=== PATIENT | female | born 1940 | race Caucasian/White ===

== ENCOUNTER 2017-05-03 11:13 | Observation (INO) ==
--- NOTE | 2017-05-03 12:25 | Emergency Department Note ---
START Narrative - START START: I examined this patient and my medical decision-making was reviewed with the [employer]/PA/Advanced Practice Nurse/Resident Physician. I agree with the documented findings, disposition and treatment plan as described except to the extent set forth below. Patient was sent in because an elevated calcium level II days ago. She is essentially asymptomatic at this time. We will call the physician and get the calcium level and repeat a ionized calcium today. Results are pending. [id number]
[2017-05-03 13:24] LABS: VBG Ionized Calcium 1.58 mmol/L (1.15-1.35)
[2017-05-03] MEDS ORDERED: 0.9 % Sodium Chloride 1,000 ML IVC ONE (14:17)
--- NOTE | 2017-05-03 14:17 | Emergency Department Note ---
Disposition Clinical Impression: Hypercalcemia Disposition: Admitted As Inpatient Condition: Fair Time of Disposition: 15:00 Recheck wound or abnormal lab - General Chief Complaint: ED Recheck/Abnormal Lab/Rx Stated Complaint: High Calcium Time Seen by Provider: 05/03/17 11:36 Source: patient, family Mode of arrival: ambulatory Limitations: no limitations Vital Signs Reviewed: Yes - History of Present Illness HPI Narrative: Sammi Person is a 76 year old female presenting due to elevated calcium (13.0) on routine outpatient labs ordered by her tool design drafter, Dr. Lockwood, who she follows for CKD. Patient has been having fatigue for a few weeks and has noticed intermittent nausea for the past few days, though no vomiting. She has had several kidney stones recently and currently has a ureteral stent in place. She admits to polyuria and denies constipation. She denies confusion and neurologic complaints. Her chlorthalidone was discontinued today. She has a known history of uterine cancer and melanoma approximately 10 years ago, and part of her treatment included chemotherapy. - Related Data Home Medications Medication Instructions Recorded Confirmed Amitriptyline HCl [Amitriptyline 75 mg PO DAILY 05/03/17 05/03/17 HCl] Apremilast [Otezla] 30 mg PO BID 05/03/17 05/03/17 Ascorbic Acid [Vitamin C] 500 mg PO DAILY 05/03/17 05/03/17 Aspirin Enteric Coated [Aspirin EC] 81 mg PO DAILY 05/03/17 05/03/17 Carvedilol [Coreg] 25 mg PO BID 05/03/17 05/03/17 Chlorthalidone 12.5 mg PO DAILY 05/03/17 05/03/17 Cinnamon Bark [Cinnamon] 500 mg PO DAILY 05/03/17 05/03/17 Cranberry 500 mg PO DAILY 05/03/17 05/03/17 Fenofibrate Nanocrystallized 160 mg PO DAILY 05/03/17 05/03/17 [Triglide] Fiber Advance 1 tab PO TID 05/03/17 05/03/17 Insulin ASPART [NovoLOG] 16 unit SQ 0800,1200 05/03/17 05/03/17 Insulin ASPART [NovoLOG] 20 unit SQ 1700 05/03/17 05/03/17 Insulin Glargine,Hum.rec.anlog 42 unit SQ DAILY 05/03/17 05/03/17 [Lantus Solostar] Ketoconazole 2% CRM [Nizoral Cream] 1 appl TP DAILY 05/03/17 05/03/17 Lactobacillus [Culturelle] 1 each PO DAILY 05/03/17 05/03/17 Loratadine [Claritin] 10 mg PO DAILY 05/03/17 05/03/17 Multivitamin [One Daily 1 each PO DAILY 05/03/17 05/03/17 Multivitamin] [place]-3/Dha/Epa/Fish Oil [Fish Oil 1,000 mg PO DAILY 05/03/17 05/03/17 1,000 mg Softgel] Potassium Gluconate 594 mg PO DAILY 05/03/17 05/03/17 Pregabalin [Lyrica] 150 mg PO BID 05/03/17 05/03/17 Citizen Of [place] Rivka 2 tab PO DAILY PRN 05/03/17 05/03/17 Triamcinolone Acet 0.1% CRM 1 appl TP DAILY 05/03/17 05/03/17 [Kenalog] Vitamin E Acid Succinate [Vitamin 400 unit PO DAILY 05/03/17 05/03/17 E] hydrALAZINE [HydrALAZINE] 10 mg PO BID 05/03/17 05/03/17 Allergies Allergy/AdvReac Type Severity Reaction Status Date / Time iodine Allergy Rash Verified 05/03/17 11:18 IVP DYE Allergy Rash Uncoded 10/09/14 16:49 Constitutional: Denies: fever, chills Cardiovascular: Denies: chest pain Respiratory: Denies: dyspnea Gastrointestinal: Reports: nausea. Denies: abdominal pain, vomiting Neurological: Denies: headache Past Medical History - Past Medical History Medical history: Reports: cardiomyopathy, CHF, diabetes, hypertension, renal disease Surgical history: Reports: cancer surgery, hysterectomy, pacemaker/AICD Psychiatric history: Reports: no psych history MOTORBOAT MECHANIC INBOARD/OUTBOARD history: Reports: no MOTORBOAT MECHANIC INBOARD/OUTBOARD history - Social History Smoking Status: Never smoker Smokeless Tobacco Status: No Alcohol use: Reports: none Drug use: Reports: none Physical Exam - General Limitations: no limitations General appearance: alert, in no apparent distress - Head Head exam: atraumatic, normocephalic, normal inspection - Respiratory Respiratory exam: Present: normal lung sounds bilaterally. Absent: respiratory distress, accessory muscle use - Cardiovascular Cardiovascular exam: Present: regular rate, normal rhythm, normal heart sounds, +S1, +S2 - Abdominal Exam Abdominal exam: Present: soft, Non-Tender. Absent: distention, guarding, rebound - Neurological Exam Neurological exam: Present: other (reflexes 3+ in the upper extremities bilaterally, 2+ patellar reflexes) - Psychiatric Psychiatric exam: Present: normal affect, normal mood Course Vital Signs Temperature 97.9 F 05/03/17 11:18 Pulse Rate 81 05/03/17 11:18 Respiratory Rate 16 05/03/17 11:18 Blood Pressure 165/82 05/03/17 11:18 O2 Sat by Pulse Oximetry 96 05/03/17 11:18 Temperature 97.9 F 05/03/17 11:18 Pulse Rate 64 05/03/17 14:00 Respiratory Rate 18 05/03/17 14:00 Blood Pressure 159/80 05/03/17 14:00 O2 Sat by Pulse Oximetry 98 05/03/17 14:00 Oxygen Delivery Oxygen Delivery Room Air Recheck wound or abnormal lab - MDM Narrative Medical decision making narrative: Patient presented with elevated calcium of 13.0 on outpatient labs with some symptoms of hypercalcemia including fatigue, kidney stones, and . Chlorthalidone discontinued. Ionized calcium was found to 1.58. Spoke with Dr. Lockwood, who originally sent her for evaluation, about potential for outpatient management vs. observation and workup for hypercalcemia. Favored observation, so patient was started on IV fluids and discussed with Dr. Kramer, the admitting hospitalist. - Lab Data Lab results reviewed: Yes I reviewed the patient's lab results. Lab Results 05/03/17 Range/Units 13:12 Venous Ioniz Calcium 1.58 H (1.15-1.35) mmol/L S.B.A.R. - S.B.A.R. Situation: Demographics Background: Presenting Complaint Assessment: Vital Signs, Course and respsone to treatment, Pertinant Lab Results S.B.A.R. Report Given to: Dr. Kramer S.B.A.REver Repor Time: 15:20
[2017-05-03] MEDS ORDERED: Naloxone 0.4 MG/ML INJ IVP PRN (18:21)
[2017-05-03] MEDS ORDERED: 0.9 % Sodium Chloride 1,000 ML IVC SCH (18:30)
--- NOTE | 2017-05-03 21:18 | Internal Med History&Physical ---
Date of Encounter: 05/03/17 Time of Encounter: 16:14 Assessment and Plan (1) Hypercalcemia Current visit: Yes Status: Acute Will continue IV fluid hydration judiciously as patient has heart failure Workup including PTH, urine calcium, vit D levels, phosphorus, recheck labs in AM (2) Chronic kidney disease, stage III (moderate) Current visit: No Status: Acute (3) ICD (implantable cardioverter-defibrillator) in place Current visit: No Status: Acute (4) CHF (congestive heart failure) Current visit: No Status: Chronic Qualifiers: Qualified Code(s): I50.32 - Chronic diastolic (congestive) heart failure (5) Diabetes mellitus Current visit: No Status: Chronic Diabetic diet, ISS Qualifiers: Diabetes mellitus type: type 2 Diabetes mellitus fci insulin use: with head of product use Diabetes mellitus complication status: with kidney complications Diabetes mellitus complication detail: with chronic kidney disease Chronic kidney disease stage: stage 4 (severe) Qualified Code(s): E11.22 - Type 2 diabetes mellitus with diabetic chronic kidney disease; N18.4 - Chronic kidney disease, stage 4 (severe); Z79.4 - applications scientist (current) use of insulin (6) DVT prophylaxis Current visit: No Status: Acute Internal Medicine - H&P: HPI History of present illness: Sammi Person is a 76 year old female with CKD presenting due to elevated calcium of 13 after getting routine outpatient labs ordered by her float nurse. Patient reports no symptoms at this time but did report some fatigue. She denies any abdominal pain or change in mental status. She has some nausea as well. She has history of kidney stones and has ureteral stent. She is on chlorthalidone which was discontinued today due to elevated calcium. In ED an ioized calcium was checked and elevated at 1.58. Patient admitted for IV fluid treatment of hypercalcemia. Past Med Surg Social Fam HX - Past Medical History Medical history: arthritis, cancer, cardiomyopathy, CHF, diabetes, hypertension , renal disease Psychiatric history: no psych history - Past Surgical History Surgical History: cancer surgery, hysterectomy, pacemaker/AICD - Social History Smoking Status: Never smoker Smokeless Tobacco Status: No Alcohol use: none Drug use: none - Family History Father Adopted: No Family Member Ethnicity: Non- Living Status: Hx Family Cardiac Disorders: Yes Hx Family Respiratory Disorders: No Hx Family Cancer: Yes Hx Family GI Disorders: No Hx Family Endocrine Disorder: Yes Hx Family Neuromuscular Disorders: No Hx Family Neurologic Disorders: No Hx Family HEENT Disorders: No Hx Family Autoimmune Disorders: Yes Internal Medicine - H&P: Meds Amitriptyline HCl [Amitriptyline HCl] 75 mg PO HS 05/03/17 [History] Apremilast [Otezla] 30 mg PO BID 05/03/17 [History] Ascorbic Acid [Vitamin C] 500 mg PO DAILY 05/03/17 [History] Aspirin Enteric Coated [Aspirin EC] 81 mg PO DAILY 05/03/17 [History] Carvedilol [Coreg] 25 mg PO BID 05/03/17 [History] Chlorthalidone 12.5 mg PO DAILY 05/03/17 [History] Cinnamon Bark [Cinnamon] 500 mg PO DAILY 05/03/17 [History] Cranberry 500 mg PO DAILY 05/03/17 [History] Fenofibrate Nanocrystallized [Triglide] 160 mg PO DAILY 05/03/17 [History] Fiber Advance 1 tab PO TID 05/03/17 [History] Insulin ASPART [NovoLOG] 16 unit SQ 0800,1200 05/03/17 [History] Insulin ASPART [NovoLOG] 20 unit SQ 1700 05/03/17 [History] Insulin Glargine,Hum.rec.anlog [Lantus Solostar] 42 unit SQ DAILY 05/03/17 [ History] Ketoconazole 2% CRM [Nizoral Cream] 1 appl TP DAILY 05/03/17 [History] Lactobacillus [Culturelle] 1 each PO DAILY 05/03/17 [History] Loratadine [Claritin] 10 mg PO DAILY 05/03/17 [History] Multivitamin [One Daily Multivitamin] 1 each PO DAILY 05/03/17 [History] [place]-3/Dha/Epa/Fish Oil [Fish Oil 1,000 mg Softgel] 1,000 mg PO DAILY 05/03/17 [History] Potassium Gluconate 594 mg PO DAILY 05/03/17 [History] Pregabalin [Lyrica] 150 mg PO TID 05/03/17 [History] [place] Rivka 2 tab PO DAILY PRN 05/03/17 [History] Triamcinolone Acet 0.1% CRM [Kenalog] 1 appl TP DAILY 05/03/17 [History] Vitamin E Acid Succinate [Vitamin E] 400 unit PO DAILY 05/03/17 [History] hydrALAZINE [HydrALAZINE] 10 mg PO BID 05/03/17 [History] 3 Allergy/AdvReac Type Severity Reaction Status Date / Time iodine Allergy Rash Verified 05/03/17 11:18 IVP DYE Allergy Rash Uncoded 10/09/14 16:49 All Systems PM: A 10-system review of systems was performed and is negative for pertinent findings except as documented above in the HPI. - Constitutional Constitutional: fatigue, no chills, no fever(s), no night sweats - EENT Eyes: no change in vision, no discharge, no pain, no photophobia Ears: no ear discharge, no ear pain, no tinnitus Nose, mouth and throat: no dysphagia, no nasal discharge, no neck pain, no sore throat - Cardiovascular Cardiovascular ROS IM: no chest pain, no diaphoresis, no dyspnea, no lightheadedness, no palpitations, no syncope - Respiratory Respiratory: no cough, no dyspnea, no wheezing, no excessive phlegm production - Gastrointestinal Gastrointestinal: no abdominal pain, no diarrhea, no hematemesis, no hematochezia, no melena, no nausea, no vomiting - Genitourinary Genitourinary: no change in urinary stream, no dysuria, no flank pain, no hematuria - Musculoskeletal Musculoskeletal ROS IM: no numbness, no tingling - Integumentary Integumentary IM: no rash, no unusual bruising - Neurological Neurological ROS: no confusion, no convulsions, no focal weakness, no numbness, no tingling, no tremor(s) - Hematologic/Lymphatic Hematologic/Lymphatic: no easy bruising - Constitutional Vitals: Temp Pulse Resp BP Pulse Ox 97.8 F 77 18 166/77 95 05/03/17 19:45 05/03/17 19:45 05/03/17 19:45 05/03/17 19:45 05/03/17 19:45 - Head Head exam: Present: atraumatic, normocephalic - Eye Eye exam: Present: PERRL, conjuntiva pink, sclera anicteric Pupils: Present: PERRL - Neck Neck exam general surgery: Present: supple, trachea midline. Absent: lymphadenopathy - Respiratory Respiratory exam: Present: CTAB. Absent: accessory muscle use, rales, rhonchi, wheezes - Cardiovascular Cardiovascular exam: Present: RRR, +S1, +S2. Absent: diastolic murmur, gallop, rubs, systolic murmur - GI/Abdominal GI/Abdominal exam: Present: normal bowel sounds, soft, no peritoneal signs. Absent: distended, tenderness - Extremities Exam Extremities exam: Present: warm, radial pulses palpable and symmetrical. Absent : calf tenderness, cyanotic, pedal edema - Neurological Exam Neurological exam: Present: CN II-XII intact, oriented X3, no focal deficits. Absent: pronater drift, facial droop, speech deficit - Skin Skin exam: Present: dry, intact
[2017-05-03] MEDS: 0.9 % Sodium Chloride 1,000 ML IVC SCH (21:46)
[2017-05-03] MEDS ORDERED: KRISS PO PRN (23:06)
[2017-05-04] MEDS: 0.9 % Sodium Chloride 1,000 ML IVC SCH ×3 (03:53→19:22)
[2017-05-04 05:13] LABS: Calcium 11.7 mg/dL (8.6-10.3); Potassium 3.6 mEq/L (3.5-5.1)
[2017-05-04 05:18] LABS: Eosinophils % 4.5 %; Hematocrit 28.3 % (35.3-44.9); Hemoglobin 9.2 g/dL (11.5-15.4); Immature Granulocytes % 0.5 % (0-4); Mean Corpuscular HGB Conc 32.5 g/dL (31.6-35.5); Red Cell Distribution Width 15.4 % (11.5-14.5)
[2017-05-04 05:20] LABS: Eosinophils # 0.2 K/mcL (0.0-0.6); Immature Platelets 16.6 % (1.1-6.1); Lymphocytes # 1.3 K/mcL (0.6-4.6); Lymphocytes % 33.2 %; Mean Corpuscular Hemoglobin 30.8 pg (28.0-33.3); Mean Corpuscular Volume 94.6 fL (83.0-100.0); Mean Platelet Volume 14.1 fL (9.4-12.4); Monocytes # 0.3 K/mcL (0.0-1.3); Monocytes % 8.6 %; Neutrophils # 2.1 K/mcL (1.6-8.9); Nucleated Red Blood Cells 0.5 /100 WBC (0); Red Blood Count 2.99 M/mcL (3.82-4.97); Segmented Neutrophils % 52.2 %
[2017-05-04 05:28] LABS: Platelet Count 74 K/mcL (140-400)
[2017-05-04] MEDS: Fenofibrate 54 MG TABLET PO SCH (08:11)
[2017-05-04] MEDS: Multivit/Ca/Min/Fe/FA 1 TAB TABLET PO SCH (08:11)
[2017-05-04] MEDS: hydrALAZINE 10 MG TABLET PO SCH ×2 (08:11→21:17)
[2017-05-04] MEDS: Aspirin Enteric Coated 81 MG Tablet PO SCH (08:12)
[2017-05-04] MEDS: Ascorbic Acid 500 MG TABLET PO SCH (08:12)
[2017-05-04] MEDS: Insulin LISPRO 300 UNITS/3 ML VIAL SQ SCH ×4 (08:12→16:57)
[2017-05-04] MEDS: Lactobacillus 1 EACH CAP.SPRINK PO SCH (08:12)
[2017-05-04] MEDS: Loratadine 10 MG TABLET PO SCH (08:12)
[2017-05-04] MEDS: Triamcinolone Acet 0.1% CRM 15 GM TUBE TP SCH (08:18)
[2017-05-04] MEDS: Ketoconazole 2% CRM 15 GM TUBE TP SCH (08:18)
[2017-05-04 08:23] LABS: VBG Ionized Calcium 1.39 mmol/L (1.15-1.35)
[2017-05-04] MEDS ORDERED: *HR* Dextrose 50 % in Water (Syg) 50 ML SYRINGE IVP PRN (08:51)
[2017-05-04] MEDS ORDERED: Dextrose Gel 15 GM/37.5 ML TUBE PO PRN ×2 (08:51)
[2017-05-04] MEDS ORDERED: D5% in Water 1,000 ML IVC PRN (08:51)
[2017-05-04] MEDS ORDERED: POTASSIUM GLUCONATE PO SCH (09:00)
[2017-05-04] MEDS ORDERED: (Fish Oil 1,000 Mg Softgel) PO SCH (09:00)
[2017-05-04] MEDS ORDERED: (Apremilast [Otezla] 30 MG) PO SCH (09:00)
[2017-05-04] MEDS ORDERED: (Cranberry [Cranberry] 500 MG) PO SCH (09:00)
[2017-05-04] MEDS ORDERED: (Cinnamon Bark [Cinnamon] 500 MG) PO SCH (09:00)
[2017-05-04] MEDS ORDERED: Pregabalin 75 MG CAPSULE PO SCH ×2 (09:00→15:00)
--- NOTE | 2017-05-04 09:59 | Internal Med Progress Note ---
Date of Encounter: 05/04/17 Time of Encounter: 09:54 - Assessment and plan (1) Hypercalcemia Current Visit: Yes Status: Acute Assessment and plan: - PTH low, Phos normal. Pt states she did not take Tums or other calcium containing meds, Vit D level normal, will order PTH-rp. - Likely etiology is medication side-effect of Chlothalidone. Chlothalidone dc' ed. - Ca 11.7 down from 13 today. - continue IVF, repeat BMP in am. (2) Diabetes mellitus Current Visit: No Status: Chronic Assessment and plan: fairly well-controlled, continue insulin and insulin SS. Qualifiers: Diabetes mellitus type: type 2 Diabetes mellitus director long term care insulin use: with senior living use Diabetes mellitus complication status: with kidney complications Diabetes mellitus complication detail: with chronic kidney disease Chronic kidney disease stage: stage 4 (severe) Qualified Code(s): E11.22 - Type 2 diabetes mellitus with diabetic chronic kidney disease; N18.4 - Chronic kidney disease, stage 4 (severe); N18.4 - Chronic kidney disease, stage 4 (severe); N18.4 - Chronic kidney disease, stage 4 (severe); N18.4 - Chronic kidney disease, stage 4 (severe); Z79.4 - care home (current) use of insulin; Z79.4 - termination clerk (current) use of insulin; Z79.4 - care home (current) use of insulin; Z79.4 - care home (current) use of insulin (3) ICD (implantable cardioverter-defibrillator) in place Current Visit: No Status: Acute (4) Chronic kidney disease, stage III (moderate) Current Visit: No Status: Chronic Assessment and plan: - stable. - Time Spent With Patient 25 - 35 minutes - Subjective Interval history: Pt seen and examined. She has no complaints and wants to go home. - Constitutional Vitals: Temp Pulse Resp BP Pulse Ox 97.9 F 65 16 137/78 96 05/04/17 06:42 05/04/17 06:42 05/04/17 06:42 05/04/17 06:42 05/04/17 06:42 Exam: PHYSICAL EXAMINATION: GENERAL APPEARANCE: The patient is alert, oriented and in no acute distress. HEENT: Head is normocephalic. The sinuses are nontender. Pupils are equal and reactive. The nares are patent. Oropharynx clear without lesions. NECK: Supple without lymphadenopathy. HEART: Regular rate and rhythm. LUNGS: No crackles or wheezes are heard. ABDOMEN: Soft, nontender, nondistended with good bowel sounds heard. Inguinal area is normal. EXTREMITIES: Without cyanosis, clubbing or edema. NEUROLOGICAL: Gross nonfocal. SKIN: Warm and dry without any rash. Internal Medicine: Result - Labs CBC & Chem 7: 05/04/17 04:33 05/04/17 04:33 Labs: Short CBC 05/04/17 Range/Units 04:33 WBC 4.0 L (4.3-11.1) K/mcL Hgb 9.2 L (11.5-15.4) g/dL Hct 28.3 L (35.3-44.9) % Plt Count 74 L (140-400) K/mcL Neutrophils # 2.1 (1.6-8.9) K/mcL BMP 05/04/17 04:33 Sodium 139 Potassium 3.6 Chloride 106 Carbon Dioxide 25 BUN 47 H Creatinine 2.00 H Glucose 114 H Calcium 11.7 H Consult Discharge Plan - Plan Referrals: Murphy Huang Jr, MD [Primary Care Provider] -
[2017-05-04] MEDS: Psyllium 1 PACKET POWD.PACK PO SCH ×2 (15:19→21:18)
[2017-05-04] MEDS: Pregabalin 75 MG CAPSULE PO SCH ×2 (15:20→21:17)
[2017-05-04] MEDS ORDERED: Insulin LISPRO 300 UNITS/3 ML VIAL SQ SCH ×2 (17:00→21:00)
[2017-05-05] MEDS ORDERED: 0.9 % Sodium Chloride 1,000 ML IVC SCH (02:30)
[2017-05-05 03:57] LABS: Hemoglobin 8.7 g/dL (11.5-15.4); Red Cell Distribution Width 15.5 % (11.5-14.5)
[2017-05-05 03:59] LABS: Hematocrit 27.4 % (35.3-44.9); Immature Platelets 14.7 % (1.1-6.1); Mean Corpuscular HGB Conc 31.8 g/dL (31.6-35.5); Mean Corpuscular Hemoglobin 30.7 pg (28.0-33.3); Mean Corpuscular Volume 96.8 fL (83.0-100.0); Mean Platelet Volume 13.7 fL (9.4-12.4); Red Blood Count 2.83 M/mcL (3.82-4.97)
[2017-05-05 04:02] LABS: Calcium 9.4 mg/dL (8.6-10.3); Potassium 3.7 mEq/L (3.5-5.1)
[2017-05-05] MEDS: Aspirin Enteric Coated 81 MG Tablet PO SCH (08:21)
[2017-05-05] MEDS: Pregabalin 75 MG CAPSULE PO SCH (08:21)
[2017-05-05] MEDS: Multivit/Ca/Min/Fe/FA 1 TAB TABLET PO SCH (08:21)
[2017-05-05] MEDS: Fenofibrate 54 MG TABLET PO SCH (08:21)
[2017-05-05] MEDS: Lactobacillus 1 EACH CAP.SPRINK PO SCH (08:21)
[2017-05-05] MEDS: hydrALAZINE 10 MG TABLET PO SCH (08:21)
[2017-05-05] MEDS: Psyllium 1 PACKET POWD.PACK PO SCH (08:21)
[2017-05-05] MEDS: Ascorbic Acid 500 MG TABLET PO SCH (08:21)
[2017-05-05] MEDS: Triamcinolone Acet 0.1% CRM 15 GM TUBE TP SCH (08:22)
[2017-05-05] MEDS: 0.9 % Sodium Chloride 1,000 ML IVC SCH (08:22)
[2017-05-05] MEDS: Loratadine 10 MG TABLET PO SCH (08:22)
[2017-05-05] MEDS: Ketoconazole 2% CRM 15 GM TUBE TP SCH (08:23)
[2017-05-05] MEDS: Insulin LISPRO 300 UNITS/3 ML VIAL SQ SCH ×4 (08:23→12:18)
[2017-05-05 10:47] VITALS: BP 120/64
--- NOTE | 2017-05-05 11:47 | Discharge Summary ---
- NOTES TO OUTPATIENT PROVIDER Notes to Outpatient Provider: f/u with PCP within a week for PTH-rp results and repeat BMP for hypercalcemia. f/u with nephrology within a week. f/u with urology for stent removal. Orders not resulted at time of discharge: Pending orders 05/04/17 10:47 Parathormone Related Peptide Routine Date of Encounter: 05/05/17 Time of Encounter: 11:44 - Discharge Diagnosis (1) Hypercalcemia Priority: Primary Status: Acute (2) Diabetes mellitus Priority: Secondary Status: Chronic Qualifiers: Diabetes mellitus type: type 2 Diabetes mellitus middle or intermediate school principal insulin use: with middle or intermediate school principal use Diabetes mellitus complication status: with kidney complications Diabetes mellitus complication detail: with chronic kidney disease Chronic kidney disease stage: stage 4 (severe) Qualified Code(s): E11.22 - Type 2 diabetes mellitus with diabetic chronic kidney disease; N18.4 - Chronic kidney disease, stage 4 (severe); N18.4 - Chronic kidney disease, stage 4 (severe); N18.4 - Chronic kidney disease, stage 4 (severe); N18.4 - Chronic kidney disease, stage 4 (severe); Z79.4 - halfway (current) use of insulin; Z79.4 - intermediate manager (current) use of insulin; Z79.4 - intermediate manager (current) use of insulin; Z79.4 - intermediate manager (current) use of insulin (3) ICD (implantable cardioverter-defibrillator) in place Priority: Secondary Status: Chronic (4) Chronic kidney disease, stage III (moderate) Priority: Secondary Status: Chronic Hospital course: Ms. Person is a 76 year old female with past medical history of CKD, kidney stone, and diabetes presented from her physician's office for hypercalcemia. Initial serum calcium was 13. She was treated with IV fluid, serum calcium gradually decreased. It is 9.7 on discharge day. Labs revealed decreased PTH, normal phosphorus, normal vitamin D level, and normal TSH. PTH related peptide was ordered but results still pending. Chest x-ray to screening for malignancy was negative. Her urine calcium level was normal. It is suspected that hypercalcemia was medication related, chlorthalidone was DC'd. Her calcium level has returned to normal levels this morning. She will be discharged home today. She was instructed to follow-up PCP within a week for repeat calcium level and review the test results of PTH related peptide. She will also follow-up with urology for kidney stone and the ureteral stent removal. She will also follow up with nephrology for chronic kidney disease. She was instructed to stop taking chlorthalidone. Discharge discussed with: patient, nurse Time spent discussing smoking cessation with patient: more than 10 minutes - Time Spent with Patient Total time spent providing and/or coordinating discharge services: Greater than 30 minutes - Discharge Medications Home Medications: Amitriptyline HCl 75 mg PO HS 05/03/17 [History] Apremilast [Otezla] 30 mg PO BID 05/03/17 [History] Ascorbic Acid [Vitamin C] 500 mg PO DAILY 05/03/17 [History] Aspirin Enteric Coated [Aspirin EC] 81 mg PO DAILY 05/03/17 [History] Carvedilol [Coreg] 25 mg PO BID 05/03/17 [History] Cinnamon Bark [Cinnamon] 500 mg PO DAILY 05/03/17 [History] Cranberry 500 mg PO DAILY 05/03/17 [History] Fenofibrate Nanocrystallized [Triglide] 160 mg PO DAILY 05/03/17 [History] Fiber Advance 1 tab PO TID 05/03/17 [History] Insulin ASPART [NovoLOG] 16 unit SQ 0800,1200 05/03/17 [History] Insulin ASPART [NovoLOG] 20 unit SQ 1700 05/03/17 [History] Insulin Glargine,Hum.rec.anlog [Lantus Solostar] 42 unit SQ DAILY 05/03/17 [ History] Ketoconazole 2% CRM [Nizoral Cream] 1 appl TP DAILY 05/03/17 [History] Lactobacillus [Culturelle] 1 each PO DAILY 05/03/17 [History] Loratadine [Claritin] 10 mg PO DAILY 05/03/17 [History] Multivitamin [One Daily Multivitamin] 1 each PO DAILY 05/03/17 [History] [place]-3/Dha/Epa/Fish Oil [Fish Oil 1,000 mg Softgel] 1,000 mg PO DAILY 05/03/17 [History] Potassium Gluconate 594 mg PO DAILY 05/03/17 [History] Pregabalin [Lyrica] 150 mg PO TID 05/03/17 [History] [place] Rivka 2 tab PO DAILY PRN 05/03/17 [History] Triamcinolone Acet 0.1% CRM [Kenalog] 1 appl TP DAILY 05/03/17 [History] Vitamin E Acid Succinate [Vitamin E] 400 unit PO DAILY 05/03/17 [History] hydrALAZINE [HydrALAZINE] 10 mg PO BID 05/03/17 [History] Allergies/Adverse Reactions: 3 Allergy/AdvReac Type Severity Reaction Status Date / Time iodine Allergy Rash Verified 05/03/17 11:18 IVP DYE Allergy Rash Uncoded 10/09/14 16:49 Date of admission: 05/03/17 18:18 Primary care physician: Murphy Huang Jr, MD Anticipated date of discharge: 05/05/17 - Constitutional Vitals: Temp Pulse Resp BP Pulse Ox 97.9 F 88 15 120/64 95 05/05/17 10:46 05/05/17 10:46 05/05/17 10:46 05/05/17 10:46 05/05/17 10:46 Exam: PHYSICAL EXAMINATION: GENERAL APPEARANCE: The patient is alert, oriented and in no acute distress. HEENT: Head is normocephalic. The sinuses are nontender. Pupils are equal and reactive. The nares are patent. Oropharynx clear without lesions. NECK: Supple without lymphadenopathy. HEART: Regular rate and rhythm. LUNGS: No crackles or wheezes are heard. ABDOMEN: Soft, nontender, nondistended with good bowel sounds heard. Inguinal area is normal. EXTREMITIES: Without cyanosis, clubbing or edema. NEUROLOGICAL: Gross nonfocal. SKIN: Warm and dry without any rash. - Patient Status Disposition: Home, Self-Care Condition: Fair Functional capacity at discharge: independent ambulation Overall status at discharge: patient is back to baseline - Discharge Instructions Follow Up With: Murphy Huang Jr, MD [Primary Care Provider] - - Diet and Activity Activity: increase activity as tolerated Diet: diabetic diet
== END 2017-05-05 13:10 | disposition home or self-care (01) ==
LOC: EMEROO 11:13 → 2ANU 11:13
PROVIDERS: ADMIT Student in an Organized Health Care Education/Training Program; ATTEND Family Medicine

== ENCOUNTER 2017-09-26 19:56 | Inpatient (IN) ==
[2017-09-26 20:29] LABS: Basophils # 0.1 K/mcL (0.0-0.2); Basophils % 0.9 %; Eosinophils # 0.1 K/mcL (0.0-0.6); Eosinophils % 1.8 %; Hematocrit 32.6 % (35.3-44.9); Hemoglobin 10.6 g/dL (11.5-15.4); Immature Granulocytes % 0.9 % (0-4); Lymphocytes # 1.2 K/mcL (0.6-4.6); Lymphocytes % 17.8 %; Mean Corpuscular HGB Conc 32.5 g/dL (31.6-35.5); Mean Corpuscular Hemoglobin 30.5 pg (28.0-33.3); Mean Corpuscular Volume 93.7 fL (83.0-100.0); Mean Platelet Volume 13.1 fL (9.4-12.4); Monocytes # 0.6 K/mcL (0.0-1.3); Monocytes % 8.2 %; Neutrophils # 4.7 K/mcL (1.6-8.9); Platelet Count 109 K/mcL (140-400); Red Blood Count 3.48 M/mcL (3.82-4.97); Red Cell Distribution Width 15.9 % (11.5-14.5); Segmented Neutrophils % 70.4 %
[2017-09-26 20:40] LABS: Bilirubin,Urine Negative (Negative); Blood,Urine Moderate (Negative); Clarity,Urine Turbid (Clear); Color,Urine Yellow (Yellow); Glucose,Urine (UA) Normal (Normal); Ketones,Urine Negative (Negative); Leukocyte Esterase,Urine Large (Negative); Nitrite,Urine Negative (Negative); Protein,Urine >=300 mg/dL (Neg-Trace); Specific Gravity,Urine 1.023 (1.010-1.025); Urobilinogen,Urine Normal (Normal)
[2017-09-26 20:44] LABS: WBC,Urine TNTC per hpf (0-3)
[2017-09-26 20:45] LABS: Calcium 9.5 mg/dL (8.6-10.3); Potassium 5.1 mEq/L (3.5-5.1)
[2017-09-26 20:47] LABS: RBC,Urine Present per hpf (0-3); Squamous Epithelial Cell,Urine Present per lpf (None-Few)
[2017-09-26 20:48] LABS: Bacteria,Urine Present per hpf (None-Few)
--- NOTE | 2017-09-26 21:03 | Emergency Department Note ---
Disposition Clinical Impression: Ureterolithiasis, Bladder mass, Acute kidney injury Hydronephrosis Qualifiers: Hydronephrosis type: unspecified Qualified Code(s): N13.30 - Unspecified hydronephrosis Disposition: Admitted As Inpatient Condition: Good Referrals: Murphy Huang Jr, MD [Primary Care Provider] - Forms: ED Satisfaction Letter, Work/School Release Abdominal Pain HPI - General Chief Complaint: ED Abdominal Pain Stated Complaint: lower left quadrant pain incontinency Time Seen by Provider: 09/26/17 20:10 Source: patient, family Mode of arrival: private vehicle Limitations: no limitations Nursing Notes Reviewed: Yes Vital Signs Reviewed: Yes - History of Present Illness HPI Narrative: 77-year-old female presents to the ER with a complaint of left lower quadrant pain. Symptoms for the last couple of days. She has been treated as an outpatient over the last month on a course of Macrobid. She states she continues to have dysuria. She denies any fevers, nausea, vomiting or diarrhea. Pain is localized to the left lower quadrant. Reports that she had a stone removed several months ago. She reports a past surgical history of cholecystectomy, appendectomy, radical hysterectomy. No other complaints. Pt Subjective Complaint: abdominal pain Onset (ago): day(s) Consistency: intermittent Location: LLQ Pain Severity: severe Pain Scale: 10 Radiation: none Migration to: no migration Improves with: nothing Worsens with: other (Urinating) Associated symptoms: Reports: dysuria Treatments prior to arrival: none - Related Data Home Medications Medication Instructions Recorded Confirmed Amitriptyline HCl 75 mg PO HS 05/03/17 09/26/17 Ascorbic Acid [Vitamin C] 500 mg PO DAILY 05/03/17 09/26/17 Aspirin Enteric Coated [Aspirin EC] 81 mg PO DAILY 05/03/17 09/26/17 Carvedilol [Coreg] 25 mg PO BID 05/03/17 09/26/17 Cinnamon Bark [Cinnamon] 500 mg PO DAILY 05/03/17 09/26/17 Cranberry 500 mg PO DAILY 05/03/17 09/26/17 Fenofibrate Nanocrystallized 160 mg PO DAILY 05/03/17 09/26/17 [Triglide] Fiber Advance 1 tab PO TID 05/03/17 09/26/17 Insulin ASPART [NovoLOG] 16 unit SQ 0800,1200 05/03/17 09/26/17 Insulin ASPART [NovoLOG] 20 unit SQ 1700 05/03/17 09/26/17 Insulin Glargine,Hum.rec.anlog 42 unit SQ DAILY 05/03/17 09/26/17 [Lantus Solostar] Ketoconazole 2% CRM [Nizoral Cream] 1 appl TP DAILY 05/03/17 09/26/17 Lactobacillus [Culturelle] 1 each PO DAILY 05/03/17 09/26/17 Loratadine [Claritin] 10 mg PO DAILY 05/03/17 09/26/17 Multivitamin [One Daily 1 each PO DAILY 05/03/17 09/26/17 Multivitamin] [place]-3/Dha/Epa/Fish Oil [Fish Oil 1,000 mg PO DAILY 05/03/17 09/26/17 1,000 mg Softgel] Potassium Gluconate 594 mg PO DAILY 05/03/17 09/26/17 Pregabalin [Lyrica] 150 mg PO BID 05/03/17 09/26/17 Icelandic Rivka 2 tab PO DAILY PRN 05/03/17 09/26/17 Triamcinolone Acet 0.1% CRM 1 appl TP DAILY 05/03/17 09/26/17 [Kenalog] Vitamin E Acid Succinate [Vitamin 400 unit PO DAILY 05/03/17 09/26/17 E] hydrALAZINE [HydrALAZINE] 10 mg PO BID 05/03/17 09/26/17 Nitrofurantoin (BID) [Macrobid] 100 mg PO DAILY 09/26/17 09/26/17 Secukinumab [Cosentyx Pen] 300 mg SQ QMONTH 09/26/17 09/26/17 Allergies Allergy/AdvReac Type Severity Reaction Status Date / Time iodine Allergy Rash Verified 09/26/17 21:31 IVP DYE Allergy Rash Uncoded 09/26/17 19:57 All systems ED: reviewed and negative except as stated. Constitutional: Denies: fever Gastrointestinal: Reports: abdominal pain. Denies: nausea, vomiting, diarrhea Genitourinary: Reports: dysuria. Denies: hematuria Abdominal Pain PMH - Past Medical History Medical history: Reports: CHF, diabetes, hypertension, kidney stones Female Surgical History: Reports: appendectomy, cholecystectomy, hysterectomy, pacemaker/AICD DOG HAIR CLIPPER history: Reports: no DOG HAIR CLIPPER history Psychiatric history: Reports: no psych history - Social History Smoking status: Never smoker Alcohol use: Reports: none Drug use: Reports: none Physical Exam - General Limitations: no limitations General appearance: alert, in no apparent distress - Head Head exam: atraumatic, normocephalic - Eye Eye exam: Present: normal appearance - ENT ENT exam: normal exam - Neck Neck exam: Present: normal inspection - Chest Chest inspection: Present: normal inspection - Respiratory Respiratory exam: Present: normal lung sounds bilaterally - Cardiovascular Cardiovascular exam: Present: regular rate, normal rhythm, normal heart sounds - Abdominal Exam Abdominal exam: Present: soft, Non-Tender. Absent: tenderness, distention, guarding, rigidity - Extremities Exam Extremities exam: Present: normal inspection, full ROM - Expanded Upper Extremity Exam Shoulder exam: Present: normal inspection, full ROM Arm exam: Present: normal inspection, full ROM Elbow exam: Present: normal inspection, full ROM Forearm/Wrist exam: Present: normal inspection, full ROM Hand exam: Present: normal inspection, full ROM - Expanded Lower Extremity Exam Hip/Pelvis exam: Present: normal inspection, full ROM Upper leg exam: Present: normal inspection, full ROM Knee exam: Present: normal inspection, full ROM Lower leg exam: Present: normal inspection, full ROM Ankle exam: Present: normal inspection, full ROM Foot/toe exam: Present: normal inspection, full ROM - Skin Skin exam: Present: warm, dry Course Course Narrative: Patient seen and examined. Vital signs reviewed. CT imaging, labs, urinalysis. No pain at time of evaluation. - Consultations Consultation #1: I spoke with the on-call urologist Dr. Harris. Discussed patient's history exam imaging and labs. Agreeable with consultation with admission to the hospitalist. Vital Signs Temperature 99.3 F 09/26/17 19:58 Pulse Rate 105 09/26/17 19:58 Respiratory Rate 16 09/26/17 19:58 Blood Pressure 158/80 09/26/17 19:58 O2 Sat by Pulse Oximetry 94 09/26/17 19:58 Temperature 99.3 F 09/26/17 19:58 Pulse Rate 105 09/26/17 19:58 Respiratory Rate 16 09/26/17 19:58 Blood Pressure 158/80 09/26/17 19:58 O2 Sat by Pulse Oximetry 94 08/08/18 19:58 Oxygen Delivery Oxygen Delivery Room Air Abdominal Pain - MDM Narrative Medical decision making narrative: 77-year-old female with left lower quadrant abdominal pain. CT imaging demonstrates a urinary mass with tumor versus inflammatory process as well as a distal right ureteral stone causing bilateral hydronephrosis. Given his findings with a urinalysis demonstrating a UTI the patient is admitted to the hospital service with neurologic consultation. - Lab Data Lab results reviewed: Yes I reviewed the patient's lab results. Result diagrams: 09/26/17 20:14 09/26/17 20:14 Lab Results 09/26/17 09/26/17 09/26/17 Range/Units 20:14 20:14 20:14 WBC 6.7 (4.3-11.1) K/mcL RBC 3.48 L (3.82-4.97) M/mcL Hgb 10.6 L (11.5-15.4) g/dL Hct 32.6 L (35.3-44.9) % MCV 93.7 (83.0-100.0) fL MCH 30.5 (28.0-33.3) pg MCHC 32.5 (31.6-35.5) g/dL RDW 15.9 H (11.5-14.5) % Plt Count 109 L (140-400) K/mcL MPV 13.1 H (9.4-12.4) fL Immature Gran % 0.9 (0-4) % Seg Neutrophils % 70.4 % Lymphocytes % 17.8 % Monocytes % 8.2 % Eosinophils % 1.8 % Basophils % 0.9 % Neutrophils # 4.7 (1.6-8.9) K/mcL Lymphocytes # 1.2 (0.6-4.6) K/mcL Monocytes # 0.6 (0.0-1.3) K/mcL Eosinophils # 0.1 (0.0-0.6) K/mcL Basophils # 0.1 (0.0-0.2) K/mcL Sodium 136 (136-145) mEq/L Potassium 5.1 (3.5-5.1) mEq/L Chloride 103 (98-107) mEq/L Carbon Dioxide 24 (23-29) mEq/L BUN 51 H (8-23) mg/dL Creatinine 2.49 H (0.60-1.20) mg/dL Est GFR ( Amer) 23 L (> 60) Est GFR (Non-Af Amer) 19 L (> 60) BUN/Creatinine Ratio 20 (6-26) Glucose 233 H (70-105) mg/dL Calculated Osmolality 303 H (280-300) Lactic Acid 1.4 (0.5-2.2) mmol/L Calcium 9.5 (8.6-10.3) mg/dL Ur Specimen Adequacy Urine Color (Yellow) Urine Clarity (Clear) Urine pH (5.0-8.0) pH Units Ur Specific [place] (1.010-1.025) Urine Protein (Neg-Trace) mg/dL Urine Glucose (UA) (Normal) mg/dL Urine Ketones (Negative) mg/dL Urine Blood (Negative) Urine Nitrite (Negative) Urine Bilirubin (Negative) Urine Urobilinogen (Normal) mg/dL Ur Leukocyte Esterase (Negative) Urine Microscopic RBC (0-3) per hpf Urine Microscopic WBC (0-3) per hpf Ur Squamous Epith Cells (None-Few) per lpf Urine Bacteria (None-Few) per hpf Hyaline Casts Urine Yeast Ur Culture Indicated? (NO) 09/26/17 Range/Units 20:23 WBC (4.3-11.1) K/mcL RBC (3.82-4.97) M/mcL Hgb (11.5-15.4) g/dL Hct (35.3-44.9) % MCV (83.0-100.0) fL MCH (28.0-33.3) pg MCHC (31.6-35.5) g/dL RDW (11.5-14.5) % Plt Count (140-400) K/mcL MPV (9.4-12.4) fL Immature Gran % (0-4) % Seg Neutrophils % % Lymphocytes % % Monocytes % % Eosinophils % % Basophils % % Neutrophils # (1.6-8.9) K/mcL Lymphocytes # (0.6-4.6) K/mcL Monocytes # (0.0-1.3) K/mcL Eosinophils # (0.0-0.6) K/mcL Basophils # (0.0-0.2) K/mcL Sodium (136-145) mEq/L Potassium (3.5-5.1) mEq/L Chloride (98-107) mEq/L Carbon Dioxide (23-29) mEq/L BUN (8-23) mg/dL Creatinine (0.60-1.20) mg/dL Est GFR ( Amer) (> 60) Est GFR (Non-Af Amer) (> 60) BUN/Creatinine Ratio (6-26) Glucose (70-105) mg/dL Calculated Osmolality (280-300) Lactic Acid (0.5-2.2) mmol/L Calcium (8.6-10.3) mg/dL Ur Specimen Adequacy See below A Urine Color Yellow (Yellow) Urine Clarity Turbid A (Clear) Urine pH 7.0 (5.0-8.0) pH Units Ur Specific [place] 1.023 (1.010-1.025) Urine Protein >=300 H (Neg-Trace) mg/dL Urine Glucose (UA) Normal (Normal) mg/dL Urine Ketones Negative (Negative) mg/dL Urine Blood Moderate H (Negative) Urine Nitrite Negative (Negative) Urine Bilirubin Negative (Negative) Urine Urobilinogen Normal (Normal) mg/dL Ur Leukocyte Esterase Large H (Negative) Urine Microscopic RBC Present (0-3) per hpf Urine Microscopic WBC TNTC H (0-3) per hpf Ur Squamous Epith Cells Present (None-Few) per lpf Urine Bacteria Present (None-Few) per hpf Hyaline Casts Test Not Performed Urine Yeast Test Not Performed Ur Culture Indicated? YES A (NO) - Radiology Data Radiology results reviewed: Yes I reviewed the patient's radiology results. Abdomen/Pelvis CT 09/26/17 20:11 IMPRESSION: There is a mass of the left aspect of the urinary bladder accounting for the partial obstruction of the distal left ureter. Tumor is suspected. Asymmetric bladder wall hypertrophy or asymmetric inflammatory change of cystitis are less likely. Moderate right hydronephrosis and hydroureter secondary to an obstructing distal right ureteral calculus. The suspected bladder wall tumor may be contributory. 1.6 cm nonobstructing right renal calculus. Follow-up cystoscopy and biopsy recommended. D/ / Mode Gutierrez MD / Mode Gutierrez MD Interpreting Provider: Mode Gutierrez MD S.B.A.R. - S.B.A.R. Situation: Demographics, MOA Background: Presenting Complaint, Relevant PMH, Meds, & Allergies Assessment: Vital Signs, Course and respsone to treatment, Exam Concerns, Patient/Family Expectation, Pertinant Lab Results Recommendation: Barrier(s) to disposition, Recommendation based on pending studies, treatments, or consults Hang Report Given to: Dr. Megan Mauricio Repor Time: 21:44 Attestation Statement - Attestation Attestation: I examined this patient and my medical decision-making was reviewed with the Resident Physician. I agree with the documented findings, disposition and treatment plan as described except to the extent set forth below. Findings consistent with bladder mass. Spoke with urology. We will admit for neurology consultation evaluation of obstructing bladder mass.
[2017-09-26] MEDS ORDERED: 0.9 % Sodium Chloride 1,000 ML IVC ONE (21:09)
[2017-09-26] MEDS ORDERED: cefTRIAXone 1,000 MG in Water for inj. (sterile) 20 ML 10 ML IVP ONE (21:24)
[2017-09-26] MEDS ORDERED: *HR* OxyCODONE Immed Rel 5 MG TABLET PO PRN (21:41)
[2017-09-26] MEDS ORDERED: Naloxone 0.4 MG/ML INJ IVP PRN (21:41)
[2017-09-26] MEDS ORDERED: Acetaminophen 325 MG TABLET PO PRN (21:41)
[2017-09-26] MEDS ORDERED: *HR* HYDROcodone/Acet 5/325 mg TABLET PO PRN (21:41)
[2017-09-26] MEDS ORDERED: D5% in Water 1,000 ML IVC PRN (21:44)
[2017-09-26] MEDS ORDERED: *HR* Dextrose 50 % in Water (Syg) 50 ML SYRINGE IVP PRN (21:44)
[2017-09-26] MEDS ORDERED: Dextrose Gel 15 GM/37.5 ML TUBE PO PRN ×2 (21:44)
--- NOTE | 2017-09-26 22:14 | Internal Med History&Physical ---
Date of Encounter: 09/26/17 Time of Encounter: 21:40 Internal Medicine - H&P: HPI Chief complaint: Left lower quadrant pain History of present illness: Ms. Person is a 77 year old female with PMHx of uterine cancer status post KRISTIN/ BSO and radiation, diabetes, psoriasis, recurrent UTI, peripheral neuropathy, presented to the ED with 3 day history of worsening left lower quadrant pain associated with dysuria. She has been treated for chronic UTI with PO Macrobid for the last 2-3 months. She states that she has been feeling slightly better until last Sunday when she developed intermittent, sharp left lower quadrant pain. Only occurs when she urinates. Associated with urinary frequency. No hematuria. Denies fever/chills, N/V, or change in bowel habits. No chest pain, shortness of breath, cough, sputum production, orthopnea, PND, or LE swelling. In the ED, she was afebrile and hemodynamically stable. Labs showed normal white blood cell count, creatinine of 2.49 (baseline fluctuates from 1.6-2.0), and urinalysis positive for large amount of leukocyte esterase. CT abdomen pelvis revealed a mass of the left aspect of the urinary bladder accounting for partial obstruction of the distal left ureter. There is also moderate right- sided hydronephrosis and hydroureter secondary to an obstructing distal right ureteral calculus. She was given IV Rocephin and admitted for further management. Past Med Surg Social Fam HX - Past Medical History Attestation: Yes The following information was validated with the patient. Medical history: CHF, diabetes, hypertension, kidney stones Additional medical history: melanoma cancer s/p resection + cheom, uterine CA s/ p TAHBSO + radiation, kidney disease stage 3, psoriasis Psychiatric history: no psych history - Past Surgical History Surgical History: cancer surgery, hysterectomy, pacemaker/AICD Additional surgical history: back surgery - Social History Smoking Status: Never smoker Smokeless Tobacco Status: No Alcohol use: none Drug use: none - Family History Father Adopted: No Family Member Ethnicity: Non- Living Status: Hx Family Cardiac Disorders: Yes Hx Family Respiratory Disorders: No Hx Family Cancer: Yes Hx Family GI Disorders: No Hx Family Endocrine Disorder: Yes Hx Family Neuromuscular Disorders: No Hx Family Neurologic Disorders: No Hx Family HEENT Disorders: No Hx Family Autoimmune Disorders: Yes Internal Medicine - H&P: Meds Amitriptyline HCl 75 mg PO HS 05/03/17 [History] Ascorbic Acid [Vitamin C] 500 mg PO DAILY 05/03/17 [History] Aspirin Enteric Coated [Aspirin EC] 81 mg PO DAILY 05/03/17 [History] Carvedilol [Coreg] 25 mg PO BID 05/03/17 [History] Cinnamon Bark [Cinnamon] 500 mg PO DAILY 05/03/17 [History] Cranberry 500 mg PO DAILY 05/03/17 [History] Fenofibrate Nanocrystallized [Triglide] 160 mg PO DAILY 05/03/17 [History] Fiber Advance 1 tab PO TID 05/03/17 [History] Insulin ASPART [NovoLOG] 16 unit SQ 0800,1200 05/03/17 [History] Insulin ASPART [NovoLOG] 20 unit SQ 1700 05/03/17 [History] Insulin Glargine,Hum.rec.anlog [Lantus Solostar] 42 unit SQ DAILY 05/03/17 [ History] Ketoconazole 2% CRM [Nizoral Cream] 1 appl TP DAILY 05/03/17 [History] Lactobacillus [Culturelle] 1 each PO DAILY 05/03/17 [History] Loratadine [Claritin] 10 mg PO DAILY 05/03/17 [History] Multivitamin [One Daily Multivitamin] 1 each PO DAILY 05/03/17 [History] [place]-3/Dha/Epa/Fish Oil [Fish Oil 1,000 mg Softgel] 1,000 mg PO DAILY 05/03/17 [History] Potassium Gluconate 594 mg PO DAILY 05/03/17 [History] Pregabalin [Lyrica] 150 mg PO BID 05/03/17 [History] Guatemalan Rivka 2 tab PO DAILY PRN 05/03/17 [History] Triamcinolone Acet 0.1% CRM [Kenalog] 1 appl TP DAILY 05/03/17 [History] Vitamin E Acid Succinate [Vitamin E] 400 unit PO DAILY 05/03/17 [History] hydrALAZINE [HydrALAZINE] 10 mg PO BID 05/03/17 [History] Nitrofurantoin (BID) [Macrobid] 100 mg PO DAILY 09/26/17 [History] Secukinumab [Cosentyx Pen] 300 mg SQ QMONTH 09/26/17 [History] 3 Allergy/AdvReac Type Severity Reaction Status Date / Time iodine Allergy Rash Verified 09/26/17 21:31 IVP DYE Allergy Rash Uncoded 09/26/17 19:57 All Systems PM: A 10-system review of systems was performed and is negative for pertinent findings except as documented above in the HPI. - Constitutional Vitals: Temp Pulse Resp BP Pulse Ox 99.3 F 105 16 158/80 94 09/26/17 19:58 09/26/17 19:58 09/26/17 19:58 09/26/17 19:58 09/26/17 19:58 Exam: General: Alert and oriented, not in distress HEENT:EOM, pupils equal, round, and reactive. Cardiovascular:Normal S1 & S2, no murmurs or gallops. No JVD. Pulse regular. Lungs:Normal breath sounds, no wheezes or crackles. Abdomen:Soft, non-tender, no rebound/guarding. No rigidity. No CVA tenderness Extremities:No deformity, no edema or tenderness, no joint swelling. Neurological:Normal cognition and motor skills. Skin:Normal color, no rash, no lesions. Pulses:Carotid and radial pulses normal +2. Rest of the physical exam is non-contributory Internal Med - H&P Results - Labs CBC & Chem 7: 09/26/17 20:14 09/26/17 20:14 - Assessment and plan (1) Complicated UTI (urinary tract infection) Current Visit: Yes Status: Acute Assessment and plan: Has partial obstruction on the left due to possible bladder mass and R hydronephrosis + hydroureter due to R ureteral calculus no evidence of pyelo previous urine culture grew Proteus sen to Rocephin, will continue follow up on urine culture Urology consulted and called in the ED (2) Bladder mass Current Visit: Yes Status: Acute Assessment and plan: Hx of uterine cancer s/p TAHBSO and radiation tx urology consult as above for possible cystoscopy NPO after midnight (3) Hydronephrosis Current Visit: Yes Status: Acute Assessment and plan: due to the above-mentioned causes to be followed up with possible cystoscopy tomorrow with Urology Qualifiers: Hydronephrosis type: other Qualified Code(s): N13.39 - Other hydronephrosis (4) Acute on chronic renal failure Current Visit: Yes Status: Acute Assessment and plan: with bilateral obstruction at the level of distal ureter and bladder still making urine continue IVF and monitor Cr Qualifiers: Acute renal failure type: unspecified Chronic kidney disease stage: stage 3 (moderate) Qualified Code(s): N17.9 - Acute kidney failure, unspecified; N18.3 - Chronic kidney disease, stage 3 (moderate) (5) Diabetes mellitus Current Visit: No Status: Chronic Assessment and plan: On Lantus 42 units daily at bedtime and humalog Patient will be NPO after midnight cut levemir to 22U tonight and cover with MDSS if necessary Qualifiers: Diabetes mellitus type: type 2 Diabetes mellitus residential insulin use: with extermination inspector use Diabetes mellitus complication status: with kidney complications Diabetes mellitus complication detail: with chronic kidney disease Chronic kidney disease stage: stage 4 (severe) Qualified Code(s): E11.22 - Type 2 diabetes mellitus with diabetic chronic kidney disease; N18.4 - Chronic kidney disease, stage 4 (severe); N18.4 - Chronic kidney disease, stage 4 (severe); N18.4 - Chronic kidney disease, stage 4 (severe); N18.4 - Chronic kidney disease, stage 4 (severe); Z79.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
[2017-09-27] MEDS: 0.9 % Sodium Chloride 1,000 ML IVC SCH ×2 (00:15→09:12)
[2017-09-27 04:48] LABS: Basophils # 0.1 K/mcL (0.0-0.2); Basophils % 1.1 %; Eosinophils # 0.1 K/mcL (0.0-0.6); Eosinophils % 2.3 %; Hematocrit 29.1 % (35.3-44.9); Hemoglobin 9.3 g/dL (11.5-15.4); Lymphocytes # 1.4 K/mcL (0.6-4.6); Mean Corpuscular Hemoglobin 30.3 pg (28.0-33.3); Mean Corpuscular Volume 94.8 fL (83.0-100.0); Mean Platelet Volume 13.6 fL (9.4-12.4); Monocytes # 0.6 K/mcL (0.0-1.3); Monocytes % 10.6 %; Neutrophils # 3.1 K/mcL (1.6-8.9); Platelet Count 109 K/mcL (140-400); Red Blood Count 3.07 M/mcL (3.82-4.97); Red Cell Distribution Width 15.9 % (11.5-14.5)
[2017-09-27 05:00] LABS: Calcium 8.7 mg/dL (8.6-10.3); Potassium 4.4 mEq/L (3.5-5.1)
[2017-09-27] MEDS: *HR* Heparin 5,000 UNIT/ML VIAL SQ SCH ×2 (05:30→21:17)
--- NOTE | 2017-09-27 08:38 | Urology - Consult Note ---
<Rebecca Rincon N - Last Filed: 09/27/17 08:34> Date of Encounter: 09/27/17 Time of Encounter: 08:34 - Assessment and Plan (1) Bladder mass Current Visit: Yes Status: Acute Assessment and plan: Patient is a 77-year-old female who presents with a bladder mass as revealed on CT scan in the emergency department. I discussed with the patient the risks and benefit of surgery, and ultimately she has elected to proceed with cystoscopy, resection and fulguration of bladder tumor, and left ureteral stent placement. The patient verbalizes understanding and consent has been signed with Dr. Harris. (2) Ureterolithiasis Current Visit: Yes Status: Acute Assessment and plan: Patient is a 77-year-old female who presents to the emergency department with an obstructing distal 4-5 mm right ureteral stone as well as a 1.6 cm nonobstructing right renal stone. I discussed the risks and benefits of surgery , and ultimately the patient has elected to proceed with a cystoscopy, right ureteroscopic stone extraction, laser lithotripsy with holmium laser and basket retrieval, and right ureteroscopic stent placement. The patient is aware we may not be able to retrieve the right renal stone at this time. The patient is also aware stone extraction may require more than one procedure. She verbalizes understanding and consent has been signed with Dr. Harris. Urology CN:HPI Consult date: 09/27/17 Reason for consult Urology: Other (right ureteral stone; left ureteral stricture ) History of present illness: Patient is a 77-year-old female who presented to the emergency department with left lower abdominal pain. The patient states the pain is colicky and has acutely worsened over the last several hours. The patient is known to us as she underwent ESWL lithotripsy in [address] Apodaca. The patient denies fever, chills, diaphoresis, difficulty voiding, hematuria or dysuria. Patient has a history of uterine cancer approximately 10 years ago, where she underwent multiple radiation treatments. CT scan of abdomen and pelvis reveals a 4-5 mm distal obstructing stone on the right with moderate hydronephrosis, and a non-onstructing right renal stone 1.6cm. CT also suggests hydronephrosis in the left kidney as well as left-sided bladder wall thickening and possible bladder tumor obstructing the distal left ureter. Past Med Surg Social Fam HX - Past Medical History Medical history: CHF, diabetes, hypertension, kidney stones Additional medical history: melanoma cancer s/p resection + cheom, uterine CA s/ p TAHBSO + radiation, kidney disease stage 3, psoriasis Psychiatric history: no psych history - Past Surgical History Surgical History: cancer surgery, hysterectomy, pacemaker/AICD Additional surgical history: back surgery - Social History Smoking Status: Former smoker Smokeless Tobacco Status: No Alcohol use: none Drug use: none - Family History Father Adopted: No Family Member Ethnicity: Non- Living Status: Hx Family Cardiac Disorders: Yes Hx Family Respiratory Disorders: No Hx Family Cancer: Yes (Colon) Hx Family GI Disorders: No Hx Family Endocrine Disorder: Yes Hx Family Neuromuscular Disorders: No Hx Family Neurologic Disorders: No Hx Family HEENT Disorders: No Hx Family Autoimmune Disorders: Yes Medications and Allergies Amitriptyline HCl 75 mg PO HS 05/03/17 [History] Ascorbic Acid [Vitamin C] 500 mg PO DAILY 05/03/17 [History] Aspirin Enteric Coated [Aspirin EC] 81 mg PO DAILY 05/03/17 [History] Carvedilol [Coreg] 25 mg PO BID 05/03/17 [History] Cinnamon Bark [Cinnamon] 500 mg PO DAILY 05/03/17 [History] Cranberry 500 mg PO DAILY 05/03/17 [History] Fenofibrate Nanocrystallized [Triglide] 160 mg PO DAILY 05/03/17 [History] Fiber Advance 1 tab PO TID 05/03/17 [History] Insulin ASPART [NovoLOG] 16 unit SQ 0800,1200 05/03/17 [History] Insulin ASPART [NovoLOG] 20 unit SQ 1700 05/03/17 [History] Insulin Glargine,Hum.rec.anlog [Lantus Solostar] 42 unit SQ DAILY 05/03/17 [ History] Ketoconazole 2% CRM [Nizoral Cream] 1 appl TP DAILY 05/03/17 [History] Lactobacillus [Culturelle] 1 each PO DAILY 05/03/17 [History] Loratadine [Claritin] 10 mg PO DAILY 05/03/17 [History] Multivitamin [One Daily Multivitamin] 1 each PO DAILY 05/03/17 [History] [place]-3/Dha/Epa/Fish Oil [Fish Oil 1,000 mg Softgel] 1,000 mg PO DAILY 05/03/17 [History] Potassium Gluconate 594 mg PO DAILY 05/03/17 [History] Pregabalin [Lyrica] 150 mg PO BID 05/03/17 [History] Tristanian Rivka 2 tab PO DAILY PRN 05/03/17 [History] Triamcinolone Acet 0.1% CRM [Kenalog] 1 appl TP DAILY 05/03/17 [History] Vitamin E Acid Succinate [Vitamin E] 400 unit PO DAILY 05/03/17 [History] hydrALAZINE [HydrALAZINE] 10 mg PO BID 05/03/17 [History] Nitrofurantoin (BID) [Macrobid] 100 mg PO DAILY 09/26/17 [History] Secukinumab [Cosentyx Pen] 300 mg SQ QMONTH 09/26/17 [History] 3 Allergy/AdvReac Type Severity Reaction Status Date / Time iodine Allergy Rash Verified 09/26/17 21:31 IVP DYE Allergy Rash Uncoded 09/26/17 19:57 Review of Systems - Constitutional as per HPI, no chills, no fatigue, no fever(s), no weakness - EENT Nose, mouth and throat: no dizziness, no headache(s) - Cardiovascular no chest pain, no dyspnea - Respiratory no cough, no dyspnea - Gastrointestinal abdominal pain, no change in bowel habits, no nausea, no vomiting - Genitourinary Genitourinary: no difficulty urinating, no dysuria, no flank pain, no hematuria , no urinary frequency, no urinary hesitancy, no urinary urgency - Musculoskeletal no back pain, no muscle weakness - Integumentary no rash, no swelling - Neurological no confusion, no weakness - Psychiatric no anxiety, no confusion Exam Initial Vital Signs Temp Pulse Resp BP Pulse Ox 99.3 F 105 16 158/80 94 09/26/17 19:58 09/26/17 19:58 09/26/17 19:58 09/26/17 19:58 09/26/17 19:58 - General physical appearance Present: well developed, no distress, no pain - Eyes Present: PERRL, normal ocular movement - ENT Present: normal nares, no hearing loss. Absent: nasal discharge - Neck Present: no masses, trachea midline - Respiratory Present: normal respiratory effort, clear to auscultation - Cardiovascular Cardiovascular exam IM: RRR - Abdomen Abdomen: Present: soft, non tender. Absent: distended - Genitourinary Present: other (no CVAT) - Integumentary Present: no rash, no abnormal pigmentation - Neurologic Present: normal coordination. Absent: disoriented - Musculoskeletal Present: other (no pedal edema ) Urology Results - Labs 09/27/17 04:21 09/27/17 04:21 Abnormal lab results RBC 3.07 M/mcL (3.82-4.97) L 09/27/17 04:21 Hgb 9.3 g/dL (11.5-15.4) L 09/27/17 04:21 Hct 29.1 % (35.3-44.9) L 09/27/17 04:21 RDW 15.9 % (11.5-14.5) H 09/27/17 04:21 Plt Count 109 K/mcL (140-400) L 09/27/17 04:21 MPV 13.6 fL (9.4-12.4) H 09/27/17 04:21 Chloride 108 mEq/L (98-107) H 09/27/17 04:21 Carbon Dioxide 22 mEq/L (23-29) L 09/27/17 04:21 BUN 52 mg/dL (8-23) H 09/27/17 04:21 Creatinine 2.27 mg/dL (0.60-1.20) H 09/27/17 04:21 Est GFR ( Amer) 25 (> 60) L 09/27/17 04:21 Est GFR (Non-Af Amer) 21 (> 60) L 09/27/17 04:21 Glucose 135 mg/dL (70-105) H 09/27/17 04:21 POC Glucose 195 mg/dL (70-99) H 09/26/17 23:19 Calculated Osmolality 302 (280-300) H 09/27/17 04:21 Ur Specimen Adequacy See below A 09/26/17 20:23 Urine Clarity Turbid (Clear) A 09/26/17 20:23 Urine Protein >=300 mg/dL (Neg-Trace) H 09/26/17 20:23 Urine Blood Moderate (Negative) H 09/26/17 20:23 Ur Leukocyte Esterase Large (Negative) H 09/26/17 20:23 Urine Microscopic WBC TNTC per hpf (0-3) H 09/26/17 20:23 Ur Culture Indicated? YES (NO) A 09/26/17 20:23 Diabetes panel 09/27/17 Range/Units 04:21 Sodium 138 (136-145) mEq/L Potassium 4.4 (3.5-5.1) mEq/L Chloride 108 H (98-107) mEq/L Carbon Dioxide 22 L (23-29) mEq/L BUN 52 H (8-23) mg/dL Creatinine 2.27 H (0.60-1.20) mg/dL Glucose 135 H (70-105) mg/dL Calcium 8.7 (8.6-10.3) mg/dL Calcium panel 09/27/17 Range/Units 04:21 Calcium 8.7 (8.6-10.3) mg/dL Pituitary panel 09/27/17 Range/Units 04:21 Sodium 138 (136-145) mEq/L Potassium 4.4 (3.5-5.1) mEq/L Chloride 108 H (98-107) mEq/L Carbon Dioxide 22 L (23-29) mEq/L BUN 52 H (8-23) mg/dL Creatinine 2.27 H (0.60-1.20) mg/dL Glucose 135 H (70-105) mg/dL Calcium 8.7 (8.6-10.3) mg/dL Adrenal panel 09/27/17 Range/Units 04:21 Sodium 138 (136-145) mEq/L Potassium 4.4 (3.5-5.1) mEq/L Chloride 108 H (98-107) mEq/L Carbon Dioxide 22 L (23-29) mEq/L BUN 52 H (8-23) mg/dL Creatinine 2.27 H (0.60-1.20) mg/dL Glucose 135 H (70-105) mg/dL Calcium 8.7 (8.6-10.3) mg/dL All other labs normal. - Imaging CT scan - abdomen: report reviewed, image reviewed CT scan - pelvis: report reviewed, image reviewed Consult Discharge Plan - Plan Referrals: Isidro Harris MD [Partnered Physician] - <Isidro Harris - Last Filed: 09/27/17 09:15> Date of Encounter: 09/27/17 Exam Initial Vital Signs Temp Pulse Resp BP Pulse Ox 99.3 F 105 16 158/80 94 09/26/17 19:58 09/26/17 19:58 09/26/17 19:58 09/26/17 19:58 09/26/17 19:58 Urology Results - Labs 09/27/17 04:21 09/27/17 04:21 Abnormal lab results RBC 3.07 M/mcL (3.82-4.97) L 09/27/17 04:21 Hgb 9.3 g/dL (11.5-15.4) L 09/27/17 04:21 Hct 29.1 % (35.3-44.9) L 09/27/17 04:21 RDW 15.9 % (11.5-14.5) H 09/27/17 04:21 Plt Count 109 K/mcL (140-400) L 09/27/17 04:21 MPV 13.6 fL (9.4-12.4) H 09/27/17 04:21 Chloride 108 mEq/L (98-107) H 09/27/17 04:21 Carbon Dioxide 22 mEq/L (23-29) L 09/27/17 04:21 BUN 52 mg/dL (8-23) H 09/27/17 04:21 Creatinine 2.27 mg/dL (0.60-1.20) H 09/27/17 04:21 Est GFR ( Amer) 25 (> 60) L 09/27/17 04:21 Est GFR (Non-Af Amer) 21 (> 60) L 09/27/17 04:21 Glucose 135 mg/dL (70-105) H 09/27/17 04:21 POC Glucose 195 mg/dL (70-99) H 09/26/17 23:19 Calculated Osmolality 302 (280-300) H 09/27/17 04:21 Ur Specimen Adequacy See below A 09/26/17 20:23 Urine Clarity Turbid (Clear) A 09/26/17 20:23 Urine Protein >=300 mg/dL (Neg-Trace) H 09/26/17 20:23 Urine Blood Moderate (Negative) H 09/26/17 20:23 Ur Leukocyte Esterase Large (Negative) H 09/26/17 20:23 Urine Microscopic WBC TNTC per hpf (0-3) H 09/26/17 20:23 Ur Culture Indicated? YES (NO) A 09/26/17 20:23 Diabetes panel 09/27/17 Range/Units 04:21 Sodium 138 (136-145) mEq/L Potassium 4.4 (3.5-5.1) mEq/L Chloride 108 H (98-107) mEq/L Carbon Dioxide 22 L (23-29) mEq/L BUN 52 H (8-23) mg/dL Creatinine 2.27 H (0.60-1.20) mg/dL Glucose 135 H (70-105) mg/dL Calcium 8.7 (8.6-10.3) mg/dL Calcium panel 09/27/17 Range/Units 04:21 Calcium 8.7 (8.6-10.3) mg/dL Pituitary panel 09/27/17 Range/Units 04:21 Sodium 138 (136-145) mEq/L Potassium 4.4 (3.5-5.1) mEq/L Chloride 108 H (98-107) mEq/L Carbon Dioxide 22 L (23-29) mEq/L BUN 52 H (8-23) mg/dL Creatinine 2.27 H (0.60-1.20) mg/dL Glucose 135 H (70-105) mg/dL Calcium 8.7 (8.6-10.3) mg/dL Adrenal panel 09/27/17 Range/Units 04:21 Sodium 138 (136-145) mEq/L Potassium 4.4 (3.5-5.1) mEq/L Chloride 108 H (98-107) mEq/L Carbon Dioxide 22 L (23-29) mEq/L BUN 52 H (8-23) mg/dL Creatinine 2.27 H (0.60-1.20) mg/dL Glucose 135 H (70-105) mg/dL Calcium 8.7 (8.6-10.3) mg/dL All other labs normal. - Attending Attestation Patient seen and examined with the physician's community program assistant. Briefly she is a 77- year-old woman with a history of nephrolithiasis, uterine cancer, status post hysterectomy with radiation therapy. She has obstructing right distal ureteral stone as well as a right renal stone. She has new onset left hydronephrosis. Recommend proceeding with a cystoscopy, possible bladder biopsy, right ureteroscopic stone extraction with stent placement and possible left ureteroscopy with left ureteral stent placement. She was informed of the risks of the procedure including but not limited to bleeding, infection, injury to other structures, need for further procedures, stent irritation, incomplete fragmentation, ureteral perforation, need for nephrostomy tube, need for open repair, risks unforeseen, and the risk of anesthesia. She is willing to proceed.
[2017-09-27] MEDS ORDERED: Ketoconazole 2% CRM 15 GM TUBE TP SCH (09:00)
[2017-09-27] MEDS ORDERED: Multivit/Ca/Min/Fe/FA 1 TAB TABLET PO SCH (09:00)
[2017-09-27] MEDS ORDERED: Aspirin Enteric Coated 81 MG Tablet PO SCH (09:00)
[2017-09-27] MEDS ORDERED: Triamcinolone Acet 0.1% CRM 15 GM TUBE TP SCH (09:00)
[2017-09-27] MEDS ORDERED: Ascorbic Acid 500 MG TABLET PO SCH (09:00)
[2017-09-27] MEDS ORDERED: Fenofibrate 54 MG TABLET PO SCH (09:00)
[2017-09-27] MEDS ORDERED: hydrALAZINE 10 MG TABLET PO SCH (09:00)
[2017-09-27] MEDS ORDERED: Pregabalin 75 MG CAPSULE PO SCH (09:00)
[2017-09-27] MEDS ORDERED: Lactobacillus 1 EACH CAP.SPRINK PO SCH (09:00)
[2017-09-27] MEDS ORDERED: Loratadine 10 MG TABLET PO SCH (09:00)
--- NOTE | 2017-09-27 14:33 | Anesthesia Evaluation PreOp ---
Date of Encounter: 09/27/17 Time of Encounter: 16:14 - Past History Planned Operation: Right Ureteroscopic Stone Extraction Cardiac History: OK, CHF, HTN, Arrhythmia, Pacemaker/ICD (pacemaker/AICD for chemo induced cardiomyopathy, LVEF=60% by echo 10/26/2016) Pulmonary History: Denies Any Significant HX BEAUTY ARTIST History: Denies Any Significant HX Other Medical History: Renal, Diabetes Type II Anesthesia History: No Prior Anesthetic Complications, Past Anesthesia Alcohol Use: none Drug use: none Medications and Allergies Amitriptyline HCl 75 mg PO HS 05/03/17 [History] Ascorbic Acid [Vitamin C] 500 mg PO DAILY 05/03/17 [History] Aspirin Enteric Coated [Aspirin EC] 81 mg PO DAILY 05/03/17 [History] Carvedilol [Coreg] 25 mg PO BID 05/03/17 [History] Cinnamon Bark [Cinnamon] 500 mg PO DAILY 05/03/17 [History] Cranberry 500 mg PO DAILY 05/03/17 [History] Fenofibrate Nanocrystallized [Triglide] 160 mg PO DAILY 05/03/17 [History] Fiber Advance 1 tab PO TID 05/03/17 [History] Insulin ASPART [NovoLOG] 16 unit SQ 0800,1200 05/03/17 [History] Insulin ASPART [NovoLOG] 20 unit SQ 1700 05/03/17 [History] Insulin Glargine,Hum.rec.anlog [Lantus Solostar] 42 unit SQ DAILY 05/03/17 [ History] Ketoconazole 2% CRM [Nizoral Cream] 1 appl TP DAILY 05/03/17 [History] Lactobacillus [Culturelle] 1 each PO DAILY 05/03/17 [History] Loratadine [Claritin] 10 mg PO DAILY 05/03/17 [History] Multivitamin [One Daily Multivitamin] 1 each PO DAILY 05/03/17 [History] [place]-3/Dha/Epa/Fish Oil [Fish Oil 1,000 mg Softgel] 1,000 mg PO DAILY 05/03/17 [History] Potassium Gluconate 594 mg PO DAILY 05/03/17 [History] Pregabalin [Lyrica] 150 mg PO BID 05/03/17 [History] [place] Rivka 2 tab PO DAILY PRN 05/03/17 [History] Triamcinolone Acet 0.1% CRM [Kenalog] 1 appl TP DAILY 05/03/17 [History] Vitamin E Acid Succinate [Vitamin E] 400 unit PO DAILY 05/03/17 [History] hydrALAZINE [HydrALAZINE] 10 mg PO BID 05/03/17 [History] Nitrofurantoin (BID) [Macrobid] 100 mg PO DAILY 09/26/17 [History] Secukinumab [Cosentyx Pen] 300 mg SQ QMONTH 09/26/17 [History] 3 Allergy/AdvReac Type Severity Reaction Status Date / Time iodine Allergy Rash Verified 09/26/17 21:31 IVP DYE Allergy Rash Uncoded 09/26/17 19:57 - Meds/Allergy Pre-op Review Medications Reviewed: Yes Allergies Reviewed: Yes Beta Blockers on Current Med List: Yes If Beta Blockers taken, Date/Time (Last Dose taken): 09/27/2017 at 0907 Anesthesia Results - Labs 09/27/17 04:21 09/27/17 04:21 - Imaging EKG: report reviewed (10/26/2016 ELECTRONIC VENTRICULAR PACEMAKER ABNORMAL RHYTHM ECG) Additional studies: 10/26/2016 Limited Echo Impressions: LVEF 60%. Normal LV chamber size, wall thickness and function. Atypical septal motion consistent with paced rhythm. Echo Impressions: LVEF 55-60%. Normal LV chamber size, wall thickness and function. Atypical septal motion consistent with paced rhythm. Mild left ventricular diastolic dysfunction. Normal right ventricular structure and function. No significant valvular dysfunction. No evidence of pulmonary hypertension. A device lead was visualized in the right atrium and right ventricle. Anesthesia Exam Vital Signs/O2 Sat/Glucose, Most Recent Temp Pulse Resp BP Pulse Ox 98.3 F 63 14 126/66 94 09/27/17 11:23 09/27/17 11:23 09/27/17 11:23 09/27/17 11:23 09/27/17 11:23 Blood Glucose* 198 Height: 5'2''/1.57m Weight: 197 lbs/89.4 kg NPO (# of Hours): 8 Pain Scale: 0 Pain Scale Used: Numeric (1 - 10) - HEENT Pupil (Motor): EOMI Mallampati: II Teeth: Normal, Missing Denture Type: Upper: Complete, Lower: Partial Oral Opening: Greater than 3 - BEAUTY ARTIST LOC: Oriented BEAUTY ARTIST Motor: Normal RUE, Normal LUE, Normal RLE, Normal LLE, Normal Face BEAUTY ARTIST Sensory: Normal: RUE, LUE, Face, Deficit: RLE, LLE - Cardiac Rhythm: Regular Murmur: None - Pulmonary Breath Sounds: bilateral Clear Respiratory Effort: Symmetrical Anesthesia Assess/Plan ASA Score: 3 Modified [place] Scale for Level of Consciousness: Cooperative, oriented, and tranquil Anesthetic Plan: General Monitoring Plan: Standard Monitors Recovery Plan: PACU
--- NOTE | 2017-09-27 15:59 | Internal Med Progress Note ---
Hospitalist Progress Note - Encounter Date of Encounter: 09/27/17 Time of Encounter: 08:10 - Subjective Interval History: Patient feels much better today but continues to have some dysuria and left lower quadrant abdominal pain. No fever or chills reported overnight. No nausea or vomiting. Awaiting planned procedure later today. - Exam Vitals: Temp Pulse Resp BP Pulse Ox 98.2 F 70 15 157/76 94 09/27/17 14:53 09/27/17 14:53 09/27/17 14:53 09/27/17 14:53 09/27/17 14:53 Exam: General: Patient is alert, no acute distress, oriented x 3 Head: atraumatic, normocephalic,n ENT: mucous membranes moist, normal external ear exam Neck: normal inspection, trachea midline, full ROM, no carotid bruits Chest: normal inspection, symmetric chest rise Respiratory: Good respiratory effort. Normal breath sounds. No wheezing or crackles.. Cardiovascular: Regular rate and rhythm. s1 and s2 No clicks, rubs, gallops, or murmurs. No pedal edema Abdomen: Abdomen is soft, nontender. Bowel sounds are present Musculoskeletal: Spontaneously moving all extremities. Skin: warm, dry, intact. Neuro: Alert oriented x 3 normal cranial nerves, no focal deficits Psych: Patient's affect is normal - Assessment and Plan (1) Complicated UTI (urinary tract infection) Current Visit: Yes Status: Acute Assessment and Plan: On IV antibiotics. Follow urology recommendations. Follow culture results. (2) Hydronephrosis Current Visit: Yes Status: Acute Assessment and Plan: Due to obstruction related to ureteral calculus and possible bladder mass/scar tissue. Patient having good urine output. Awaiting urology procedure. (3) Diabetes mellitus Current Visit: Yes Status: Chronic Assessment and Plan: Monitor blood sugars. Adjust insulin regimen accordingly. Patient is on Levemir and sliding scale insulin. (4) DVT prophylaxis Current Visit: Yes Status: Acute Assessment and Plan: On subcutaneous heparin (5) Bladder mass Current Visit: Yes Status: Acute Assessment and Plan: Plan cystoscopy and biopsy later today. Could be related to scar tissue from her prior radiation and surgery. Urology following. (6) Acute on chronic renal failure Current Visit: Yes Status: Acute Assessment and Plan: Creatinine 2.27 today. Patient does have chronic kidney disease stage III. We will monitor renal function closely. DVT Prophylaxis: On subcutaneous heparin - Time Spent with Patient Total time spent is greater than 50% in coordination of care (as documented) at patient's floor/unit and/or counseling patient: Plan of Care Discussed with: patient Internal Medicine: Result - Labs CBC & Chem 7: 09/27/17 04:21 09/27/17 04:21 Labs: Short CBC 09/27/17 Range/Units 04:21 WBC 5.3 (4.3-11.1) K/mcL Hgb 9.3 L (11.5-15.4) g/dL Hct 29.1 L (35.3-44.9) % Plt Count 109 L (140-400) K/mcL Neutrophils # 3.1 (1.6-8.9) K/mcL BMP 09/27/17 04:21 Sodium 138 Potassium 4.4 Chloride 108 H Carbon Dioxide 22 L BUN 52 H Creatinine 2.27 H Glucose 135 H Calcium 8.7 Consult Discharge Plan - Plan Referrals: Isidro Harris MD [Partnered Physician] - (2) Hydronephrosis Qualifiers: Hydronephrosis type: other Qualified Code(s): N13.39 - Other hydronephrosis (3) Diabetes mellitus Qualifiers: Diabetes mellitus type: type 2 Diabetes mellitus long term care pharmacist insulin use: with detention use Diabetes mellitus complication status: with kidney complications Diabetes mellitus complication detail: with chronic kidney disease Chronic kidney disease stage: stage 4 (severe) Qualified Code(s): E11.22 - Type 2 diabetes mellitus with diabetic chronic kidney disease; N18.4 - Chronic kidney disease, stage 4 (severe); N18.4 - Chronic kidney disease, stage 4 (severe); N18.4 - Chronic kidney disease, stage 4 (severe); N18.4 - Chronic kidney disease , stage 4 (severe); Z79.4 - [facility] (current) use of insulin; Z79.4 - [facility] (current) use of insulin; Z79.4 - [facility] (current) use of insulin; Z79.4 - [facility] (current) use of insulin (6) Acute on chronic renal failure Qualifiers: Acute renal failure type: unspecified Chronic kidney disease stage: stage 3 ( moderate) Qualified Code(s): N17.9 - Acute kidney failure, unspecified; N18.3 - Chronic kidney disease, stage 3 (moderate)
[2017-09-27] MEDS ORDERED: *HR* FentaNYL (PF) 100 MCG/2 ML VIAL ONE (16:12)
[2017-09-27] MEDS ORDERED: Ondansetron 4 MG/2 ML VIAL ONE (16:12)
[2017-09-27] MEDS ORDERED: Lidocaine -MPF 2% 2 ML VIAL ONE (16:12)
[2017-09-27] MEDS ORDERED: Dexamethasone 4 MG/ML VIAL ONE (16:12)
[2017-09-27] MEDS ORDERED: *HR* Propofol 200 MG/20 ML VIAL IVP ONE (16:12)
[2017-09-27] MEDS ORDERED: Isovue-300 50 ML VIAL IVP ONE (16:16)
[2017-09-27] MEDS ORDERED: *HR* Cisatracurium 10 MG/5 ML VIAL IV ONE (16:21)
[2017-09-27] MEDS ORDERED: *HR* Etomidate 40 MG/20 ML VIAL IVP ONE (16:38)
[2017-09-27] MEDS ORDERED: Neostigmine Methylsulfate 3 MG/3 ML SYRINGE ONE (17:16)
--- NOTE | 2017-09-27 17:32 | Operative Note ---
Date of procedure: 09/27/17 Pre-op diagnosis: Right ureteral stone, left hydronephrosis Post-op diagnosis: same Procedure: Right ureteroscopy, laser lithotripsy, basket stone extraction, and right ureteral stent placement. Diagnostic left ureteroscopy, stent placement Implants: Bilateral 6-[place] by 24 cm double-J stents. Zuniga catheter. Complications: None Anesthesia: CHRISTOPHER Surgeon: Isidro Harris Was there an clinical trials assistant present: No Estimated blood loss (cc): 1 Specimen: right ureteral stone Condition: stable Disposition: PACU Procedure in Detail: Indications: Sammi is a 77-year-old woman who has a history of left flank pain. She appears he had a right shockwave lithotripsy. A CT scan showed a distal right ureteral stone. In addition there was left hydronephrosis. She has a history of uterine cancer and is status post hysterectomy with radiation therapy. She elected undergo a right ureteroscopy, laser lithotripsy, basket stone extraction , and ureteral stent placement along with a left ureteroscopy, possible biopsy, possible stent placement, and possible bladder biopsy. She is aware of the risks of the procedure including but not limited to bleeding, infection, injury to other structures, need for further procedures, need for stent, stent irritation, need for nephrostomy tube, incomplete treatment, need for open repair, risks unforeseen, and the risk of anesthesia. She is willing to proceed. Procedure: After informed consent was obtained the patient was brought back to the operating room and placed in supine position. A time out was performed. General anesthesia was administered. She was then placed in the lithotomy position. She was prepped and draped in the usual sterile fashion. Cystoscopy was performed. The anterior urethra was normal. There was no evidence of bladder tumors. There was purulent urine noted. The bladder was irrigated to remove the purulent fluid. The ureteral orifices were in the normal orthotopic position. The right ureteral orifice appeared patent. The left ureteral orifice did not appear patent but had some necrotic material obstructing it. The Sensor wire was placed in the right ureteral orifice and brought into the kidney under fluoroscopic guidance. The right ureteral orifice was dilated with the 8/10- [place] renal dilator. I then advanced the semirigid ureteroscope into the ureter. The stone was fragmented using the 200 micron fiber. The stone fragments were basket extracted. A 6 [place] by 24cm JJ stent was then placed with good curl seen in the kidney and the bladder. The dangle string was removed. Attention was turned to the left side. A sensor wire was placed up the left ureteral orifice. The left ureteral orifice had some necrotic debris within it. The dual-lumen catheter was placed in the left ureteral orifice. A retrograde Polygram was performed. There was hydroureteronephrosis and a tortuous left proximal ureter which extended down to the left ureterovesical junction. After the dual-lumen catheter was removed I placed the semirigid ureteroscope. The left ureter orifice was now wide open. I was able to easily pass the scope into the distal ureter. There is no evidence of further stricture or tumor noted. The scope was removed. A 6-British by 24 cm double-J stent was then placed with a good curl seen within the kidney and the bladder. The dangle string was removed. A Zuniga catheter was placed. The patient was then awakened from general anesthesia and brought to recovery room in good condition. All sponge, needle, and instrument counts were correct.
--- NOTE | 2017-09-27 18:07 | Anesthesia Evaluation Post Op ---
Date of Encounter: 09/27/17 Time of Encounter: 18:06 - Vital Signs Vital Signs: Vital Signs/O2 Sat/Glucose, Most Recent Temp Pulse Resp BP Pulse Ox 99 F 73 14 159/80 98 09/27/17 18:04 09/27/17 18:04 09/27/17 18:04 09/27/17 18:04 09/27/17 18:04 Blood Glucose* 135 - Lungs Lungs: Clear Ascult./Percussion - Airway Airway: Non-obstructed - Cardiovascular Regular Rate - Mental Status Mental Status: Alert & Oriented, Answers Appropriately - Pain Pain Scale: 0 Pain Scale used: Numeric (1 - 10) - Nausea Vomiting Nausea Vomiting: Not Present - Hydration Hydration: Ice chips, Has not voided - Discharge PostOp Status: Transfer Patient to floor
[2017-09-27] MEDS ORDERED: *HR* Dextrose 50 % in Water (Syg) 50 ML SYRINGE IVP PRN (18:47)
[2017-09-27] MEDS ORDERED: Naloxone 0.4 MG/ML INJ IVP PRN (18:47)
[2017-09-27] MEDS ORDERED: Dextrose Gel 15 GM/37.5 ML TUBE PO PRN ×2 (18:47)
[2017-09-27] MEDS ORDERED: D5% in Water 1,000 ML IVC PRN (18:47)
[2017-09-27] MEDS ORDERED: MICONAZOLE NITRATE 57 GM TUBE TP SCH (21:00)
[2017-09-27] MEDS ORDERED: Insulin LISPRO 300 UNITS/3 ML VIAL SQ SCH (21:00)
[2017-09-27] MEDS ORDERED: Insulin DETEMIR 100 UNIT/ML X5UNITS SQ SCH (21:00)
[2017-09-27] MEDS ORDERED: cefTRIAXone 1,000 MG in Water for inj. (sterile) 20 ML 10 ML IVP SCH (21:00)
[2017-09-27] MEDS: Insulin LISPRO 300 UNITS/3 ML VIAL SQ SCH ×3 (21:16→21:52)
[2017-09-27] MEDS: Pregabalin 75 MG CAPSULE PO SCH (21:51)
[2017-09-27] MEDS: cefTRIAXone 1,000 MG in Water for inj. (sterile) 20 ML 10 ML IVP SCH (21:51)
[2017-09-27] MEDS: MICONAZOLE NITRATE 57 GM TUBE TP SCH (21:52)
[2017-09-27] MEDS: hydrALAZINE 10 MG TABLET PO SCH (21:52)
[2017-09-27] MEDS: Insulin DETEMIR 100 UNIT/ML X5UNITS SQ SCH (21:53)
[2017-09-27] MEDS: Acetaminophen 325 MG TABLET PO PRN (22:01)
[2017-09-28] MEDS: *HR* Heparin 5,000 UNIT/ML VIAL SQ SCH ×2 (05:42→17:40)
[2017-09-28 06:43] LABS: Basophils # 0.1 K/mcL (0.0-0.2); Basophils % 0.9 %; Eosinophils # 0.1 K/mcL (0.0-0.6); Eosinophils % 1.3 %; Hematocrit 31.6 % (35.3-44.9); Hemoglobin 9.7 g/dL (11.5-15.4); Immature Granulocytes % 0.9 % (0-4); Lymphocytes # 0.5 K/mcL (0.6-4.6); Lymphocytes % 6.6 %; Mean Corpuscular HGB Conc 30.7 g/dL (31.6-35.5); Mean Corpuscular Hemoglobin 28.9 pg (28.0-33.3); Mean Platelet Volume 13.4 fL (9.4-12.4); Monocytes # 0.5 K/mcL (0.0-1.3); Monocytes % 5.9 %; Neutrophils # 6.9 K/mcL (1.6-8.9); Platelet Count 105 K/mcL (140-400); Red Blood Count 3.36 M/mcL (3.82-4.97); Red Cell Distribution Width 15.9 % (11.5-14.5); Segmented Neutrophils % 84.4 %
[2017-09-28 06:59] LABS: Calcium 8.8 mg/dL (8.6-10.3); Potassium 5.2 mEq/L (3.5-5.1)
--- NOTE | 2017-09-28 08:27 | Urology Progress Note ---
Date of Encounter: 09/28/17 Time of Encounter: 08:24 - Assessment and Plan (1) Ureterolithiasis Current Visit: Yes Status: Acute Assessment and plan: Patient is a 77-year-old female one day status post Right ureteroscopy, laser lithotripsy, basket stone extraction, and right ureteral stent placement, diagnostic left ureteroscopy, stent placement. Patient has remained febrile throughout the night with TMAX being 103.2. During the procedure, it was noted that the patient had purulent urine. Urine culture on 09/26/17 negative. Patient has recurrent history of positive culture UTI. Patient underwent Rocephin infusion prior to surgery. Will discuss management with Dr. Harris. Progress Note Subjective: feels better, pain is less, fever Narrative: Patient is a 77-year-old female who is one day status post Right ureteroscopy, laser lithotripsy, basket stone extraction, and right ureteral stent placement, Diagnostic left ureteroscopy, stent placement. Patient was seen and examined sitting upright in bed in no apparent distress. Patient has sustained a fever overnight with MAXIMUM TEMPERATURE being 103.2 Fahrenheit. Patient states she is fatigued and diaphoretic as her fever appears to be resolving. Patient states her pain is well-controlled. She has not been up to ambulate yet. She has been unable to tolerate a normal diet. Patient has indwelling urethral catheter draining sufficiently at bedside. Objective Initial Vital Signs Temp Pulse Resp BP Pulse Ox 99.3 F 105 16 158/80 94 09/26/17 19:58 09/26/17 19:58 09/26/17 19:58 09/26/17 19:58 09/26/17 19:58 - General physical appearance Present: well developed, no distress - Respiratory Present: normal expansion, normal respiratory effort - Abdomen Present: soft, non tender - Genitourinary Present: normal external genitalia Urine Appearance: Present: Cloudy, Sediment, Hematuria - Integumentary Present: no rash, no abnormal pigmentation - Musculoskeletal Present: normal posture, other (EPCD in place bilateral lower legs ) - Psychiatric Present: oriented to time, oriented to person, oriented to place, speech is normal - Labs 09/28/17 05:38 09/28/17 05:38 Diabetes panel 09/28/17 Range/Units 05:38 Sodium 138 (136-145) mEq/L Potassium 5.2 H (3.5-5.1) mEq/L Chloride 108 H (98-107) mEq/L Carbon Dioxide 20 L (23-29) mEq/L BUN 48 H (8-23) mg/dL Creatinine 2.24 H (0.60-1.20) mg/dL Glucose 144 H (70-105) mg/dL Calcium 8.8 (8.6-10.3) mg/dL Calcium panel 09/28/17 Range/Units 05:38 Calcium 8.8 (8.6-10.3) mg/dL Pituitary panel 09/28/17 Range/Units 05:38 Sodium 138 (136-145) mEq/L Potassium 5.2 H (3.5-5.1) mEq/L Chloride 108 H (98-107) mEq/L Carbon Dioxide 20 L (23-29) mEq/L BUN 48 H (8-23) mg/dL Creatinine 2.24 H (0.60-1.20) mg/dL Glucose 144 H (70-105) mg/dL Calcium 8.8 (8.6-10.3) mg/dL Adrenal panel 09/28/17 Range/Units 05:38 Sodium 138 (136-145) mEq/L Potassium 5.2 H (3.5-5.1) mEq/L Chloride 108 H (98-107) mEq/L Carbon Dioxide 20 L (23-29) mEq/L BUN 48 H (8-23) mg/dL Creatinine 2.24 H (0.60-1.20) mg/dL Glucose 144 H (70-105) mg/dL Calcium 8.8 (8.6-10.3) mg/dL - VTE Documentation of Mechanical Device: Intermittent pneumatic compression device Consult Discharge Plan - Plan Referrals: Isidro Harris MD [Partnered Physician] -
[2017-09-28] MEDS: Aspirin Enteric Coated 81 MG Tablet PO SCH (09:03)
[2017-09-28] MEDS: Acetaminophen 325 MG TABLET PO PRN ×2 (09:03→19:40)
[2017-09-28] MEDS: Fenofibrate 54 MG TABLET PO SCH (09:03)
[2017-09-28] MEDS: Pregabalin 75 MG CAPSULE PO SCH ×2 (09:04→21:40)
[2017-09-28] MEDS: Ascorbic Acid 500 MG TABLET PO SCH (09:04)
[2017-09-28] MEDS: hydrALAZINE 10 MG TABLET PO SCH ×2 (09:04→21:40)
[2017-09-28] MEDS: Multivit/Ca/Min/Fe/FA 1 TAB TABLET PO SCH (09:04)
[2017-09-28] MEDS: Lactobacillus 1 EACH CAP.SPRINK PO SCH (09:04)
[2017-09-28] MEDS: Insulin LISPRO 300 UNITS/3 ML VIAL SQ SCH ×4 (09:05→21:41)
[2017-09-28] MEDS: Loratadine 10 MG TABLET PO SCH (09:05)
[2017-09-28] MEDS: MICONAZOLE NITRATE 57 GM TUBE TP SCH ×2 (09:06→21:41)
[2017-09-28] MEDS: Triamcinolone Acet 0.1% CRM 15 GM TUBE TP SCH (09:07)
[2017-09-28] MEDS: Ketoconazole 2% CRM 15 GM TUBE TP SCH (09:08)
--- NOTE | 2017-09-28 12:51 | Internal Med Progress Note ---
Hospitalist Progress Note - Encounter Date of Encounter: 09/28/17 Time of Encounter: 08:35 - Subjective Interval History: Patient is feeling better today. However she has been having high-grade fever since last night. Temperature this morning was 103.1. She denies any dysuria or abdominal pain. She does have hematuria. No nausea or vomiting. - Exam Vitals: Temp Pulse Resp BP Pulse Ox 99.5 F 67 15 104/52 93 09/28/17 12:22 09/28/17 12:22 09/28/17 12:22 09/28/17 12:22 09/28/17 12:22 Exam: General: Patient is alert, no acute distress, oriented x 3 Head: atraumatic, normocephalic, ENT: mucous membranes moist, normal external ear exam Neck: normal inspection, trachea midline, full ROM, no carotid bruits Chest: normal inspection, symmetric chest rise Respiratory: Good respiratory effort. Normal breath sounds. No wheezing or crackles.. Cardiovascular: Regular rate and rhythm. s1 and s2 No clicks, rubs, gallops, or murmurs. No pedal edema Abdomen: Abdomen is soft, nontender. Bowel sounds are present. Zuniga catheter in place. Musculoskeletal: Spontaneously moving all extremities. Skin: warm, dry, intact. Neuro: Alert oriented x 3 normal cranial nerves, no focal deficits Psych: Patient's affect is normal - Assessment and Plan (1) Complicated UTI (urinary tract infection) Current Visit: Yes Status: Acute Assessment and Plan: Patient continues to have fever. Treat symptomatically while we await cultures. WBC count remains normal. Will not change antibiotics at this time. However if fever persists or leukocytosis worsens, we will broaden antibiotics coverage. Follow culture results. (2) Hydronephrosis Current Visit: Yes Status: Acute Assessment and Plan: Status post [id number], laser lithotripsy, basket stone extraction and right ureteral stone placement along with diagnostic left ureteroscopy and stent placement. Postop day 1.. Urology is following. Creatinine trending down. Patient having good urine output. (3) Diabetes mellitus Current Visit: Yes Status: Chronic Assessment and Plan: Blood sugars are elevated today. We will increase his insulin regimen (4) Bladder mass Current Visit: Yes Status: Acute Assessment and Plan: Status post urethroscopy. Urology following. (5) Acute on chronic renal failure Current Visit: Yes Status: Acute Assessment and Plan: Creatinine is improving. 2.24 today. She does have mild hyperkalemia with potassium of 5.2. Will monitor for now. Patient is not on any potassium supplements. (6) DVT prophylaxis Current Visit: Yes Status: Acute DVT Prophylaxis: On subcutaneous heparin - Time Spent with Patient Total time spent is greater than 50% in coordination of care (as documented) at patient's floor/unit and/or counseling patient: Plan of Care Discussed with: patient Internal Medicine: Result - Labs CBC & Chem 7: 09/28/17 05:38 09/28/17 05:38 Labs: Short CBC 09/28/17 Range/Units 05:38 WBC 8.2 D (4.3-11.1) K/mcL Hgb 9.7 L (11.5-15.4) g/dL Hct 31.6 L (35.3-44.9) % Plt Count 105 L (140-400) K/mcL Neutrophils # 6.9 (1.6-8.9) K/mcL BMP 09/28/17 05:38 Sodium 138 Potassium 5.2 H Chloride 108 H Carbon Dioxide 20 L BUN 48 H Creatinine 2.24 H Glucose 144 H Calcium 8.8 - Impressions Impressions Retrograde Pyelogram 09/27/17 16:45 IMPRESSION: Intraprocedural fluoroscopic spot images as above. See separate procedure report for more information. D/ / Eleno Navarro MD / Eleno Navarro MD Interpreting Provider: Eleno Navarro MD - VTE Documentation of Mechanical Device: Intermittent pneumatic compression device Consult Discharge Plan - Plan Referrals: Isidro Harris MD [Partnered Physician] - (2) Hydronephrosis Qualifiers: Hydronephrosis type: other Qualified Code(s): N13.39 - Other hydronephrosis (3) Diabetes mellitus Qualifiers: Diabetes mellitus type: type 2 Diabetes mellitus termite control representative insulin use: with custodial use Diabetes mellitus complication status: with kidney complications Diabetes mellitus complication detail: with chronic kidney disease Chronic kidney disease stage: stage 4 (severe) Qualified Code(s): E11.22 - Type 2 diabetes mellitus with diabetic chronic kidney disease; N18.4 - Chronic kidney disease, stage 4 (severe); N18.4 - Chronic kidney disease, stage 4 (severe); N18.4 - Chronic kidney disease, stage 4 (severe); N18.4 - Chronic kidney disease , stage 4 (severe); Z79.4 - joint terminal attack controller (current) use of insulin; Z79.4 - joint terminal attack controller (current) use of insulin; Z79.4 - joint terminal attack controller (current) use of insulin; Z79.4 - half-way (current) use of insulin (5) Acute on chronic renal failure Qualifiers: Acute renal failure type: unspecified Chronic kidney disease stage: stage 3 ( moderate) Qualified Code(s): N17.9 - Acute kidney failure, unspecified; N18.3 - Chronic kidney disease, stage 3 (moderate)
[2017-09-28] MEDS: cefTRIAXone 1,000 MG in Water for inj. (sterile) 20 ML 10 ML IVP SCH (21:40)
[2017-09-28] MEDS: Insulin DETEMIR 100 UNIT/ML X5UNITS SQ SCH (21:41)
[2017-09-28] MEDS: *HR* HYDROcodone/Acet 5/325 mg TABLET PO PRN (23:56)
[2017-09-29] MEDS: *HR* Heparin 5,000 UNIT/ML VIAL SQ SCH (05:17)
[2017-09-29 06:27] LABS: Basophils % 0.5 %
[2017-09-29 06:30] LABS: Eosinophils # 0.1 K/mcL (0.0-0.6); Eosinophils % 1.9 %; Hematocrit 26.9 % (35.3-44.9); Hemoglobin 8.6 g/dL (11.5-15.4); Immature Granulocytes % 1.4 % (0-4); Immature Platelets 14.3 % (1.1-6.1); Lymphocytes # 0.7 K/mcL (0.6-4.6); Lymphocytes % 15.6 %; Mean Corpuscular Hemoglobin 29.5 pg (28.0-33.3); Mean Corpuscular Volume 92.1 fL (83.0-100.0); Mean Platelet Volume 13.6 fL (9.4-12.4); Monocytes # 0.3 K/mcL (0.0-1.3); Monocytes % 6.7 %; Neutrophils # 3.1 K/mcL (1.6-8.9); Red Blood Count 2.92 M/mcL (3.82-4.97); Red Cell Distribution Width 15.7 % (11.5-14.5); Segmented Neutrophils % 73.9 %
[2017-09-29 06:34] LABS: Platelet Count 89 K/mcL (140-400)
[2017-09-29 06:48] LABS: Calcium 8.5 mg/dL (8.6-10.3); Potassium 4.4 mEq/L (3.5-5.1)
[2017-09-29] MEDS: Aspirin Enteric Coated 81 MG Tablet PO SCH (09:54)
[2017-09-29] MEDS: MICONAZOLE NITRATE 57 GM TUBE TP SCH ×2 (09:55→21:31)
[2017-09-29] MEDS: Pregabalin 75 MG CAPSULE PO SCH ×2 (09:56→21:29)
[2017-09-29] MEDS: Lactobacillus 1 EACH CAP.SPRINK PO SCH (09:56)
[2017-09-29] MEDS: Fenofibrate 54 MG TABLET PO SCH (09:56)
[2017-09-29] MEDS: hydrALAZINE 10 MG TABLET PO SCH ×2 (09:57→21:30)
[2017-09-29] MEDS: Ketoconazole 2% CRM 15 GM TUBE TP SCH (09:57)
[2017-09-29] MEDS: Ascorbic Acid 500 MG TABLET PO SCH (09:57)
[2017-09-29] MEDS: Triamcinolone Acet 0.1% CRM 15 GM TUBE TP SCH (09:57)
[2017-09-29] MEDS: Insulin LISPRO 300 UNITS/3 ML VIAL SQ SCH ×4 (09:57→21:32)
[2017-09-29] MEDS: Loratadine 10 MG TABLET PO SCH (09:57)
[2017-09-29] MEDS: Multivit/Ca/Min/Fe/FA 1 TAB TABLET PO SCH (09:57)
--- NOTE | 2017-09-29 10:07 | Urology Progress Note ---
Date of Encounter: 09/29/17 Time of Encounter: 10:06 - Assessment and Plan (1) Hydronephrosis Current Visit: Yes Status: Acute Assessment and plan: I will replace her catheter. She has bilateral indwelling stents. Continue catheter upon discharge. She can follow up with Dr. Apodaca for stent removal and voiding trial. Qualifiers: Hydronephrosis type: other Qualified Code(s): N13.39 - Other hydronephrosis (2) Ureterolithiasis Current Visit: Yes Status: Acute (3) Complicated UTI (urinary tract infection) Current Visit: Yes Status: Acute Assessment and plan: Febrile yesterday. Continue Rocephin. Her urine culture was ultimately negative. We will see how she does clinically. So long as the Rocephin is successful in managing her fever, we will eventually billow transition to oral antibiotic. Progress Note Narrative: 77-year-old woman with history of right ureteral stone and left hydronephrosis is seen in follow-up. She has bilateral stents in place. I removed her Zuniga catheter yesterday, but her creatinine elevated. I had the nurse replace her catheter today. She did have a fever last night to 103 degrees. Her urine culture was ultimately negative. She continues on Rocephin. Objective Initial Vital Signs Temp Pulse Resp BP Pulse Ox 99.3 F 105 16 158/80 94 09/26/17 19:58 09/26/17 19:58 09/26/17 19:58 09/26/17 19:58 09/26/17 19:58 - General physical appearance Present: well developed, well nourished, no distress - Respiratory Present: normal respiratory effort - Abdomen Present: soft - Genitourinary Urine Appearance: Present: Hematuria (Light pink to cranberry colored urine in the catheter now.) - Labs 09/29/17 05:34 09/29/17 05:34 Diabetes panel 09/29/17 Range/Units 05:34 Sodium 134 L (136-145) mEq/L Potassium 4.4 (3.5-5.1) mEq/L Chloride 103 (98-107) mEq/L Carbon Dioxide 21 L (23-29) mEq/L BUN 56 H (8-23) mg/dL Creatinine 3.05 H (0.60-1.20) mg/dL Glucose 164 H (70-105) mg/dL Calcium 8.5 L (8.6-10.3) mg/dL Calcium panel 09/29/17 Range/Units 05:34 Calcium 8.5 L (8.6-10.3) mg/dL Pituitary panel 09/29/17 Range/Units 05:34 Sodium 134 L (136-145) mEq/L Potassium 4.4 (3.5-5.1) mEq/L Chloride 103 (98-107) mEq/L Carbon Dioxide 21 L (23-29) mEq/L BUN 56 H (8-23) mg/dL Creatinine 3.05 H (0.60-1.20) mg/dL Glucose 164 H (70-105) mg/dL Calcium 8.5 L (8.6-10.3) mg/dL Adrenal panel 09/29/17 Range/Units 05:34 Sodium 134 L (136-145) mEq/L Potassium 4.4 (3.5-5.1) mEq/L Chloride 103 (98-107) mEq/L Carbon Dioxide 21 L (23-29) mEq/L BUN 56 H (8-23) mg/dL Creatinine 3.05 H (0.60-1.20) mg/dL Glucose 164 H (70-105) mg/dL Calcium 8.5 L (8.6-10.3) mg/dL - VTE Documentation of Mechanical Device: Intermittent pneumatic compression device Consult Discharge Plan - Plan Referrals: Isidro Harris MD [Partnered Physician] -
--- NOTE | 2017-09-29 10:09 | Nephrology Consult Note ---
Date of Encounter: 09/29/17 Time of Encounter: 10:55 Assessment and Plan (1) Acute kidney injury Current Visit: Yes Status: Acute IVY on progressive CKD stage IV. Recent imaging reveal renal stones, bladder mass and contralateral hydronephrosis. S/p stone extraction with laser lithotripsy, and then her SCr appeared stable but as noted on day 2 post op, her SCr is now worsening. Will repeat renal imaging to assess for recurrence of hydro. She may also be developing an IVY from infection/sepsis with complicated UTI and fevers reported yesterday. I reviewed her outpatient notes and old [facility] notes. She has been followed by Dr. Schmidt and then Dr. Lockwood, with the last outpt consult noted in June. His group stopped rounding at [facility] however apparently still is in clinical practice. I'd be happy to consult on this patient while hospitalized. I noted in older notes that she's have longstanding DM, prior Vanco injury from a spinal surgery/infection and etc as the likely etiology for her slowly progressive CKD stage IIIb-IV (eGFR has more recently been in the upper 20s and lower 30s at times in the last several months). I recommend updating the UA with microscopy to assess for renal casts such as ATN and to screen uric acid, CK and AM labs. For the time being continue to follow a renal protective strategy: strict I/Os, daily weights, avoidance of any unnecessary nephrotoxins, dosing renally cleared Rx by [facility] (such as the Pregabalin should be dose reduced to 75-150mg per day, and will hold fenofibrate during this admission). Thank you for consulting the [facility] group. Will follow with you. (2) CKD (chronic kidney disease), stage IV Current Visit: Yes Status: Chronic (3) Diabetic nephropathy associated with type 2 diabetes mellitus Current Visit: Yes Status: Acute (4) Bladder mass Current Visit: Yes Status: Acute (5) Complicated UTI (urinary tract infection) Current Visit: Yes Status: Acute (6) Hydronephrosis Current Visit: Yes Status: Acute Qualifiers: Hydronephrosis type: other Qualified Code(s): N13.39 - Other hydronephrosis (7) Ureterolithiasis Current Visit: Yes Status: Acute History of Present Illness - Reason for Consult Consult date: 09/29/17 Acute Kidney Injury, Chronic Kidney Disease Requesting physician: Rd Diggs - Chief Complaint IVY on CKD with recent renal stone, renal mass and hydronephrosis - History of Present Illness 77 y/o very pleasant WF with a pmh of CAD s/p AICD, CKD stage IV, HTN, and et al who presented with left flank / abd pains and found to have a bladder mass and left renal stones plus right hydronephrosis and IVY on CKD. Urology assisted with stone retrival but her renal function continued to worsen. She has not been taking NSAIDs. She has been having fevers and UTI. She said her primary nephrology is with Dr. Lockwood, but that she said she had received a "confusing" letter from him stating that he was "semi retired." She did not affirm uremic complaints today. Past Med Surg Social Fam HX - Past Medical History Medical history: CHF, diabetes, hypertension, kidney stones Additional medical history: melanoma cancer s/p resection + cheom, uterine CA s/ p TAHBSO + radiation, kidney disease stage 3, psoriasis Psychiatric history: no psych history - Past Surgical History Surgical History: cancer surgery, hysterectomy, pacemaker/AICD Additional surgical history: back surgery - Social History Smoking Status: Former smoker Smokeless Tobacco Status: No Alcohol use: none Drug use: none - Family History Father Adopted: No Family Member Ethnicity: Non- Living Status: Hx Family Cardiac Disorders: Yes Hx Family Respiratory Disorders: No Hx Family Cancer: Yes (Colon) Hx Family GI Disorders: No Hx Family Endocrine Disorder: Yes Hx Family Neuromuscular Disorders: No Hx Family Neurologic Disorders: No Hx Family HEENT Disorders: No Hx Family Autoimmune Disorders: Yes Medications and Allergies Amitriptyline HCl 75 mg PO HS 05/03/17 [History] Ascorbic Acid [Vitamin C] 500 mg PO DAILY 05/03/17 [History] Aspirin Enteric Coated [Aspirin EC] 81 mg PO DAILY 05/03/17 [History] Carvedilol [Coreg] 25 mg PO BID 05/03/17 [History] Cinnamon Bark [Cinnamon] 500 mg PO DAILY 05/03/17 [History] Cranberry 500 mg PO DAILY 05/03/17 [History] Fenofibrate Nanocrystallized [Triglide] 160 mg PO DAILY 05/03/17 [History] Fiber Advance 1 tab PO TID 05/03/17 [History] Insulin ASPART [NovoLOG] 16 unit SQ 0800,1200 05/03/17 [History] Insulin ASPART [NovoLOG] 20 unit SQ 1700 05/03/17 [History] Insulin Glargine,Hum.rec.anlog [Lantus Solostar] 42 unit SQ DAILY 05/03/17 [ History] Ketoconazole 2% CRM [Nizoral Cream] 1 appl TP DAILY 05/03/17 [History] Lactobacillus [Culturelle] 1 each PO DAILY 05/03/17 [History] Loratadine [Claritin] 10 mg PO DAILY 05/03/17 [History] Multivitamin [One Daily Multivitamin] 1 each PO DAILY 05/03/17 [History] [place]-3/Dha/Epa/Fish Oil [Fish Oil 1,000 mg Softgel] 1,000 mg PO DAILY 05/03/17 [History] Potassium Gluconate 594 mg PO DAILY 05/03/17 [History] Pregabalin [Lyrica] 150 mg PO BID 05/03/17 [History] [place] 2 tab PO DAILY PRN 05/03/17 [History] Triamcinolone Acet 0.1% CRM [Kenalog] 1 appl TP DAILY 05/03/17 [History] Vitamin E Acid Succinate [Vitamin E] 400 unit PO DAILY 05/03/17 [History] hydrALAZINE [HydrALAZINE] 10 mg PO BID 05/03/17 [History] Nitrofurantoin (BID) [Macrobid] 100 mg PO DAILY 09/26/17 [History] Secukinumab [Cosentyx Pen] 300 mg SQ QMONTH 09/26/17 [History] 3 Allergy/AdvReac Type Severity Reaction Status Date / Time iodine Allergy Rash Verified 09/26/17 21:31 IVP DYE Allergy Rash Uncoded 09/26/17 19:57 Review of Systems All Systems: reviewed and no additional remarkable complaints except as stated Exam - Vital Signs Vital signs: Initial Vital Signs Temp Pulse Resp BP Pulse Ox 99.3 F 105 16 158/80 94 09/26/17 19:58 09/26/17 19:58 09/26/17 19:58 09/26/17 19:58 09/26/17 19:58 Vital Signs - Last 8 Hours Temp Pulse Resp BP Pulse Ox 09/29/17 05:27 97.6 F 67 15 133/61 97 Intake and Output 09/28/17 09/29/17 09/29/17 23:59 07:59 15:59 Intake Total 0 / 0 110 / 110 120 / 120 Output Total 425 / 425 0 / 0 Balance -425 / -425 110 / 110 95 / 95 Intake: IV Fluids Rocephin 1,000 MG In Water for inj. (sterile) 10 ML @ 600 mls/ hr IVP Q24H [facility] Rx#:[id number] Oral 0 / 0 100 / 100 120 / 120 Output: Urine 0 / 0 0 / 0 Catheter 425 / 425 Other: Meal Dinner Breakfast Percent of Meal Consumed 25% 90% Stool Size Smear Stool Consistency formed Stool Color Brown # Voids 1 # Bowel Movements 0 0 Weight 90.9 kg Blood Glucose* 198 155 - General Appearance General appearance: well-developed, well-nourished, appears started age, obese EENT: ATNC, PERRL, mucous membranes moist Neck: supple Respiratory: clear Cardiology: edema (trace LE edema b/l), regular rate, regular rhythm, normal S1 , normal S2 Gastrointestinal: normoactive bowel sounds, no tenderness, guarding Neurologic: no focal deficit, no asterixis, alert and oriented x3 Musculoskeletal: no deformities, no erythema Psychiatric: mood/affect appropriate, cooperative Results - Lab Results 09/29/17 05:34 09/29/17 05:34 Most recent lab results Calcium 8.5 mg/dL (8.6-10.3) L 09/29/17 05:34 I reviewed the labs, vitals, imaging, med lists, progress notes. Consult Discharge Plan - Plan Referrals: Isidro Harris MD [Partnered Physician] -
--- NOTE | 2017-09-29 11:20 | Internal Med Progress Note ---
Hospitalist Progress Note - Encounter Date of Encounter: 09/29/17 Time of Encounter: 09:00 - Subjective Interval History: Patient is awake and alert. She has been having bleeding from her decubitus ulcer site. No new episodes of fever overnight. No abdominal pain and this time. No nausea or vomiting. - Exam Vitals: Temp Pulse Resp BP Pulse Ox 97.6 F 74 18 153/74 96 09/29/17 10:39 09/29/17 10:39 09/29/17 10:39 09/29/17 10:39 09/29/17 10:39 Exam: General: Patient is alert, no acute distress, oriented x 3, Obese Head: atraumatic, normocephalic, Eye: normal appearance, PERRL, no scleral icterus, no conjunctival injection Neck: normal inspection, trachea midline, full ROM, no carotid bruits Chest: normal inspection, symmetric chest rise Respiratory: Good respiratory effort. Normal breath sounds. No wheezing or crackles. Cardiovascular: Regular rate and rhythm. s1 and s2 No clicks, rubs, gallops, or murmurs. No pedal edema Abdomen: Abdomen is soft, nontender. Bowel sounds are present Skin: warm, dry, intact. Sacral Decubitus ulcer with superficial bleeding. Neuro: Alert oriented x 3 normal cranial nerves, no focal deficits - Assessment and Plan (1) Complicated UTI (urinary tract infection) Current Visit: Yes Status: Acute Assessment and Plan: No new episodes of fever. WBC count remains normal. We will continue current antibiotic. Urine cultures show no significant growth. (2) Hydronephrosis Current Visit: Yes Status: Acute Assessment and Plan: Status post [id number], laser lithotripsy, basket stone extraction and right ureteral stone placement along with diagnostic left ureteroscopy and stent placement. Postop day 2. Could patient appears to have decreasing urine output. Urology recommends placement of Zuniga catheter. Creatinine worsened today. (3) Diabetes mellitus Current Visit: Yes Status: Chronic Assessment and Plan: Fairly controlled. Continue diabetic diet and sliding scale insulin. (4) Bladder mass Current Visit: Yes Status: Acute Assessment and Plan: Urology following for further evaluation. Patient underwent surgery 2 days back (5) Acute on chronic renal failure Current Visit: Yes Status: Acute Assessment and Plan: Renal function worsened today. Consult nephrology. Monitor renal function closely. (6) DVT prophylaxis Current Visit: Yes Status: Acute Assessment and Plan: Patient having superficial bleeding from decubitus ulcer site. We will stop heparin. Place patient on SCDs (7) Sacral decubitus ulcer, stage III Current Visit: Yes Status: Acute Assessment and Plan: With acute bleeding. Continue local wound care. Compressive bandage. Follow wound care recommendations - Time Spent with Patient Total time spent is greater than 50% in coordination of care (as documented) at patient's floor/unit and/or counseling patient: Plan of Care Discussed with: patient Internal Medicine: Result - Labs CBC & Chem 7: 09/29/17 05:34 09/29/17 05:34 Labs: Short CBC 09/29/17 Range/Units 05:34 WBC 4.2 L (4.3-11.1) K/mcL Hgb 8.6 L (11.5-15.4) g/dL Hct 26.9 L (35.3-44.9) % Plt Count 89 L (140-400) K/mcL Neutrophils # 3.1 (1.6-8.9) K/mcL BMP 09/29/17 05:34 Sodium 134 L Potassium 4.4 Chloride 103 Carbon Dioxide 21 L BUN 56 H Creatinine 3.05 H Glucose 164 H Calcium 8.5 L - VTE Documentation of Mechanical Device: Intermittent pneumatic compression device Consult Discharge Plan - Plan Referrals: Isidro Harris MD [Partnered Physician] - (2) Hydronephrosis Qualifiers: Hydronephrosis type: other Qualified Code(s): N13.39 - Other hydronephrosis (3) Diabetes mellitus Qualifiers: Diabetes mellitus type: type 2 Diabetes mellitus emt intermediate insulin use: with emt intermediate use Diabetes mellitus complication status: with kidney complications Diabetes mellitus complication detail: with chronic kidney disease Chronic kidney disease stage: stage 4 (severe) Qualified Code(s): E11.22 - Type 2 diabetes mellitus with diabetic chronic kidney disease; N18.4 - Chronic kidney disease, stage 4 (severe); N18.4 - Chronic kidney disease, stage 4 (severe); N18.4 - Chronic kidney disease, stage 4 (severe); N18.4 - Chronic kidney disease , stage 4 (severe); Z79.4 - salvage determiner (current) use of insulin; Z79.4 - detention (current) use of insulin; Z79.4 - salvage determiner (current) use of insulin; Z79.4 - detention (current) use of insulin (5) Acute on chronic renal failure Qualifiers: Acute renal failure type: unspecified Chronic kidney disease stage: stage 3 ( moderate) Qualified Code(s): N17.9 - Acute kidney failure, unspecified; N18.3 - Chronic kidney disease, stage 3 (moderate)
[2017-09-29] MEDS: Ringers Solution, Lactated 1,000 ML IVC SCH (12:48)
[2017-09-29] MEDS: Acetaminophen 325 MG TABLET PO PRN (15:26)
[2017-09-29] MEDS ORDERED: Acetaminophen 325 MG TABLET PO ONE (17:21)
[2017-09-29] MEDS: cefTRIAXone 1,000 MG in Water for inj. (sterile) 20 ML 10 ML IVP SCH (21:31)
[2017-09-29] MEDS: Insulin DETEMIR 100 UNIT/ML X5UNITS SQ SCH (21:31)
[2017-09-30] MEDS: *HR* OxyCODONE Immed Rel 5 MG TABLET PO PRN ×3 (01:03→20:45)
[2017-09-30] MEDS: Ringers Solution, Lactated 1,000 ML IVC SCH (04:18)
[2017-09-30] MEDS: *HR* HYDROcodone/Acet 5/325 mg TABLET PO PRN (04:18)
[2017-09-30 05:16] LABS: Mean Corpuscular Volume 93.4 fL (83.0-100.0)
[2017-09-30 05:18] LABS: Basophils % 0.5 %; Eosinophils # 0.2 K/mcL (0.0-0.6); Eosinophils % 5.1 %; Hematocrit 25.5 % (35.3-44.9); Hemoglobin 8.3 g/dL (11.5-15.4); Immature Granulocytes % 1.9 % (0-4); Immature Platelets 14.7 % (1.1-6.1); Lymphocytes # 0.8 K/mcL (0.6-4.6); Lymphocytes % 21.9 %; Mean Corpuscular HGB Conc 32.5 g/dL (31.6-35.5); Mean Corpuscular Hemoglobin 30.4 pg (28.0-33.3); Mean Platelet Volume 13.4 fL (9.4-12.4); Monocytes # 0.4 K/mcL (0.0-1.3); Monocytes % 11.4 %; Neutrophils # 2.2 K/mcL (1.6-8.9); Platelet Count 83 K/mcL (140-400); Red Blood Count 2.73 M/mcL (3.82-4.97); Red Cell Distribution Width 15.5 % (11.5-14.5); Segmented Neutrophils % 59.2 %
[2017-09-30 05:36] LABS: Calcium 8.3 mg/dL (8.6-10.3); Potassium 4.5 mEq/L (3.5-5.1); Uric Acid 8.9 mg/dL (2.3-7.6)
[2017-09-30] MEDS: Insulin LISPRO 300 UNITS/3 ML VIAL SQ SCH ×4 (08:09→20:48)
[2017-09-30] MEDS: Ascorbic Acid 500 MG TABLET PO SCH (08:18)
[2017-09-30] MEDS: Loratadine 10 MG TABLET PO SCH (08:18)
[2017-09-30] MEDS: Triamcinolone Acet 0.1% CRM 15 GM TUBE TP SCH (08:18)
[2017-09-30] MEDS: hydrALAZINE 10 MG TABLET PO SCH ×2 (08:18→20:14)
[2017-09-30] MEDS: Lactobacillus 1 EACH CAP.SPRINK PO SCH (08:18)
[2017-09-30] MEDS: Pregabalin 75 MG CAPSULE PO SCH ×2 (08:18→20:14)
[2017-09-30] MEDS: Aspirin Enteric Coated 81 MG Tablet PO SCH (08:18)
[2017-09-30] MEDS: Multivit/Ca/Min/Fe/FA 1 TAB TABLET PO SCH (08:19)
[2017-09-30] MEDS: MICONAZOLE NITRATE 57 GM TUBE TP SCH ×2 (08:19→20:48)
[2017-09-30] MEDS: Ketoconazole 2% CRM 15 GM TUBE TP SCH (08:19)
--- NOTE | 2017-09-30 08:36 | Nephrology Progress Note ---
Date of Encounter: 09/30/17 Time of Encounter: 08:34 - Assessment and Plan (1) Acute kidney injury Current Visit: Yes Status: Acute Recommend continuing gentle IVF and her renal function is now trending better. Appreciate Urology. Of note the repeat Retroperitoneal U/S that I had ordered yesterday fortunately did not demonstrate recurrence of the hydronephrosis, though she still has a large nonobstructing renal stone that may someday be an issue. 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 Continue to follow a renal protective strategy: strict I/Os, daily weights, avoidance of any unnecessary nephrotoxins, dosing renally cleared Rx by [facility] ( such as the Pregabalin should be dose reduced to 75-150mg per day, and will hold fenofibrate during this admission). My colleague Dr. Disla will be on-call tomorrow AM. The pt said she knows Dr. Disla from way back from when she worked with Dr. Lockwood. Thank you. (2) CKD (chronic kidney disease), stage IV Current Visit: Yes Status: Chronic She has CKD stage IV (3) Diabetic nephropathy associated with type 2 diabetes mellitus Current Visit: Yes Status: Chronic Likely contributory to her underlying CKD (4) Bladder mass Current Visit: Yes Status: Acute Appreciate Urology (5) Complicated UTI (urinary tract infection) Current Visit: Yes Status: Acute As per primary (6) Hydronephrosis Current Visit: Yes Status: Acute Appears to have now resolved as noted on the most recent retoperitoneal U/S on Sunday. Of noter her SCr is now improving. Qualifiers: Hydronephrosis type: other Qualified Code(s): N13.39 - Other hydronephrosis (7) Ureterolithiasis Current Visit: Yes Status: Acute Acute on chronic. The Retroperitoneal U/S demonstrated a 1.2cm nonobstructing stone still in situ. Counseled her to focus on adequate water with lemon intake for a goal UOP of 2L per day. Subjective Principal diagnosis: IVY on CKD Interval history: Pt was s/e and she did not affirm N/V/D or Shortness of breath changes, which the latter she described as about the same as yesterday. She that though Dr. Lockwood was her primary field crop farmer, she is interested in changing since she had received an unusual and "unclear" letter from him that he was retiring. Objective - Vital Signs Vital signs: Vital Signs Temp Pulse Resp BP Pulse Ox 09/30/17 07:29 97 F L 63 16 127/75 97 09/30/17 04:25 97.8 F 65 15 132/72 97 09/29/17 23:46 98.4 F 60 15 118/68 95 09/29/17 21:18 98.6 F 62 15 119/65 94 09/29/17 17:07 101.4 F H 74 16 138/69 94 09/29/17 15:00 101.5 F H 73 18 130/70 94 09/29/17 10:39 97.6 F 74 18 153/74 96 Intake and Output 09/29/17 09/30/17 09/30/17 23:59 07:59 15:59 Intake Total 130 / 130 1120 / 1120 Output Total 850 / 850 900 / 900 Balance -720 / -720 220 / 220 Intake: IV Fluids 1000 / 1000 Lactated Ringers 1,000 ML @ 75 1000 / 1000 mls/hr IVC .[id number] KATELYNN Rx#: [id number] Rocephin 1,000 MG In Water for inj. (sterile) 10 ML @ 600 mls/ hr IVP Q24H KATELYNN Rx#:[id number] Oral 120 / 120 120 / 120 Output: Catheter 850 / 850 900 / 900 Other: Meal Dinner Percent of Meal Consumed 100% # Bowel Movements 0 Weight 91.3 kg Blood Glucose* 140 118 - General Appearance General appearance: Present: well-developed, well-nourished, appears started age , obese EENT: Present: ATNC, PERRL, mucous membranes moist Neck: Present: supple Respiratory: Present: clear Cardiology: Present: no edema, regular rate, normal S1, normal S2 Gastrointestinal: Present: normoactive bowel sounds, no tenderness, no guarding Integumentary: Present: no rash, warm and dry Neurologic: Present: no focal deficit, no asterixis, alert and oriented x3 Musculoskeletal: Present: no deformities, no erythema, no cyanosis Psychiatric: Present: mood/affect appropriate, cooperative - Lab 09/30/17 04:55 09/30/17 04:55 Most recent lab results Calcium 8.3 mg/dL (8.6-10.3) L 09/30/17 04:55 - Imaging Kidney/bladder ultrasound: report reviewed - VTE Documentation of Mechanical Device: Intermittent pneumatic compression device Consult Discharge Plan - Plan Referrals: Isidro Harris MD [Partnered Physician] -
--- NOTE | 2017-09-30 09:09 | Urology Progress Note ---
Date of Encounter: 09/30/17 Time of Encounter: 09:07 - Assessment and Plan (1) Hydronephrosis Current Visit: Yes Status: Acute Assessment and plan: Status post bilateral ureteral stent placement and Zuniga catheter. Continue Zuniga catheter. We will monitor her creatinine. Qualifiers: Hydronephrosis type: other Qualified Code(s): N13.39 - Other hydronephrosis (2) Ureterolithiasis Current Visit: Yes Status: Acute Assessment and plan: Resolved. (3) Complicated UTI (urinary tract infection) Current Visit: Yes Status: Acute Assessment and plan: Fevers typically slowly improve with pyelonephritis. Continue IV antibiotic. Urine culture was ultimately negative. We will continue to monitor. Progress Note Narrative: 77-year-old woman status post bilateral ureteral stent placement. She had a right ureteral stone removed. There was no mass seen within the bladder. There were radiation changes. I replaced a catheter. Urine is draining clear now. Renal function is improving. She had a temperature to 101.5 degrees yesterday. She is currently on Rocephin. Objective Initial Vital Signs Temp Pulse Resp BP Pulse Ox 99.3 F 105 16 158/80 94 09/26/17 19:58 09/26/17 19:58 09/26/17 19:58 09/26/17 19:58 09/26/17 19:58 - General physical appearance Present: well developed, well nourished, no distress - Respiratory Present: normal respiratory effort - Abdomen Present: soft - Genitourinary Urine Appearance: Present: Clear (The urine is clear but somewhat cloudy.) - Labs 09/30/17 04:55 09/30/17 04:55 Diabetes panel 09/30/17 Range/Units 04:55 Sodium 136 (136-145) mEq/L Potassium 4.5 (3.5-5.1) mEq/L Chloride 102 (98-107) mEq/L Carbon Dioxide 24 (23-29) mEq/L BUN 55 H (8-23) mg/dL Creatinine 2.44 H (0.60-1.20) mg/dL Glucose 141 H (70-105) mg/dL Calcium 8.3 L (8.6-10.3) mg/dL Calcium panel 09/30/17 Range/Units 04:55 Calcium 8.3 L (8.6-10.3) mg/dL Pituitary panel 09/30/17 Range/Units 04:55 Sodium 136 (136-145) mEq/L Potassium 4.5 (3.5-5.1) mEq/L Chloride 102 (98-107) mEq/L Carbon Dioxide 24 (23-29) mEq/L BUN 55 H (8-23) mg/dL Creatinine 2.44 H (0.60-1.20) mg/dL Glucose 141 H (70-105) mg/dL Calcium 8.3 L (8.6-10.3) mg/dL Adrenal panel 09/30/17 Range/Units 04:55 Sodium 136 (136-145) mEq/L Potassium 4.5 (3.5-5.1) mEq/L Chloride 102 (98-107) mEq/L Carbon Dioxide 24 (23-29) mEq/L BUN 55 H (8-23) mg/dL Creatinine 2.44 H (0.60-1.20) mg/dL Glucose 141 H (70-105) mg/dL Calcium 8.3 L (8.6-10.3) mg/dL - VTE Documentation of Mechanical Device: Intermittent pneumatic compression device Consult Discharge Plan - Plan Referrals: Isidro Harris MD [Partnered Physician] -
--- NOTE | 2017-09-30 09:29 | Internal Med Progress Note ---
Hospitalist Progress Note - Encounter Date of Encounter: 09/30/17 Time of Encounter: 09:20 - Subjective Interval History: Patient feels all right. Complains of back pain. Has not noticed much from her decubitus ulcers today. Did have fevers with MAXIMUM TEMPERATURE of 101.5 last night. No dysuria. Hematuria improving. - Exam Vitals: Temp Pulse Resp BP Pulse Ox 97 F L 63 16 127/75 97 09/30/17 07:29 09/30/17 07:29 09/30/17 07:29 09/30/17 07:29 09/30/17 07:29 Exam: General: Patient is alert, no acute distress, oriented x 3 Head: atraumatic, normocephalic, Eye: normal appearance, PERRL, no scleral icterus, no conjunctival injection Neck: normal inspection, trachea midline, full ROM, no carotid bruits Chest: normal inspection, symmetric chest rise Respiratory: Good respiratory effort. Normal breath sounds. No wheezing or crackles. Cardiovascular: Regular rate and rhythm. s1 and s2 No clicks, rubs, gallops, or murmurs. No pedal edema Abdomen: Abdomen is soft, nontender. Bowel sounds are present. Zuniga Catheter in place Skin: warm, dry, intact. Sacral decubitus ulcers with dressing in place Neuro: Alert oriented x 3 normal cranial nerves, no focal deficits Psych: Patient's affect is normal - Assessment and Plan (1) Complicated UTI (urinary tract infection) Current Visit: Yes Status: Acute Assessment and Plan: Urine culture negative. On IV antibiotics. Did have fever last night. Since then she has been afebrile. WBC count 3.7. We will continue current antibiotics. Urology following. (2) Hydronephrosis Current Visit: Yes Status: Acute Assessment and Plan: Status post [id number], laser lithotripsy, basket stone extraction and right ureteral stone placement along with diagnostic left ureteroscopy and stent placement. Postop day 3. Zuniga catheter placed yesterday. Urine appears to be flaring. Renal function is also improving. (3) Diabetes mellitus Current Visit: Yes Status: Chronic Assessment and Plan: Controlled. Continue current insulin regimen. (4) Bladder mass Current Visit: Yes Status: Acute Assessment and Plan: Urology following. Continue outpatient follow-up after discharge (5) Acute on chronic renal failure Current Visit: Yes Status: Acute Assessment and Plan: Renal function improving today. Nephrology consult appreciated. We will follow recommendations. Stop IV fluids at this time. (6) DVT prophylaxis Current Visit: Yes Status: Acute Assessment and Plan: With SCDs (7) Sacral decubitus ulcer, stage III Current Visit: Yes Status: Acute Assessment and Plan: Continue local wound care. Continue to monitor for bleeding. - Time Spent with Patient Total time spent is greater than 50% in coordination of care (as documented) at patient's floor/unit and/or counseling patient: Plan of Care Discussed with: patient Internal Medicine: Result - Labs CBC & Chem 7: 09/30/17 04:55 09/30/17 04:55 Labs: Short CBC 09/30/17 Range/Units 04:55 WBC 3.7 L (4.3-11.1) K/mcL Hgb 8.3 L (11.5-15.4) g/dL Hct 25.5 L (35.3-44.9) % Plt Count 83 L (140-400) K/mcL Neutrophils # 2.2 (1.6-8.9) K/mcL BMP 09/30/17 04:55 Sodium 136 Potassium 4.5 Chloride 102 Carbon Dioxide 24 BUN 55 H Creatinine 2.44 H Glucose 141 H Calcium 8.3 L - Impressions Impressions Retroperitoneum Ultrasound 09/29/17 09:56 IMPRESSION: 1.2 cm stone in the inferior right kidney. No hydronephrosis. D/ / Sakina Villa MD / Sakina Villa MD Interpreting Provider: Sakina Villa MD - VTE Documentation of Mechanical Device: Intermittent pneumatic compression device Consult Discharge Plan - Plan Referrals: Isidro Harris MD [Partnered Physician] - (2) Hydronephrosis Qualifiers: Hydronephrosis type: other Qualified Code(s): N13.39 - Other hydronephrosis (3) Diabetes mellitus Qualifiers: Diabetes mellitus type: type 2 Diabetes mellitus mcc insulin use: with manager intranet use Diabetes mellitus complication status: with kidney complications Diabetes mellitus complication detail: with chronic kidney disease Chronic kidney disease stage: stage 4 (severe) Qualified Code(s): E11.22 - Type 2 diabetes mellitus with diabetic chronic kidney disease; N18.4 - Chronic kidney disease, stage 4 (severe); N18.4 - Chronic kidney disease, stage 4 (severe); N18.4 - Chronic kidney disease, stage 4 (severe); N18.4 - Chronic kidney disease , stage 4 (severe); Z79.4 - [facility] (current) use of insulin; Z79.4 - [facility] (current) use of insulin; Z79.4 - [facility] (current) use of insulin; 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
[2017-09-30] MEDS: Acetaminophen 325 MG TABLET PO PRN (20:13)
[2017-09-30] MEDS: cefTRIAXone 1,000 MG in Water for inj. (sterile) 20 ML 10 ML IVP SCH (20:14)
[2017-09-30] MEDS: Insulin DETEMIR 100 UNIT/ML X5UNITS SQ SCH (20:46)
[2017-09-30] MEDS: Nystatin OINT 15 GM TUBE TP SCH (20:47)
[2017-10-01 03:46] LABS: Red Cell Distribution Width 15.2 % (11.5-14.5)
[2017-10-01 03:48] LABS: Basophils % 0.4 %; Eosinophils # 0.1 K/mcL (0.0-0.6); Eosinophils % 2.2 %; Hematocrit 25.7 % (35.3-44.9); Hemoglobin 8.4 g/dL (11.5-15.4); Immature Granulocytes % 1.8 % (0-4); Immature Platelets 14.4 % (1.1-6.1); Lymphocytes # 1.1 K/mcL (0.6-4.6); Lymphocytes % 20.5 %; Mean Corpuscular HGB Conc 32.7 g/dL (31.6-35.5); Mean Corpuscular Volume 91.8 fL (83.0-100.0); Mean Platelet Volume 14.1 fL (9.4-12.4); Monocytes # 0.4 K/mcL (0.0-1.3); Monocytes % 7.3 %; Neutrophils # 3.5 K/mcL (1.6-8.9); Platelet Count 90 K/mcL (140-400); Segmented Neutrophils % 67.8 %
[2017-10-01 04:06] LABS: Calcium 8.7 mg/dL (8.6-10.3); Potassium 4.5 mEq/L (3.5-5.1)
[2017-10-01] MEDS: Multivit/Ca/Min/Fe/FA 1 TAB TABLET PO SCH (07:12)
[2017-10-01] MEDS: Aspirin Enteric Coated 81 MG Tablet PO SCH (07:12)
[2017-10-01] MEDS: Ketoconazole 2% CRM 15 GM TUBE TP SCH (07:12)
[2017-10-01] MEDS: Nystatin OINT 15 GM TUBE TP SCH ×2 (07:13→20:41)
[2017-10-01] MEDS: hydrALAZINE 10 MG TABLET PO SCH ×2 (07:14→20:37)
[2017-10-01] MEDS: Triamcinolone Acet 0.1% CRM 15 GM TUBE TP SCH (07:14)
[2017-10-01] MEDS: MICONAZOLE NITRATE 57 GM TUBE TP SCH ×2 (07:15→20:41)
[2017-10-01] MEDS: Loratadine 10 MG TABLET PO SCH (07:15)
[2017-10-01] MEDS: Pregabalin 75 MG CAPSULE PO SCH (07:16)
[2017-10-01] MEDS: Lactobacillus 1 EACH CAP.SPRINK PO SCH (07:16)
[2017-10-01] MEDS: *HR* OxyCODONE Immed Rel 5 MG TABLET PO PRN (07:18)
[2017-10-01] MEDS: Ascorbic Acid 500 MG TABLET PO SCH (07:23)
[2017-10-01] MEDS: Insulin LISPRO 300 UNITS/3 ML VIAL SQ SCH ×4 (08:04→20:40)
[2017-10-01 10:42] LABS: Calculi Mass 10 mg
--- NOTE | 2017-10-01 13:37 | Nephrology Progress Note ---
Date of Encounter: 10/01/17 Time of Encounter: 12:00 - Assessment and Plan (1) Acute kidney injury Current Visit: Yes Status: Acute SCr noted at 2,47, GFR 19 which is stable from yesterday. It is unclear if would improve back prior baseline or not at this time however no acutre indication for EMBEDDED SOFTWARE ARCHITECT at this time. On discharge, pt wants to followup with Dr Hanson instead, needs appt within 2weeks and BMP within 1 week Continue to avoid nephrotoxins if possible Continue adequate po fluid intake (2) Ureterolithiasis Current Visit: Yes Status: Acute per urology (3) Bladder mass Current Visit: Yes Status: Acute (4) Hydronephrosis Current Visit: Yes Status: Acute Per urology Qualifiers: Hydronephrosis type: other Qualified Code(s): N13.39 - Other hydronephrosis (5) Complicated UTI (urinary tract infection) Current Visit: Yes Status: Acute per primary team (6) CKD (chronic kidney disease), stage IV Current Visit: Yes Status: Chronic GFR noted from to this year prior to this admission (7) Diabetic nephropathy associated with type 2 diabetes mellitus Current Visit: Yes Status: Chronic Subjective Principal diagnosis: IVY on CKD Interval history: Pt seen and examined doing well with family at bedside. No new complaints. Objective - Vital Signs Vital signs: Vital Signs Temp Pulse Resp BP Pulse Ox 10/01/17 10:26 97.7 F 61 15 111/65 93 10/01/17 08:15 94 10/01/17 07:01 97.7 F 63 15 148/73 94 10/01/17 04:26 98.0 F 63 14 152/68 92 10/01/17 00:29 98.6 F 09/30/17 21:03 99.3 F 09/30/17 19:07 103.0 F H 67 15 156/67 98 Intake and Output 09/30/17 10/01/17 10/01/17 23:59 07:59 15:59 Intake Total 120 / 120 520 / 520 Output Total 450 / 450 805 / 805 Balance -440 / -440 -685 / -685 520 / 520 Intake: IV Fluids Rocephin 1,000 MG In Water for inj. (sterile) 10 ML @ 600 mls/ hr IVP Q24H KATELYNN Rx#:[id number] Oral 0 / 0 120 / 120 520 / 520 Output: Catheter 450 / 450 805 / 805 Other: Meal Lunch Percent of Meal Consumed 100% Weight 92 kg Blood Glucose* 190 112 154 Patient Weight 10/01/17 23:59 Weight 92 kg - General Appearance General appearance: Present: well-developed, well-nourished EENT: Present: ATNC, mucous membranes moist Neck: Present: no JVD, supple Respiratory: Present: clear (ant bilat) Cardiology: Present: no edema, normal S1, normal S2 Gastrointestinal: Present: no tenderness, no guarding, obese Integumentary: Present: warm and dry Neurologic: Present: no focal deficit Musculoskeletal: Present: no deformities Psychiatric: Present: mood/affect appropriate, cooperative - Lab 10/01/17 03:02 10/01/17 03:02 Most recent lab results Calcium 8.7 mg/dL (8.6-10.3) 10/01/17 03:02 - VTE Documentation of Mechanical Device: Intermittent pneumatic compression device Consult Discharge Plan - Plan Referrals: Isidro Harris MD [Partnered Physician] -
--- NOTE | 2017-10-01 14:32 | Internal Med Progress Note ---
Hospitalist Progress Note - Encounter Date of Encounter: 10/01/17 Time of Encounter: 14:28 - Subjective Interval History: Patient with history of uterine cancer status post KRISTIN/BSO and radiation, diabetes, psoriasis, peripheral neuropathy and recurrent UTI was hospitalized here with acute complicated urinary tract infection related to presence of right ureteral calculus along with hydronephrosis and hydroureter. Patient was started on treatment with IV Rocephin based on her prior cultures. She did not have blood cultures sent in the ER. Patient has been having intermittent episodes of fever. She was evaluated by urology and underwent right ureteroscopy with laser lithotripsy and basket stone extraction along with right ureteral stent placement on 09/27. She has continued to have episodes of fever with her last episode being yesterday evening at 7 PM with a temperature of 103. Her WBC count is normal. However given her continued bouts of fever, urology recommends monitoring her. She has no fever for 24 hours. Urine cultures were negative. She did have acute kidney injury on his chronic kidney disease and nephrology has been following her. Her creatinine appears to be stabilizing. She will follow up with nephrology after discharge. She does have chronic anemia related to chronic kidney disease. She did have episodes of bleeding from her decubitus ulcers while she was receiving subcutaneous heparin for DVT prophylaxis. As such heparin was stopped. Patient is on SCDs for DVT prophylaxis. Her bleeding has since stopped. Patient is awake and alert today. No new complaints at this time. She felt weak earlier this morning but has improved back to her baseline since then. She reports that she has sufficient help at home and has no further needs and should be able to manage herself at home when she is discharged. - Exam Vitals: Temp Pulse Resp BP Pulse Ox 97.7 F 61 15 111/65 93 10/01/17 10:26 10/01/17 10:26 10/01/17 10:26 10/01/17 10:26 10/01/17 10:26 Exam: General: Patient is alert, obese no acute distress, oriented x 3 Head: atraumatic, normocephalic, Eye: normal appearance, PERRL, no scleral icterus, no conjunctival injection Neck: normal inspection, trachea midline, full ROM, no carotid bruits Chest: normal inspection, symmetric chest rise Respiratory: Good respiratory effort. Normal breath sounds. No wheezing or crackles. Cardiovascular: Regular rate and rhythm. s1 and s2 No clicks, rubs, gallops, or murmurs. No pedal edema Abdomen: Abdomen is soft, nontender. Bowel sounds are present Musculoskeletal: Spontaneously moving all extremities Skin: warm, dry, intact. Pallor Neuro: Alert oriented x 3 normal cranial nerves, no focal deficits Psych: Patient's affect is normal - Assessment and Plan (1) Complicated UTI (urinary tract infection) Current Visit: Yes Status: Acute Assessment and Plan: Acute cystitis/pyelonephritis. Continue current antibiotics. Urine cultures have been negative. We will continue Rocephin for now. Patient has not had any episodes of fever since last evening. However per urology recommendations, we will monitor her for another day. If patient does not have fever for 24 hours, plan on discharge tomorrow. (2) Hydronephrosis Current Visit: Yes Status: Acute Assessment and Plan: Due to right ureteral stone. Status post right ureteroscopy, laser lithotripsy , basket stone extraction and right ureteral stent placement. Patient is recovering well. She does have good urine output. Urology following (3) Diabetes mellitus Current Visit: Yes Status: Chronic Assessment and Plan: Blood sugars are fairly controlled. Continue current insulin regimen and diabetic diet (4) Acute on chronic renal failure Current Visit: Yes Status: Acute Assessment and Plan: Creatinine is stable. Discussed with nephrology. We will continue to monitor renal function while patient is hospitalized. Plan for outpatient follow with Dr. Hanson after discharge. (5) Bladder mass Current Visit: Yes Status: Suspected Assessment and Plan: Suspected bladder mass. Most likely bladder wall thickening related to prior radiation treatment for uterine cancer. Urology following. (6) DVT prophylaxis Current Visit: Yes Status: Acute (7) Sacral decubitus ulcer, stage III Current Visit: Yes Status: Acute Assessment and Plan: Continue local wound care per wound care recommendations. - Time Spent with Patient Total time spent is greater than 50% in coordination of care (as documented) at patient's floor/unit and/or counseling patient: Plan of Care Discussed with: absence management consultant Internal Medicine: Result - Labs CBC & Chem 7: 10/01/17 03:02 10/01/17 03:02 Labs: Short CBC 10/01/17 Range/Units 03:02 WBC 5.1 (4.3-11.1) K/mcL Hgb 8.4 L (11.5-15.4) g/dL Hct 25.7 L (35.3-44.9) % Plt Count 90 L (140-400) K/mcL Neutrophils # 3.5 (1.6-8.9) K/mcL [facility] 10/01/17 03:02 Sodium 134 L Potassium 4.5 Chloride 103 Carbon Dioxide 25 BUN 58 H Creatinine 2.47 H Glucose 134 H Calcium 8.7 - VTE Documentation of Mechanical Device: Intermittent pneumatic compression device Consult Discharge Plan - Plan Referrals: Isidro Harris MD [Partnered Physician] - (2) Hydronephrosis Qualifiers: Hydronephrosis type: other Qualified Code(s): N13.39 - Other hydronephrosis (3) Diabetes mellitus Qualifiers: Diabetes mellitus type: type 2 Diabetes mellitus detention insulin use: with detention use Diabetes mellitus complication status: with kidney complications Diabetes mellitus complication detail: with chronic kidney disease Chronic kidney disease stage: stage 4 (severe) Qualified Code(s): E11.22 - Type 2 diabetes mellitus with diabetic chronic kidney disease; N18.4 - Chronic kidney disease, stage 4 (severe); N18.4 - Chronic kidney disease, stage 4 (severe); N18.4 - Chronic kidney disease, stage 4 (severe); N18.4 - Chronic kidney disease , stage 4 (severe); Z79.4 - retirement (current) use of insulin; Z79.4 - terminal block assembler (current) use of insulin; Z79.4 - terminal block assembler (current) use of insulin; Z79.4 - retirement (current) use of insulin (4) Acute on chronic renal failure Qualifiers: Acute renal failure type: unspecified Chronic kidney disease stage: stage 3 ( moderate) Qualified Code(s): N17.9 - Acute kidney failure, unspecified; N18.3 - Chronic kidney disease, stage 3 (moderate)
[2017-10-01] MEDS: cefTRIAXone 1,000 MG in Water for inj. (sterile) 20 ML 10 ML IVP SCH (20:37)
[2017-10-01] MEDS: Insulin DETEMIR 100 UNIT/ML X5UNITS SQ SCH (20:38)
[2017-10-01] MEDS: *HR* HYDROcodone/Acet 5/325 mg TABLET PO PRN (20:50)
[2017-10-01] MEDS ORDERED: Pregabalin 75 MG CAPSULE PO SCH (21:00)
[2017-10-01 23:31] LABS: Kappa Qnt Free Light Chains 12.2 mg/dL (0.33-1.94)
[2017-10-02 00:08] LABS: Alpha 2 Globulin (PEP) 0.88 g/dL (0.48-1.05); Beta Globulin (PEP) 0.78 g/dL (0.48-1.10)
[2017-10-02 05:54] LABS: Basophils % 0.9 %; Red Cell Distribution Width 15.3 % (11.5-14.5)
[2017-10-02 05:56] LABS: Basophils # 0.1 K/mcL (0.0-0.2); Eosinophils # 0.2 K/mcL (0.0-0.6); Eosinophils % 2.9 %; Hematocrit 28.1 % (35.3-44.9); Hemoglobin 9.1 g/dL (11.5-15.4); Immature Granulocytes % 2.7 % (0-4); Lymphocytes # 1.3 K/mcL (0.6-4.6); Lymphocytes % 23.8 %; Mean Corpuscular HGB Conc 32.4 g/dL (31.6-35.5); Mean Corpuscular Hemoglobin 29.8 pg (28.0-33.3); Mean Corpuscular Volume 92.1 fL (83.0-100.0); Mean Platelet Volume 13.6 fL (9.4-12.4); Monocytes # 0.5 K/mcL (0.0-1.3); Monocytes % 9.5 %; Neutrophils # 3.3 K/mcL (1.6-8.9); Red Blood Count 3.05 M/mcL (3.82-4.97); Segmented Neutrophils % 60.2 %
[2017-10-02 05:58] LABS: Platelet Count 96 K/mcL (140-400)
[2017-10-02 06:12] LABS: Potassium 4.5 mEq/L (3.5-5.1)
[2017-10-02 07:44] LABS: IFE Reflexed IFE Done; Immunoglobulin A 246 mg/dL (68-408); Immunoglobulin G 1220 mg/dL (768-1632); Immunoglobulin M 11 mg/dL (35-263)
--- NOTE | 2017-10-02 08:16 | Urology Progress Note ---
Date of Encounter: 10/02/17 Time of Encounter: 08:14 - Assessment and Plan (1) Ureterolithiasis Current Visit: Yes Status: Acute Assessment and plan: Resolved. (2) Hydronephrosis Current Visit: Yes Status: Acute Assessment and plan: Patient is status post stent placement. Urine output is clear and sufficient. Creatinine slightly improved. Patient has outpatient follow up with nephrology. Qualifiers: Hydronephrosis type: other Qualified Code(s): N13.39 - Other hydronephrosis (3) Complicated UTI (urinary tract infection) Current Visit: Yes Status: Acute Assessment and plan: Patient is 24 hours afebrile and feeling well. Progress Note Subjective: no new complaints, feels better, pain is less, tolerating a regular diet, afebrile Narrative: Patient seen and examined sitting upright bed in no apparent distress. Patient is tolerating normal diet. Urine sufficiently draining into bedside bag. Patient reports feeling much better. Denies flank pain, fever, chills. Objective Initial Vital Signs Temp Pulse Resp BP Pulse Ox 99.3 F 105 16 158/80 94 09/26/17 19:58 09/26/17 19:58 09/26/17 19:58 09/26/17 19:58 09/26/17 19:58 - General physical appearance Present: well developed, no distress, no pain - Respiratory Present: normal expansion, normal respiratory effort - Abdomen Present: soft, non tender - Genitourinary Urine Appearance: Present: Clear - Integumentary Present: no rash, no abnormal pigmentation - Musculoskeletal Present: normal posture - Psychiatric Present: oriented to time, oriented to person, oriented to place, speech is normal - Labs 10/02/17 05:42 10/02/17 05:42 Diabetes panel 10/02/17 Range/Units 05:42 Sodium 135 L (136-145) mEq/L Potassium 4.5 (3.5-5.1) mEq/L Chloride 104 (98-107) mEq/L Carbon Dioxide 24 (23-29) mEq/L BUN 58 H (8-23) mg/dL Creatinine 2.12 H (0.60-1.20) mg/dL Glucose 121 H (70-105) mg/dL Calcium 9.0 (8.6-10.3) mg/dL Calcium panel 10/02/17 Range/Units 05:42 Calcium 9.0 (8.6-10.3) mg/dL Pituitary panel 10/02/17 Range/Units 05:42 Sodium 135 L (136-145) mEq/L Potassium 4.5 (3.5-5.1) mEq/L Chloride 104 (98-107) mEq/L Carbon Dioxide 24 (23-29) mEq/L BUN 58 H (8-23) mg/dL Creatinine 2.12 H (0.60-1.20) mg/dL Glucose 121 H (70-105) mg/dL Calcium 9.0 (8.6-10.3) mg/dL Adrenal panel 10/02/17 Range/Units 05:42 Sodium 135 L (136-145) mEq/L Potassium 4.5 (3.5-5.1) mEq/L Chloride 104 (98-107) mEq/L Carbon Dioxide 24 (23-29) mEq/L BUN 58 H (8-23) mg/dL Creatinine 2.12 H (0.60-1.20) mg/dL Glucose 121 H (70-105) mg/dL Calcium 9.0 (8.6-10.3) mg/dL - VTE Documentation of Mechanical Device: Intermittent pneumatic compression device Consult Discharge Plan - Plan Referrals: Isidro Harris MD [Partnered Physician] -
[2017-10-02] MEDS: Ascorbic Acid 500 MG TABLET PO SCH (08:26)
[2017-10-02] MEDS: Lactobacillus 1 EACH CAP.SPRINK PO SCH (08:26)
[2017-10-02] MEDS: Multivit/Ca/Min/Fe/FA 1 TAB TABLET PO SCH (08:26)
[2017-10-02] MEDS: Aspirin Enteric Coated 81 MG Tablet PO SCH (08:26)
[2017-10-02] MEDS: hydrALAZINE 10 MG TABLET PO SCH (08:26)
[2017-10-02] MEDS: Insulin LISPRO 300 UNITS/3 ML VIAL SQ SCH ×2 (08:27→12:18)
[2017-10-02] MEDS: MICONAZOLE NITRATE 57 GM TUBE TP SCH (08:27)
[2017-10-02] MEDS: Nystatin OINT 15 GM TUBE TP SCH (08:27)
[2017-10-02] MEDS: Ketoconazole 2% CRM 15 GM TUBE TP SCH (08:27)
[2017-10-02] MEDS: Triamcinolone Acet 0.1% CRM 15 GM TUBE TP SCH (08:27)
[2017-10-02] MEDS ORDERED: Pregabalin 75 MG CAPSULE PO SCH (09:00)
--- NOTE | 2017-10-02 10:48 | Discharge Summary ---
- NOTES TO OUTPATIENT PROVIDER Notes to Outpatient Provider: Patient was admitted for UTI, complicated, with s/ p stent removal and resolution of hydropnephrosis. She also had IVY on CKD, which resolved with IVF hydration. She is discharged on OMncef 300mg daily, for 6 more days to complete 14 days of therapy Orders not resulted at time of discharge: Pending orders 09/29/17 09:57 Urinalysis reflex Microscopic [URIN] Stat Date of Encounter: 10/02/17 Time of Encounter: 10:48 - Discharge Diagnosis (1) Diabetes mellitus Priority: Secondary Status: Chronic Qualifiers: Diabetes mellitus type: type 2 Diabetes mellitus intermediate manager insulin use: with mcc use Diabetes mellitus complication status: with kidney complications Diabetes mellitus complication detail: with chronic kidney disease Chronic kidney disease stage: stage 4 (severe) Qualified Code(s): E11.22 - Type 2 diabetes mellitus with diabetic chronic kidney disease; N18.4 - Chronic kidney disease, stage 4 (severe); Z79.4 - watermelon harvesting supervisor (current) use of insulin (2) DVT prophylaxis Priority: Primary Status: Resolved (3) Bladder mass Priority: Primary Status: Suspected (4) Hydronephrosis Priority: Primary Status: Resolved Qualifiers: Hydronephrosis type: other Qualified Code(s): N13.39 - Other hydronephrosis (5) Acute on chronic renal failure Priority: Primary Status: Resolved Qualifiers: Acute renal failure type: unspecified Chronic kidney disease stage: stage 3 (moderate) Qualified Code(s): N17.9 - Acute kidney failure, unspecified; N18.3 - Chronic kidney disease, stage 3 (moderate) (6) Complicated UTI (urinary tract infection) Priority: Primary Status: Acute (7) Sacral decubitus ulcer, stage III Priority: Primary Status: Acute Hospital course: Ms. Person is a 77 year old female patient with history of uterine cancer status post KRISTIN/BSO and radiation, diabetes, psoriasis, peripheral neuropathy and recurrent UTI was hospitalized here with acute complicated urinary tract infection related to presence of right ureteral calculus along with hydronephrosis and hydroureter. Patient was started on treatment with IV Rocephin based on her prior cultures. She did not have blood cultures sent in the ER. Patient was having intermittent episodes of fever. She was evaluated by urology and underwent right ureteroscopy with laser lithotripsy and basket stone extraction along with right ureteral stent placement on 09/27. She continued to have episodes of fever with her last episode being 09/30 at 7 PM with a temperature of 103. Her WBC count is normal. However given her continued bouts of fever, urology recommended continuous monitoring. She has had no fever for 48 hours. Urine cultures were negative. She did have acute kidney injury on her chronic kidney disease and nephrology follwed her throughout the hospital course. Her creatinine has stabilized and is now at baseline. She will follow up with nephrology after discharge. She does have chronic anemia related to chronic kidney disease. She did have episodes of bleeding from her decubitus ulcers while she was receiving subcutaneous heparin for DVT prophylaxis. As such heparin was stopped. Patient is awake and alert today. Seen at bedside with her spouse. She complained of constipation, which is chronic, and for which the RN had attempted a manual disimpaction, followed by an enema, she is now having BM. She is clinically stable for discharge on Omnicef 300 daily, we have stopped her current dose of Macrobid, being given possibly for porphylaxis by urology. Follow up with PCP, Urology, Npehrology. Plan of care discussed Discharge discussed with: patient, family, nurse, case management - Time Spent with Patient Total time spent providing and/or coordinating discharge services: Greater than 30 minutes - Discharge Medications Prescriptions: Cefdinir [Omnicef] 300 mg PO DAILY #6 capsule Home Medications: Amitriptyline HCl 75 mg PO HS 05/03/17 [History] Ascorbic Acid [Vitamin C] 500 mg PO DAILY 05/03/17 [History] Aspirin Enteric Coated [Aspirin EC] 81 mg PO DAILY 05/03/17 [History] Carvedilol [Coreg] 25 mg PO BID 05/03/17 [History] Cinnamon Bark [Cinnamon] 500 mg PO DAILY 05/03/17 [History] Cranberry 500 mg PO DAILY 05/03/17 [History] Fenofibrate Nanocrystallized [Triglide] 160 mg PO DAILY 05/03/17 [History] Fiber Advance 1 tab PO TID 05/03/17 [History] Insulin ASPART [NovoLOG] 16 unit SQ 0800,1200 05/03/17 [History] Insulin ASPART [NovoLOG] 20 unit SQ 1700 05/03/17 [History] Insulin Glargine,Hum.rec.anlog [Lantus Solostar] 42 unit SQ DAILY 05/03/17 [ History] Ketoconazole 2% CRM [Nizoral Cream] 1 appl TP DAILY 05/03/17 [History] Lactobacillus [Culturelle] 1 each PO DAILY 05/03/17 [History] Loratadine [Claritin] 10 mg PO DAILY 05/03/17 [History] Multivitamin [One Daily Multivitamin] 1 each PO DAILY 05/03/17 [History] Fraser-3/Dha/Epa/Fish Oil [Fish Oil 1,000 mg Softgel] 1,000 mg PO DAILY 05/03/17 [History] Potassium Gluconate 594 mg PO DAILY 05/03/17 [History] Pregabalin [Lyrica] 150 mg PO BID 05/03/17 [History] Lao Rivka 2 tab PO DAILY PRN 05/03/17 [History] Triamcinolone Acet 0.1% CRM [Kenalog] 1 appl TP DAILY 05/03/17 [History] Vitamin E Acid Succinate [Vitamin E] 400 unit PO DAILY 05/03/17 [History] hydrALAZINE [HydrALAZINE] 10 mg PO BID 05/03/17 [History] Nitrofurantoin (BID) [Macrobid] 100 mg PO DAILY 09/26/17 [History] Secukinumab [Cosentyx Pen] 300 mg SQ QMONTH 09/26/17 [History] Cefdinir [Omnicef] 300 mg PO DAILY #6 capsule 10/02/17 [Rx] Allergies/Adverse Reactions: 3 Allergy/AdvReac Type Severity Reaction Status Date / Time iodine Allergy Rash Verified 09/26/17 21:31 IVP DYE Allergy Rash Uncoded 09/26/17 19:57 Date of admission: 09/26/17 23:05 Primary care physician: Murphy Huang Jr, MD Consults: 09/27/17 09:30 Consult to Wound Care [CONS] Routine Reason for Consult: Wounds to buttocks Call Completed: Yes 09/29/17 07:40 Consult to Nephrology [CONS] Routine Consulting Provider: Kidney Kristie/PADILLA/GUY/DESI Reason for Consult: IVY on CKD Time Notified: 07:41 Call Completed: Yes Discharging clinician: Greg Cruz Anticipated date of discharge: 10/02/17 - Constitutional Vitals: Temp Pulse Resp BP Pulse Ox 97.8 F 63 14 143/86 93 10/02/17 05:45 10/02/17 05:45 10/02/17 05:45 10/02/17 05:45 10/02/17 05:45 Exam: General: Patient is alert, obese no acute distress, oriented x 3 Head: atraumatic, normocephalic, Eye: normal appearance, PERRL, no scleral icterus, no conjunctival injection Neck: normal inspection, trachea midline, full ROM, no carotid bruits Chest: normal inspection, symmetric chest rise Respiratory: Good respiratory effort. Normal breath sounds. No wheezing or crackles. Cardiovascular: Regular rate and rhythm. s1 and s2 No clicks, rubs, gallops, or murmurs. No pedal edema Abdomen: Abdomen is soft, nontender. Bowel sounds are present Musculoskeletal: Spontaneously moving all extremities Skin: warm, dry, intact. Pallor Neuro: Alert oriented x 3 normal cranial nerves, no focal deficits Psych: Patient's affect is normal - Patient Status Disposition: Home, Self-Care Condition: Good Functional capacity at discharge: independent ambulation Overall status at discharge: patient is progressing back to baseline - Discharge Instructions Follow Up With: Isidro Harris MD [Partnered Physician] - - Diet and Activity Activity: resume usual activities as tolerated Diet: low salt diet - VTE Documentation of Mechanical Device: Intermittent pneumatic compression device
[2017-10-02 10:49] VITALS: BP 135/71
--- NOTE | 2017-10-02 12:42 | Nephrology Progress Note ---
Date of Encounter: 10/02/17 Time of Encounter: 12:00 - Assessment and Plan (1) Acute kidney injury Current Visit: Yes Status: Acute SCr improving at 2.12, GFR 23 UOP noted at 1455cc in the past 24hrs Continue to avoid nephrotoxins if possible Ok to discharge from renal standpoint with appt with Dr Hanson within 2 weeks and BMP within 1 weeks (2) Ureterolithiasis Current Visit: Yes Status: Acute (3) Bladder mass Current Visit: Yes Status: Suspected (4) Hydronephrosis Current Visit: Yes Status: Acute Qualifiers: Hydronephrosis type: other Qualified Code(s): N13.39 - Other hydronephrosis (5) Complicated UTI (urinary tract infection) Current Visit: Yes Status: Acute (6) CKD (chronic kidney disease), stage IV Current Visit: Yes Status: Chronic (7) Diabetic nephropathy associated with type 2 diabetes mellitus Current Visit: Yes Status: Chronic Subjective Principal diagnosis: IVY on CKD Interval history: Pt seen and examined doing well with family at bedside. No new complaints. Have BM today, feels better afterwards. Zuniga now removed. Objective - Vital Signs Vital signs: Vital Signs Temp Pulse Resp BP Pulse Ox 10/02/17 10:48 97.6 F 62 18 135/71 96 10/02/17 05:45 97.8 F 63 14 143/86 93 10/02/17 00:28 98.9 F 64 15 131/68 92 10/01/17 20:30 99.2 F 74 15 159/67 93 10/01/17 15:24 98.8 F 91 17 134/70 97 Intake and Output 10/01/17 10/02/17 10/02/17 23:59 07:59 15:59 Intake Total 430 / 430 300 / 300 120 / 120 Output Total 650 / 650 1100 / 1100 400 / 400 Balance -220 / -220 -800 / -800 -280 / -280 Intake: IV Fluids 10 10 Rocephin 1,000 MG In Water for inj. (sterile) 10 ML @ 600 mls/ hr IVP Q24H KATELYNN Rx#:[id number] Oral 420 / 420 300 / 300 120 / 120 Output: Catheter 650 / 650 1100 / 1100 400 / 400 Other: Meal Dinner Breakfast Percent of Meal Consumed 100% 95% # Bowel Movements 0 0 Weight 91.7 kg Blood Glucose* 210 234 Patient Weight 10/02/17 23:59 Weight 91.7 kg - General Appearance General appearance: Present: well-developed, well-nourished EENT: Present: ATNC, mucous membranes moist Neck: Present: no JVD, supple Respiratory: Present: clear Cardiology: Present: no edema, normal S1, normal S2 Gastrointestinal: Present: no tenderness, no guarding, obese Integumentary: Present: warm and dry Neurologic: Present: no focal deficit Musculoskeletal: Present: no deformities Psychiatric: Present: mood/affect appropriate, cooperative - Lab 10/02/17 05:42 10/02/17 05:42 Most recent lab results Calcium 9.0 mg/dL (8.6-10.3) 10/02/17 05:42 - VTE Documentation of Mechanical Device: Intermittent pneumatic compression device Consult Discharge Plan - Plan Referrals: Isidro Harris MD [Partnered Physician] - Prescriptions: Cefdinir [Omnicef] 300 mg PO DAILY #6 capsule
[2017-10-03] MEDS ORDERED: Loratadine 10 MG TABLET PO SCH (09:00)
== END 2017-10-02 16:30 | disposition home or self-care (01) | DRG 668 ==
LOC: EMEROO 19:56 → 3ANU 19:56 → SUATTDRO 23:05
PROVIDERS: ADMIT Family Medicine; ATTEND Internal Medicine

== ENCOUNTER 2019-01-09 17:41 | Inpatient (IN) ==
[2019-01-09 20:00] LABS: Bilirubin,Urine Negative (Negative); Blood,Urine Negative (Negative); Clarity,Urine Cloudy (Clear); Color,Urine Yellow (Yellow); Glucose,Urine (UA) Normal (Normal); Ketones,Urine Negative (Negative); Leukocyte Esterase,Urine Large (Negative); Nitrite,Urine Negative (Negative); Protein,Urine Trace mg/dL (Neg-Trace); Specific Gravity,Urine 1.016 (1.010-1.025); Urobilinogen,Urine Normal (Normal)
[2019-01-09 20:09] LABS: Bacteria,Urine Few per hpf (None-Few); Hyaline Casts,Urine None Seen per lpf (None-Few); RBC,Urine 0-3 per hpf (0-3); Squamous Epithelial Cell,Urine Many per lpf (None-Few); WBC,Urine TNTC per hpf (0-3)
[2019-01-09 20:55] LABS: Hematocrit 25.3 % (35.3-44.9)
[2019-01-09 20:57] LABS: Basophils # 0.1 K/mcL (0.0-0.2); Basophils % 1.7 %; Eosinophils # 0.1 K/mcL (0.0-0.6); Hemoglobin 7.9 g/dL (11.5-15.4); Immature Granulocytes % 0.8 % (0-4); Immature Platelets 12.5 % (1.1-6.1); Lymphocytes # 1.2 K/mcL (0.6-4.6); Lymphocytes % 32.1 %; Mean Corpuscular HGB Conc 31.2 g/dL (31.6-35.5); Mean Corpuscular Hemoglobin 31.6 pg (28.0-33.3); Mean Corpuscular Volume 101.2 fL (83.0-100.0); Monocytes # 0.3 K/mcL (0.0-1.3); Monocytes % 8.3 %; Red Cell Distribution Width 16.3 % (11.5-14.5); Segmented Neutrophils % 54.1 %; White Blood Count 3.6 K/mcL (4.3-11.1)
[2019-01-09 20:59] LABS: Platelet Count 64 K/mcL (140-400)
[2019-01-09 21:15] LABS: Calcium 9.6 mg/dL (8.6-10.3); Potassium 4.5 mEq/L (3.5-5.1)
[2019-01-09] MEDS ORDERED: 0.9 % Sodium Chloride 1,000 ML IVC SCH (23:45)
[2019-01-09] MEDS ORDERED: Ondansetron 4 MG/2 ML VIAL IVP PRN (23:47)
[2019-01-09] MEDS ORDERED: Naloxone 0.4 MG/ML INJ IVP PRN (23:47)
[2019-01-10 00:41] LABS: VBG HCO3 27 mEq/L (21-27); VBG PCO2 46 mmHg (41-51); VBG PH 7.37 pH Units (7.32-7.42); VBG PO2 41 mmHg (25-50)
[2019-01-10 00:42] LABS: INR 1.5; Prothrombin Time 16.5 Seconds (9.4-12.1)
[2019-01-10 00:45] LABS: Activated Partial Thrombo Time 42.2 Seconds (26.0-36.0)
[2019-01-10 00:46] LABS: Hematocrit 23.5 % (35.3-44.9); Hemoglobin 7.4 g/dL (11.5-15.4); Mean Corpuscular HGB Conc 31.5 g/dL (31.6-35.5); Mean Corpuscular Volume 101.7 fL (83.0-100.0); Red Blood Count 2.31 M/mcL (3.82-4.97); Red Cell Distribution Width 16.2 % (11.5-14.5); White Blood Count 3.5 K/mcL (4.3-11.1)
[2019-01-10 00:50] LABS: Platelet Count 66 K/mcL (140-400)
[2019-01-10 00:55] LABS: Albumin 3.2 g/dL (3.5-5.7); Bilirubin,Total 0.4 mg/dL (0.3-1.0); Calcium 9.2 mg/dL (8.6-10.3); Globulin 3.3 g/dL (2.4-3.5); Magnesium 1.7 mg/dL (1.6-2.6); Phosphorous 3.9 mg/dL (2.7-4.5); Potassium 4.1 mEq/L (3.5-5.1); Total Protein 6.5 g/dL (6.4-8.9)
[2019-01-10 01:57] LABS: Sodium, Urine 97.9 mEq/L
[2019-01-10] MEDS ORDERED: *HR* Dextrose 50 % in Water (Syg) 50 ML SYRINGE IVP PRN ×2 (02:48→18:53)
[2019-01-10] MEDS ORDERED: D5% in Water 1,000 ML IVC PRN ×2 (02:48→18:53)
[2019-01-10] MEDS ORDERED: Dextrose Gel 15 GM/37.5 ML TUBE PO PRN ×4 (02:48→18:53)
[2019-01-10 05:26] LABS: % Iron Saturation 19 % (15-50); Iron 60 mcg/dL (50-170); Transferrin 220 mg/dL (203-362)
[2019-01-10 05:39] LABS: Ferritin 79 ng/mL (10-120)
[2019-01-10] MEDS ORDERED: *HR* Heparin 5,000 UNIT/ML VIAL SQ SCH (06:00)
[2019-01-10] MEDS: Insulin LISPRO 300 UNITS/3 ML VIAL SQ SCH ×3 (07:51→16:22)
[2019-01-10] MEDS ORDERED: carvediloL 25 MG TABLET PO SCH ×2 (08:00→09:00)
[2019-01-10] MEDS: Pregabalin 75 MG CAPSULE PO SCH ×3 (08:16→20:03)
[2019-01-10] MEDS ORDERED: Aspirin Enteric Coated 81 MG Tablet PO SCH (09:00)
[2019-01-10] MEDS ORDERED: Ascorbic Acid 500 MG TABLET PO SCH (09:00)
[2019-01-10] MEDS ORDERED: hydrALAZINE 10 MG TABLET PO SCH (09:00)
[2019-01-10] MEDS ORDERED: Ondansetron 4 MG/2 ML VIAL ONE (16:27)
[2019-01-10] MEDS ORDERED: Lidocaine -MPF 2% 2 ML VIAL ONE (16:27)
[2019-01-10] MEDS ORDERED: *HR* FentaNYL (PF) 100 MCG/2 ML VIAL ONE (16:27)
[2019-01-10] MEDS ORDERED: Dexamethasone 4 MG/ML VIAL ONE (16:27)
[2019-01-10] MEDS ORDERED: cefTRIAXone 1,000 MG in Water for inj. (sterile) 10 ML IVP ONE ×2 (16:38→18:53)
[2019-01-10] MEDS ORDERED: Isovue-300 50ML VIAL ONE (16:47)
[2019-01-10] MEDS ORDERED: Lidocaine -MPF 4% 5 ML AMPUL ONE (16:56)
[2019-01-10] MEDS ORDERED: carvediloL 6.25 MG TABLET PO SCH (17:00)
[2019-01-10] MEDS ORDERED: *HR* Phenylephrine 10 MG/ML VIAL ONE (17:27)
[2019-01-10] MEDS ORDERED: EPHEDrine 50 MG/ML VIAL ONE (17:40)
[2019-01-10] MEDS ORDERED: Naloxone 0.4 MG/ML INJ IVP PRN (18:53)
[2019-01-10] MEDS ORDERED: Ondansetron 4 MG/2 ML VIAL IVP PRN (18:53)
[2019-01-10] MEDS: hydrALAZINE 10 MG TABLET PO SCH (20:03)
[2019-01-11 06:12] LABS: Hematocrit 21.1 % (35.3-44.9); Hemoglobin 6.7 g/dL (11.5-15.4); Immature Platelets 16.4 % (1.1-6.1); Mean Corpuscular HGB Conc 31.8 g/dL (31.6-35.5); Mean Corpuscular Hemoglobin 31.5 pg (28.0-33.3); Mean Corpuscular Volume 99.1 fL (83.0-100.0); Platelet Count 66 K/mcL (140-400); Red Blood Count 2.13 M/mcL (3.82-4.97); Red Cell Distribution Width 16.4 % (11.5-14.5); White Blood Count 6.3 K/mcL (4.3-11.1)
[2019-01-11 06:25] LABS: Calcium 8.3 mg/dL (8.6-10.3); Potassium 4.9 mEq/L (3.5-5.1)
[2019-01-11] MEDS ORDERED: Fenofibrate 54 MG TABLET PO SCH (09:00)
[2019-01-11] MEDS ORDERED: Lactobacillus 1 EACH CAP.SPRINK PO SCH (09:00)
[2019-01-11] MEDS: Insulin LISPRO 300 UNITS/3 ML VIAL SQ SCH ×3 (09:00→17:20)
[2019-01-11] MEDS ORDERED: Loratadine 10 MG TABLET PO SCH (09:00)
[2019-01-11] MEDS: Pregabalin 75 MG CAPSULE PO SCH ×3 (09:11→19:44)
[2019-01-11] MEDS: Fenofibrate 54 MG TABLET PO SCH (09:12)
[2019-01-11] MEDS: carvediloL 6.25 MG TABLET PO SCH ×2 (09:12→17:17)
[2019-01-11] MEDS: Lactobacillus 1 EACH CAP.SPRINK PO SCH (09:12)
[2019-01-11] MEDS: hydrALAZINE 10 MG TABLET PO SCH ×2 (09:12→19:43)
[2019-01-11] MEDS: Ascorbic Acid 500 MG TABLET PO SCH (09:12)
[2019-01-11] MEDS: Loratadine 10 MG TABLET PO SCH (09:12)
[2019-01-11] MEDS: Aspirin Enteric Coated 81 MG Tablet PO SCH (09:12)
[2019-01-11] MEDS ORDERED: 0.9 % Sodium Chloride 250 ML ONE (12:11)
[2019-01-12 07:36] LABS: Hemoglobin 7.6 g/dL (11.5-15.4); Immature Platelets 14.6 % (1.1-6.1); Mean Corpuscular Hemoglobin 31.7 pg (28.0-33.3); Mean Corpuscular Volume 95.8 fL (83.0-100.0); Red Cell Distribution Width 16.1 % (11.5-14.5); White Blood Count 3.5 K/mcL (4.3-11.1)
[2019-01-12 07:49] LABS: Platelet Count 55 K/mcL (140-400)
[2019-01-12 07:54] LABS: Calcium 8.2 mg/dL (8.6-10.3); Potassium 4.1 mEq/L (3.5-5.1)
[2019-01-12] MEDS: Insulin LISPRO 300 UNITS/3 ML VIAL SQ SCH ×3 (09:30→17:04)
[2019-01-12] MEDS: Lactobacillus 1 EACH CAP.SPRINK PO SCH (09:42)
[2019-01-12] MEDS: Aspirin Enteric Coated 81 MG Tablet PO SCH (09:43)
[2019-01-12] MEDS: Loratadine 10 MG TABLET PO SCH (09:43)
[2019-01-12] MEDS: carvediloL 6.25 MG TABLET PO SCH ×2 (09:43→17:06)
[2019-01-12] MEDS: Ascorbic Acid 500 MG TABLET PO SCH (09:43)
[2019-01-12] MEDS: Pregabalin 75 MG CAPSULE PO SCH ×3 (09:43→22:09)
[2019-01-12] MEDS: hydrALAZINE 10 MG TABLET PO SCH ×2 (09:43→22:09)
[2019-01-12] MEDS: Fenofibrate 54 MG TABLET PO SCH (09:44)
[2019-01-12] MEDS ORDERED: 0.9 % Sodium Chloride 1,000 ML IVC SCH (09:45)
[2019-01-13] MEDS ORDERED: tiZANidine 4 MG TABLET PO ONE (00:43)
[2019-01-13 04:30] LABS: Hematocrit 22.2 % (35.3-44.9); Hemoglobin 7.1 g/dL (11.5-15.4)
[2019-01-13 04:40] LABS: Calcium 7.8 mg/dL (8.6-10.3)
[2019-01-13] MEDS: Insulin LISPRO 300 UNITS/3 ML VIAL SQ SCH ×3 (07:51→16:44)
[2019-01-13] MEDS ORDERED: 0.9 % Sodium Chloride 250 ML ONE (09:01)
[2019-01-13] MEDS: Ascorbic Acid 500 MG TABLET PO SCH (09:17)
[2019-01-13] MEDS: carvediloL 6.25 MG TABLET PO SCH ×2 (09:17→17:54)
[2019-01-13] MEDS: Lactobacillus 1 EACH CAP.SPRINK PO SCH (09:17)
[2019-01-13] MEDS: Aspirin Enteric Coated 81 MG Tablet PO SCH (09:18)
[2019-01-13] MEDS: Pregabalin 75 MG CAPSULE PO SCH ×3 (09:18→20:57)
[2019-01-13] MEDS: Loratadine 10 MG TABLET PO SCH (09:18)
[2019-01-13] MEDS: hydrALAZINE 10 MG TABLET PO SCH ×2 (09:20→20:57)
[2019-01-14 04:59] LABS: Basophils % 1.2 %; Red Cell Distribution Width 16.8 % (11.5-14.5)
[2019-01-14 05:01] LABS: Basophils # 0.1 K/mcL (0.0-0.2); Eosinophils # 0.2 K/mcL (0.0-0.6); Eosinophils % 4.6 %; Hematocrit 27.5 % (35.3-44.9); Hemoglobin 9.1 g/dL (11.5-15.4); Immature Granulocytes % 0.7 % (0-4); Immature Platelets 12.9 % (1.1-6.1); Lymphocytes # 1.3 K/mcL (0.6-4.6); Lymphocytes % 31.1 %; Mean Corpuscular HGB Conc 33.1 g/dL (31.6-35.5); Mean Corpuscular Hemoglobin 31.1 pg (28.0-33.3); Mean Corpuscular Volume 93.9 fL (83.0-100.0); Monocytes # 0.4 K/mcL (0.0-1.3); Monocytes % 9.2 %; Neutrophils # 2.2 K/mcL (1.6-8.9); Red Blood Count 2.93 M/mcL (3.82-4.97); Segmented Neutrophils % 53.2 %; White Blood Count 4.1 K/mcL (4.3-11.1)
[2019-01-14 05:11] LABS: Platelet Count 66 K/mcL (140-400)
[2019-01-14 05:20] LABS: Calcium 8.1 mg/dL (8.6-10.3)
[2019-01-14] MEDS: Insulin LISPRO 300 UNITS/3 ML VIAL SQ SCH ×3 (07:42→16:37)
[2019-01-14] MEDS: Aspirin Enteric Coated 81 MG Tablet PO SCH (08:20)
[2019-01-14] MEDS: Loratadine 10 MG TABLET PO SCH (08:20)
[2019-01-14] MEDS: Ascorbic Acid 500 MG TABLET PO SCH (08:20)
[2019-01-14] MEDS: hydrALAZINE 10 MG TABLET PO SCH ×2 (08:20→20:36)
[2019-01-14] MEDS: Lactobacillus 1 EACH CAP.SPRINK PO SCH (08:20)
[2019-01-14] MEDS: carvediloL 6.25 MG TABLET PO SCH ×2 (08:20→16:57)
[2019-01-14] MEDS: Pregabalin 75 MG CAPSULE PO SCH ×3 (08:21→20:36)
[2019-01-14] MEDS ORDERED: FLU Vac QV 19-20 (6Month+)/PF 0.5 ML SYRINGE IM ONE (16:07)
[2019-01-15 07:20] VITALS: BP 148/75
[2019-01-15] MEDS: Insulin LISPRO 300 UNITS/3 ML VIAL SQ SCH (07:26)
[2019-01-15 07:55] LABS: Hematocrit 28.4 % (35.3-44.9); Hemoglobin 9.5 g/dL (11.5-15.4)
[2019-01-15 08:13] LABS: Calcium 8.4 mg/dL (8.6-10.3)
[2019-01-15] MEDS: hydrALAZINE 10 MG TABLET PO SCH (08:25)
[2019-01-15] MEDS: Pregabalin 75 MG CAPSULE PO SCH (08:25)
[2019-01-15] MEDS: Aspirin Enteric Coated 81 MG Tablet PO SCH (08:25)
[2019-01-15] MEDS: Loratadine 10 MG TABLET PO SCH (08:25)
[2019-01-15] MEDS: Lactobacillus 1 EACH CAP.SPRINK PO SCH (08:25)
[2019-01-15] MEDS: Ascorbic Acid 500 MG TABLET PO SCH (08:25)
[2019-01-15] MEDS: carvediloL 6.25 MG TABLET PO SCH (08:25)
== END 2019-01-15 11:09 | disposition home or self-care (01) | DRG 660 ==
LOC: EMEROOARM 17:41 → 2ANU 17:41 → SUATTDRO 22:24 → 2ANU 23:35 → SUATTDRO 01-10 15:00
PROVIDERS: ADMIT Internal Medicine; ATTEND Internal Medicine

== ENCOUNTER 2019-02-05 09:41 | Observation (INO) ==
[2019-02-05 10:56] LABS: Bilirubin,Urine Small (Negative); Blood,Urine Large (Negative); Clarity,Urine Clear (Clear); Color,Urine Yellow (Yellow); Glucose,Urine (UA) Normal (Normal); Ketones,Urine Negative (Negative); Leukocyte Esterase,Urine Large (Negative); Nitrite,Urine Negative (Negative); PH,Urine 5.5 pH Units (5.0-8.0); Protein,Urine >=300 mg/dL (Neg-Trace); Urobilinogen,Urine Normal (Normal)
[2019-02-05 11:01] LABS: RBC,Urine 50-100 per hpf (0-3)
[2019-02-05 11:02] LABS: Bacteria,Urine Moderate per hpf (None-Few); Squamous Epithelial Cell,Urine Few per lpf (None-Few)
[2019-02-05 11:12] LABS: Monocytes % 7.8 %
[2019-02-05 11:14] LABS: Basophils % 0.8 %; Eosinophils # 0.1 K/mcL (0.0-0.6); Eosinophils % 2.8 %; Hematocrit 23.4 % (35.3-44.9); Hemoglobin 7.5 g/dL (11.5-15.4); Immature Granulocytes % 0.6 % (0-4); Immature Platelets 14.1 % (1.1-6.1); Lymphocytes # 0.8 K/mcL (0.6-4.6); Lymphocytes % 23.2 %; Mean Corpuscular HGB Conc 32.1 g/dL (31.6-35.5); Mean Corpuscular Hemoglobin 31.8 pg (28.0-33.3); Mean Corpuscular Volume 99.2 fL (83.0-100.0); Monocytes # 0.3 K/mcL (0.0-1.3); Neutrophils # 2.3 K/mcL (1.6-8.9); Red Blood Count 2.36 M/mcL (3.82-4.97); Red Cell Distribution Width 17.1 % (11.5-14.5); Segmented Neutrophils % 64.8 %; White Blood Count 3.6 K/mcL (4.3-11.1)
[2019-02-05 11:31] LABS: BUN/Creatinine Ratio 19 (6-26); Blood Urea Nitrogen 47 mg/dL (8-23); Calcium 10.2 mg/dL (8.6-10.3); Carbon Dioxide 26 mEq/L (23-29); Chloride 105 mEq/L (98-107); Glucose 111 mg/dL (70-105); Magnesium 1.7 mg/dL (1.6-2.6); Osmolality,Calculated 303 (280-300); Potassium 4.4 mEq/L (3.5-5.1); Sodium 140 mEq/L (136-145); Troponin I < 0.03 ng/mL (< 0.04); eGFR For African Americans 23 (> 60); eGFR For Non-African Americans 19 (> 60)
[2019-02-05 11:41] LABS: Platelet Count 84 K/mcL (140-400)
[2019-02-05 11:43] LABS: Thyroid Stimulating Hormone 2.709 mcIU/mL (0.340-5.600)
[2019-02-05 11:44] LABS: Platelet Estimate Decreased (Normal)
[2019-02-05] MEDS ORDERED: Naloxone 0.4 MG/ML INJ IVP PRN (12:37)
[2019-02-05] MEDS ORDERED: Ondansetron ODT 4 MG TAB.RAPDIS SL PRN (12:37)
[2019-02-05] MEDS ORDERED: Ondansetron 4 MG/2 ML VIAL IVP PRN (12:37)
[2019-02-05 13:18] LABS: Phosphorous 3.6 mg/dL (2.7-4.5)
[2019-02-05] MEDS ORDERED: Ampicillin 2 GM in 0.9 % Sodium Chloride Mini Bag 100 ML IVPB SCH (13:29)
[2019-02-05] MEDS ORDERED: *HR* Dextrose 50 % in Water (Syg) 50 ML SYRINGE IVP PRN (13:49)
[2019-02-05] MEDS ORDERED: Dextrose Gel 15 GM/37.5 ML TUBE PO PRN ×2 (13:49)
[2019-02-05] MEDS ORDERED: D5% in Water 1,000 ML IVC PRN (13:49)
[2019-02-05] MEDS ORDERED: Pregabalin 50 MG CAPSULE PO SCH (15:00)
[2019-02-05] MEDS: Ampicillin 2 GM in 0.9 % Sodium Chloride Mini Bag 100 ML IVPB SCH (15:31)
[2019-02-05] MEDS ORDERED: 0.9 % Sodium Chloride 250 ML ONE ×2 (16:23→22:21)
[2019-02-05] MEDS: carvediloL 6.25 MG TABLET PO SCH (16:28)
[2019-02-05] MEDS: Pregabalin 75 MG CAPSULE PO SCH ×2 (16:28→22:00)
[2019-02-05] MEDS ORDERED: Insulin DETEMIR 100 UNIT/ML X5UNITS SQ SCH (21:00)
[2019-02-05] MEDS ORDERED: NON-FORMULARY MEDICATION 1 EACH EACH (Carvedilol [Carvedilol] 12.5 MG) PO SCH (21:00)
[2019-02-06] MEDS: Ampicillin 2 GM in 0.9 % Sodium Chloride Mini Bag 100 ML IVPB SCH ×2 (01:21→06:47)
[2019-02-06 05:36] LABS: Red Cell Distribution Width 17.2 % (11.5-14.5)
[2019-02-06 05:38] LABS: Hemoglobin 9.4 g/dL (11.5-15.4); Immature Platelets 13.3 % (1.1-6.1); Mean Corpuscular HGB Conc 32.4 g/dL (31.6-35.5); Mean Corpuscular Hemoglobin 31.3 pg (28.0-33.3); Mean Corpuscular Volume 96.7 fL (83.0-100.0); Mean Platelet Volume 14.4 fL (9.4-12.4); White Blood Count 3.8 K/mcL (4.3-11.1)
[2019-02-06 05:45] LABS: Calcium 9.5 mg/dL (8.6-10.3); Potassium 4.4 mEq/L (3.5-5.1)
[2019-02-06 07:14] VITALS: BP 156/74
[2019-02-06] MEDS ORDERED: Aspirin Enteric Coated 81 MG Tablet PO SCH (09:00)
[2019-02-06] MEDS ORDERED: Fenofibrate 54 MG TABLET PO SCH (09:00)
[2019-02-06] MEDS ORDERED: Loratadine 10 MG TABLET PO SCH (09:00)
[2019-02-06] MEDS ORDERED: POTASSIUM GLUCONATE PO SCH (09:00)
[2019-02-06] MEDS: carvediloL 6.25 MG TABLET PO SCH (09:19)
[2019-02-06] MEDS: Pregabalin 75 MG CAPSULE PO SCH (09:20)
== END 2019-02-06 10:45 | disposition home or self-care (01) ==
LOC: 2ANU 09:41 → EMEROOARM 09:41 → SUATTDRO 13:42 → 2ANU 14:15
PROVIDERS: ADMIT Internal Medicine; ATTEND Internal Medicine

== ENCOUNTER 2019-02-27 17:06 | Inpatient (IN) ==
[2019-02-27 18:10] LABS: Basophils % 0.6 %; INR 1.5; Immature Platelets 16.7 % (1.1-6.1); Mean Corpuscular Hemoglobin 31.5 pg (28.0-33.3)
[2019-02-27 18:13] LABS: Activated Partial Thrombo Time 41.8 Seconds (26.0-36.0)
[2019-02-27 18:24] LABS: Eosinophils % 0.3 %; Hematocrit 33.2 % (35.3-44.9); Hemoglobin 10.6 g/dL (11.5-15.4); Lymphocytes # 0.6 K/mcL (0.6-4.6); Lymphocytes % 8.5 %; Mean Corpuscular HGB Conc 31.9 g/dL (31.6-35.5); Mean Corpuscular Volume 98.8 fL (83.0-100.0); Monocytes # 0.5 K/mcL (0.0-1.3); Monocytes % 7.6 %; Neutrophils # 5.7 K/mcL (1.6-8.9); Red Blood Count 3.36 M/mcL (3.82-4.97); Red Cell Distribution Width 16.1 % (11.5-14.5)
[2019-02-27 18:25] LABS: Calcium 11.7 mg/dL (8.6-10.3); Potassium 4.6 mEq/L (3.5-5.1); Troponin I 0.03 ng/mL (< 0.04)
[2019-02-27 18:49] LABS: Platelet Count 70 K/mcL (140-400)
[2019-02-27 19:23] LABS: Platelet Estimate Marked Decrease (Normal)
[2019-02-27 20:01] LABS: Bilirubin,Urine Negative (Negative); Blood,Urine Moderate (Negative); Clarity,Urine Cloudy (Clear); Color,Urine Yellow (Yellow); Glucose,Urine (UA) Normal (Normal); Ketones,Urine Negative (Negative); Leukocyte Esterase,Urine Large (Negative); Nitrite,Urine Positive (Negative); Protein,Urine 30 mg/dL (Neg-Trace); Specific Gravity,Urine 1.015 (1.010-1.025); Urobilinogen,Urine Normal (Normal)
[2019-02-27 20:04] LABS: Squamous Epithelial Cell,Urine Many per lpf (None-Few); WBC,Urine TNTC per hpf (0-3)
[2019-02-27] MEDS ORDERED: Ampicillin 500 MG in 0.9 % Sodium Chloride Mini Bag 100 ML IVPB ONE (20:33)
[2019-02-27 21:24] LABS: Bacteria,Urine Many per hpf (None-Few); Hyaline Casts,Urine None Seen per lpf (None-Few)
[2019-02-28] MEDS ORDERED: Naloxone 0.4 MG/ML INJ IVP PRN ×2 (00:51→00:54)
[2019-02-28] MEDS ORDERED: D5% in Water 1,000 ML IVC PRN (00:54)
[2019-02-28] MEDS ORDERED: Dextrose Gel 15 GM/37.5 ML TUBE PO PRN ×2 (00:54)
[2019-02-28] MEDS ORDERED: *HR* Dextrose 50 % in Water (Syg) 50 ML SYRINGE IVP PRN (00:54)
[2019-02-28] MEDS: Insulin DETEMIR 100 UNIT/ML X5UNITS SQ SCH ×2 (01:59→21:12)
[2019-02-28] MEDS ORDERED: cefTRIAXone 1,000 MG in 0.9 % Sodium Chloride Mini Bag 100 ML IVPB ONE (02:00)
[2019-02-28 04:35] LABS: Eosinophils % 0.1 %; Hemoglobin 10.4 g/dL (11.5-15.4)
[2019-02-28 04:37] LABS: Basophils % 0.4 %; Hematocrit 31.5 % (35.3-44.9); Immature Granulocytes % 1.1 % (0-4); Immature Platelets 16.7 % (1.1-6.1); Lymphocytes # 0.6 K/mcL (0.6-4.6); Lymphocytes % 8.7 %; Mean Corpuscular Hemoglobin 31.2 pg (28.0-33.3); Mean Corpuscular Volume 94.6 fL (83.0-100.0); Monocytes # 0.5 K/mcL (0.0-1.3); Monocytes % 6.2 %; Neutrophils # 6.1 K/mcL (1.6-8.9); Red Blood Count 3.33 M/mcL (3.82-4.97); Retculocyte # 0.04 M/mcL (0.05-0.10); Reticulocyte % 1.1 % (1.6-2.8); Segmented Neutrophils % 83.5 %; White Blood Count 7.3 K/mcL (4.3-11.1)
[2019-02-28 04:53] LABS: Platelet Count 55 K/mcL (140-400)
[2019-02-28 04:59] LABS: Albumin 3.1 g/dL (3.5-5.7); Albumin/Globulin Ratio 0.9 (1.1-2.2); Bilirubin,Total 0.6 mg/dL (0.3-1.0); Calcium 10.9 mg/dL (8.6-10.3); Globulin 3.3 g/dL (2.4-3.5); Magnesium 1.5 mg/dL (1.6-2.6); Phosphorous 2.8 mg/dL (2.7-4.5); Potassium 3.9 mEq/L (3.5-5.1); Total Protein 6.4 g/dL (6.4-8.9); Troponin I 0.04 ng/mL (< 0.04)
[2019-02-28] MEDS: Insulin LISPRO 300 UNITS/3 ML VIAL SQ SCH ×3 (08:06→17:02)
[2019-02-28] MEDS: carvediloL 6.25 MG TABLET PO SCH ×2 (08:06→17:02)
[2019-02-28] MEDS: Pregabalin 75 MG CAPSULE PO SCH ×2 (08:06→18:46)
[2019-02-28 08:53] LABS: Estimated Average Glucose 88 mg/dl
[2019-02-28] MEDS ORDERED: Magnesium Oxide 400 MG TABLET PO ONE (09:20)
[2019-02-28 11:47] LABS: % Iron Saturation 7 % (15-50); Iron 18 mcg/dL (50-170); Transferrin 181 mg/dL (203-362)
[2019-02-28] MEDS: Ampicillin 1,000 MG in 0.9 % Sodium Chloride Mini Bag 100 ML IVPB SCH ×3 (13:36→23:11)
[2019-02-28] MEDS ORDERED: Ferumoxytol 510 MG in 0.9 % Sodium Chloride 100 ML IVPB ONE (15:52)
[2019-03-01] MEDS: Ampicillin 1,000 MG in 0.9 % Sodium Chloride Mini Bag 100 ML IVPB SCH ×4 (05:25→23:25)
[2019-03-01] MEDS ORDERED: *HR* Propofol 200 MG/20 ML VIAL IVP ONE (07:13)
[2019-03-01] MEDS ORDERED: Ondansetron 4 MG/2 ML VIAL ONE (07:13)
[2019-03-01] MEDS ORDERED: Dexamethasone 4 MG/ML VIAL ONE (07:13)
[2019-03-01] MEDS ORDERED: Lidocaine -MPF 2% 2 ML VIAL ONE (07:13)
[2019-03-01] MEDS ORDERED: *HR* FentaNYL (PF) 100 MCG/2 ML VIAL ONE (07:13)
[2019-03-01] MEDS ORDERED: *HR* OxyCODONE Immed Rel 5 MG TABLET PO PRN (07:50)
[2019-03-01] MEDS ORDERED: *HR* HYDROmorphone (PF) 1 MG/ML SYRINGE IVP PRN (07:50)
[2019-03-01] MEDS ORDERED: Ondansetron 4 MG/2 ML VIAL IVP ONE (07:50)
[2019-03-01] MEDS ORDERED: Isovue-300 50ML VIAL ONE (07:52)
[2019-03-01] MEDS: Insulin LISPRO 300 UNITS/3 ML VIAL SQ SCH ×3 (09:00→17:17)
[2019-03-01] MEDS ORDERED: cefTRIAXone 1,000 MG in Water for inj. (sterile) 10 ML IVP SCH (09:00)
[2019-03-01] MEDS ORDERED: Pregabalin 75 MG CAPSULE PO SCH (09:00)
[2019-03-01] MEDS ORDERED: *HR* Dextrose 50 % in Water (Syg) 50 ML SYRINGE IVP PRN (09:41)
[2019-03-01] MEDS ORDERED: D5% in Water 1,000 ML IVC PRN (09:41)
[2019-03-01] MEDS ORDERED: Naloxone 0.4 MG/ML INJ IVP PRN (09:41)
[2019-03-01] MEDS ORDERED: Dextrose Gel 15 GM/37.5 ML TUBE PO PRN ×2 (09:41)
[2019-03-01 11:21] LABS: Basophils # 0.1 K/mcL (0.0-0.2); Basophils % 1.3 %; Eosinophils # 0.1 K/mcL (0.0-0.6); Eosinophils % 2.9 %; Hematocrit 31.2 % (35.3-44.9); Hemoglobin 10.2 g/dL (11.5-15.4); Immature Granulocytes % 1.3 % (0-4); Lymphocytes # 0.5 K/mcL (0.6-4.6); Lymphocytes % 11.9 %; Mean Corpuscular HGB Conc 32.7 g/dL (31.6-35.5); Mean Corpuscular Hemoglobin 31.5 pg (28.0-33.3); Mean Corpuscular Volume 96.3 fL (83.0-100.0); Monocytes # 0.2 K/mcL (0.0-1.3); Platelet Count 66 K/mcL (140-400); Red Blood Count 3.24 M/mcL (3.82-4.97); Red Cell Distribution Width 16.1 % (11.5-14.5); Segmented Neutrophils % 77.6 %; White Blood Count 3.8 K/mcL (4.3-11.1)
[2019-03-01 11:22] LABS: Platelet Estimate Decreased (Normal)
[2019-03-01 11:30] LABS: INR 1.4; Prothrombin Time 16.3 Seconds (9.4-12.1)
[2019-03-01 11:33] LABS: Calcium 10.2 mg/dL (8.6-10.3)
[2019-03-01] MEDS: carvediloL 6.25 MG TABLET PO SCH (18:08)
[2019-03-01] MEDS: Insulin DETEMIR 100 UNIT/ML X5UNITS SQ SCH (20:52)
[2019-03-02] MEDS: Ampicillin 1,000 MG in 0.9 % Sodium Chloride Mini Bag 100 ML IVPB SCH ×3 (05:22→19:01)
[2019-03-02] MEDS: Insulin LISPRO 300 UNITS/3 ML VIAL SQ SCH ×3 (08:18→19:00)
[2019-03-02] MEDS ORDERED: cefTRIAXone 1,000 MG in Water for inj. (sterile) 10 ML IVP SCH (09:00)
[2019-03-02] MEDS: carvediloL 6.25 MG TABLET PO SCH ×2 (09:41→18:59)
[2019-03-02] MEDS: Pregabalin 75 MG CAPSULE PO SCH (09:41)
[2019-03-02 10:04] LABS: Immature Granulocytes % 0.9 % (0-4); Red Cell Distribution Width 16.1 % (11.5-14.5)
[2019-03-02 10:05] LABS: INR 1.3; Prothrombin Time 14.4 Seconds (9.4-12.1)
[2019-03-02 10:06] LABS: Basophils # 0.1 K/mcL (0.0-0.2); Basophils % 1.4 %; Eosinophils # 0.2 K/mcL (0.0-0.6); Eosinophils % 4.6 %; Hematocrit 33.1 % (35.3-44.9); Hemoglobin 10.8 g/dL (11.5-15.4); Immature Platelets 18.6 % (1.1-6.1); Lymphocytes # 1.3 K/mcL (0.6-4.6); Lymphocytes % 30.6 %; Mean Corpuscular HGB Conc 32.6 g/dL (31.6-35.5); Mean Corpuscular Hemoglobin 31.2 pg (28.0-33.3); Mean Corpuscular Volume 95.7 fL (83.0-100.0); Mean Platelet Volume 14.6 fL (9.4-12.4); Monocytes # 0.3 K/mcL (0.0-1.3); Monocytes % 7.2 %; Neutrophils # 2.4 K/mcL (1.6-8.9); Red Blood Count 3.46 M/mcL (3.82-4.97); Segmented Neutrophils % 55.3 %; White Blood Count 4.3 K/mcL (4.3-11.1)
[2019-03-02 10:16] LABS: Calcium 9.6 mg/dL (8.6-10.3)
[2019-03-02 10:21] LABS: Platelet Count 79 K/mcL (140-400); Platelet Estimate Decreased (Normal)
[2019-03-02] MEDS ORDERED: Acetaminophen 325 MG TABLET PO PRN (19:03)
[2019-03-02] MEDS: Insulin DETEMIR 100 UNIT/ML X5UNITS SQ SCH (21:27)
[2019-03-03] MEDS: Ampicillin 1,000 MG in 0.9 % Sodium Chloride Mini Bag 100 ML IVPB SCH ×2 (00:35→06:46)
[2019-03-03] MEDS ORDERED: Sennosides 8.6 MG TABLET PO PRN (02:10)
[2019-03-03 05:34] LABS: Hematocrit 27.1 % (35.3-44.9); Immature Granulocytes % 0.6 % (0-4)
[2019-03-03 05:36] LABS: Basophils % 1.2 %; Eosinophils # 0.1 K/mcL (0.0-0.6); Eosinophils % 3.6 %; Immature Platelets 15.3 % (1.1-6.1); Lymphocytes # 1.2 K/mcL (0.6-4.6); Lymphocytes % 36.5 %; Mean Corpuscular HGB Conc 33.2 g/dL (31.6-35.5); Mean Corpuscular Hemoglobin 31.5 pg (28.0-33.3); Mean Corpuscular Volume 94.8 fL (83.0-100.0); Monocytes # 0.3 K/mcL (0.0-1.3); Monocytes % 9.1 %; Neutrophils # 1.6 K/mcL (1.6-8.9); Red Blood Count 2.86 M/mcL (3.82-4.97); Red Cell Distribution Width 15.9 % (11.5-14.5); White Blood Count 3.3 K/mcL (4.3-11.1)
[2019-03-03 05:55] LABS: Calcium 8.8 mg/dL (8.6-10.3); Platelet Count 58 K/mcL (140-400); Potassium 4.2 mEq/L (3.5-5.1)
[2019-03-03] MEDS: carvediloL 6.25 MG TABLET PO SCH (08:49)
[2019-03-03] MEDS: Pregabalin 75 MG CAPSULE PO SCH (08:49)
[2019-03-03] MEDS: Insulin LISPRO 300 UNITS/3 ML VIAL SQ SCH ×2 (08:50→12:27)
[2019-03-03] MEDS ORDERED: cefTRIAXone 1,000 MG in 0.9 % Sodium Chloride Mini Bag 100 ML IVPB SCH (09:00)
[2019-03-03 11:16] VITALS: BP 144/81
[2019-03-03] MEDS ORDERED: Nystatin Ointment 15 GM TUBE TP SCH (13:00)
== END 2019-03-03 16:23 | DRG 660 ==
LOC: EMEROOARM 17:06 → 2ANU 17:06 → SUATTDRO 21:28 → 2ANU 22:07
PROVIDERS: ADMIT Internal Medicine; ATTEND Internal Medicine

== ENCOUNTER 2019-04-20 13:07 | Inpatient (IN) ==
[2019-04-20] MEDS ORDERED: Ondansetron 4 MG/2 ML VIAL IVP ONE (13:43)
[2019-04-20] MEDS ORDERED: Isovue-370 500 ML BOTTLE IVP ONE (13:43)
[2019-04-20 14:35] LABS: INR 1.5; Prothrombin Time 17.1 Seconds (9.4-12.1)
[2019-04-20 14:37] LABS: Activated Partial Thrombo Time 42.9 Seconds (26.0-36.0)
[2019-04-20 14:50] LABS: Albumin 3.7 g/dL (3.5-5.7); Albumin/Globulin Ratio 0.9 (1.1-2.2); Bilirubin,Direct 0.2 mg/dL (0.0-0.2); Bilirubin,Indirect 0.5 mg/dL (0.0-1.0); Bilirubin,Total 0.7 mg/dL (0.3-1.0); Calcium 10.7 mg/dL (8.6-10.3); Globulin 4.2 g/dL (2.4-3.5); Total Protein 7.9 g/dL (6.4-8.9); Troponin I 0.28 ng/mL (< 0.04)
[2019-04-20] MEDS ORDERED: Aspirin 325 MG TABLET PO ONE (14:52)
[2019-04-20 14:56] LABS: Bilirubin,Urine Negative (Negative); Blood,Urine Large (Negative); Clarity,Urine Turbid (Clear); Glucose,Urine (UA) Normal (Normal); Ketones,Urine Trace mg/dL (Negative); Leukocyte Esterase,Urine Large (Negative); Nitrite,Urine Negative (Negative); PH,Urine 5.5 pH Units (5.0-8.0); Protein,Urine 100 mg/dL (Neg-Trace); Specific Gravity,Urine 1.018 (1.010-1.025); Urobilinogen,Urine Normal (Normal)
[2019-04-20 14:58] LABS: Bacteria,Urine Moderate per hpf (None-Few); Squamous Epithelial Cell,Urine Many per lpf (None-Few); WBC,Urine TNTC per hpf (0-3)
[2019-04-20 15:00] LABS: Color,Urine Light-Yellow (Yellow)
[2019-04-20] MEDS ORDERED: 0.9 % Sodium Chloride 1,000 ML IVC SCH (15:00)
[2019-04-20 15:11] LABS: Transitional Epi Cells,Urine Present per hpf (None-Few)
[2019-04-20] MEDS ORDERED: cefTRIAXone 1,000 MG in Water for inj. (sterile) 10 ML IVP ONE (15:29)
[2019-04-20] MEDS ORDERED: Naloxone 0.4 MG/ML INJ IVP PRN (15:37)
[2019-04-20 15:51] LABS: Hemoglobin 10.5 g/dL (11.5-15.4)
[2019-04-20 15:53] LABS: Basophils % 0.5 %; Eosinophils # 0.1 K/mcL (0.0-0.6); Eosinophils % 0.7 %; Hematocrit 31.8 % (35.3-44.9); Immature Granulocytes % 1.2 % (0-4); Immature Platelets 19.2 % (1.1-6.1); Lymphocytes # 1.5 K/mcL (0.6-4.6); Lymphocytes % 19.8 %; Mean Corpuscular Hemoglobin 31.6 pg (28.0-33.3); Mean Corpuscular Volume 95.8 fL (83.0-100.0); Monocytes # 0.6 K/mcL (0.0-1.3); Monocytes % 8.1 %; Red Blood Count 3.32 M/mcL (3.82-4.97); Red Cell Distribution Width 16.1 % (11.5-14.5); Segmented Neutrophils % 69.7 %; White Blood Count 7.5 K/mcL (4.3-11.1)
[2019-04-20 16:20] LABS: Neutrophils # 5.2 K/mcL (1.6-8.9)
[2019-04-20 16:21] LABS: Platelet Count 90 K/mcL (140-400)
[2019-04-20] MEDS: 0.9 % Sodium Chloride 1,000 ML IVC SCH (18:13)
[2019-04-20] MEDS: *HR* Heparin 5,000 UNIT/ML VIAL SQ SCH (18:14)
[2019-04-21] MEDS ORDERED: *HR* Dextrose 50 % in Water (Syg) 50 ML SYRINGE IVP PRN (01:29)
[2019-04-21] MEDS ORDERED: D5% in Water 1,000 ML IVC PRN (01:29)
[2019-04-21] MEDS ORDERED: Dextrose Gel 15 GM/37.5 ML TUBE PO PRN ×2 (01:29)
[2019-04-21] MEDS: 0.9 % Sodium Chloride 1,000 ML IVC SCH ×4 (02:15→23:41)
[2019-04-21] MEDS: Nystatin POWDER 30 GM BOTTLE TP SCH ×4 (03:00→21:25)
[2019-04-21 04:25] LABS: Basophils % 0.8 %; Eosinophils # 0.2 K/mcL (0.0-0.6); Eosinophils % 2.9 %; Hematocrit 31.1 % (35.3-44.9); Hemoglobin 9.9 g/dL (11.5-15.4); Immature Platelets 17.4 % (1.1-6.1); Lymphocytes # 0.6 K/mcL (0.6-4.6); Lymphocytes % 12.3 %; Mean Corpuscular HGB Conc 31.8 g/dL (31.6-35.5); Mean Corpuscular Hemoglobin 31.5 pg (28.0-33.3); Mean Platelet Volume 14.5 fL (9.4-12.4); Monocytes # 0.3 K/mcL (0.0-1.3); Monocytes % 5.2 %; Neutrophils # 4.1 K/mcL (1.6-8.9); Red Blood Count 3.14 M/mcL (3.82-4.97); Red Cell Distribution Width 16.4 % (11.5-14.5); Segmented Neutrophils % 77.8 %; White Blood Count 5.2 K/mcL (4.3-11.1)
[2019-04-21 04:28] LABS: Platelet Count 92 K/mcL (140-400)
[2019-04-21 04:37] LABS: Calcium 9.5 mg/dL (8.6-10.3); Magnesium 1.6 mg/dL (1.6-2.6); Phosphorous 4.7 mg/dL (2.7-4.5); Potassium 4.6 mEq/L (3.5-5.1)
[2019-04-21] MEDS: *HR* Heparin 5,000 UNIT/ML VIAL SQ SCH (04:56)
[2019-04-21] MEDS ORDERED: *HR* Heparin 5,000 UNIT/ML VIAL IVP ONE (07:49)
[2019-04-21] MEDS ORDERED: *HR* Heparin 5,000 UNIT/ML VIAL IVP PRN ×2 (07:49)
[2019-04-21] MEDS ORDERED: Heparin 25,000 UNIT/250 ML D5W 25,000 UNIT/250 ML IV.SOLN IVC SCH (08:00)
[2019-04-21] MEDS: cefTRIAXone 1,000 MG in Water for inj. (sterile) 10 ML IVP SCH (09:26)
[2019-04-21 11:04] LABS: INR 1.7; Prothrombin Time 18.8 Seconds (9.4-12.1)
[2019-04-21 11:06] LABS: Heparin anti-factor XA UFH 1.03 IU/mL (0.30-0.70)
[2019-04-21 11:37] LABS: Red Cell Distribution Width 16.5 % (11.5-14.5)
[2019-04-21 11:39] LABS: Hemoglobin 9.8 g/dL (11.5-15.4); Immature Platelets 17.5 % (1.1-6.1); Mean Corpuscular HGB Conc 31.6 g/dL (31.6-35.5); Mean Corpuscular Hemoglobin 31.4 pg (28.0-33.3); Mean Corpuscular Volume 99.4 fL (83.0-100.0); Red Blood Count 3.12 M/mcL (3.82-4.97); White Blood Count 5.1 K/mcL (4.3-11.1)
[2019-04-21 11:50] LABS: Platelet Count 87 K/mcL (140-400)
[2019-04-21] MEDS ORDERED: Perflutren Lipid Microsphere 1.3 ML in 0.9 % Sodium Chloride 8.7 ML IVP ONE (20:37)
[2019-04-22 05:43] LABS: Red Cell Distribution Width 16.6 % (11.5-14.5)
[2019-04-22 05:45] LABS: Basophils % 0.8 %; Eosinophils # 0.2 K/mcL (0.0-0.6); Eosinophils % 5.9 %; Hematocrit 27.2 % (35.3-44.9); Hemoglobin 8.9 g/dL (11.5-15.4); Immature Granulocytes % 1.3 % (0-4); Immature Platelets 12.6 % (1.1-6.1); Lymphocytes # 1.1 K/mcL (0.6-4.6); Lymphocytes % 30.1 %; Mean Corpuscular HGB Conc 32.7 g/dL (31.6-35.5); Mean Corpuscular Hemoglobin 32.5 pg (28.0-33.3); Mean Corpuscular Volume 99.3 fL (83.0-100.0); Mean Platelet Volume 14.6 fL (9.4-12.4); Monocytes # 0.3 K/mcL (0.0-1.3); Monocytes % 6.9 %; Neutrophils # 2.1 K/mcL (1.6-8.9); Red Blood Count 2.74 M/mcL (3.82-4.97); White Blood Count 3.8 K/mcL (4.3-11.1)
[2019-04-22 05:52] LABS: Platelet Count 69 K/mcL (140-400)
[2019-04-22 06:01] LABS: Calcium 8.4 mg/dL (8.6-10.3); Magnesium 1.6 mg/dL (1.6-2.6); Phosphorous 3.4 mg/dL (2.7-4.5); Potassium 3.5 mEq/L (3.5-5.1)
[2019-04-22] MEDS: cefTRIAXone 1,000 MG in Water for inj. (sterile) 10 ML IVP SCH (09:36)
[2019-04-22] MEDS: Nystatin POWDER 30 GM BOTTLE TP SCH ×3 (09:38→20:52)
[2019-04-22] MEDS: 0.9 % Sodium Chloride 1,000 ML IVC SCH ×3 (11:35→20:51)
[2019-04-23 04:38] LABS: Mean Corpuscular Volume 99.6 fL (83.0-100.0)
[2019-04-23 04:39] LABS: White Blood Count 2.9 K/mcL (4.3-11.1)
[2019-04-23 04:40] LABS: Basophils % 1.4 %; Eosinophils # 0.1 K/mcL (0.0-0.6); Eosinophils % 4.9 %; Hematocrit 25.3 % (35.3-44.9); Immature Platelets 12.8 % (1.1-6.1); Lymphocytes % 35.2 %; Mean Corpuscular HGB Conc 31.6 g/dL (31.6-35.5); Mean Corpuscular Hemoglobin 31.5 pg (28.0-33.3); Mean Platelet Volume 14.5 fL (9.4-12.4); Monocytes # 0.3 K/mcL (0.0-1.3); Monocytes % 9.1 %; Neutrophils # 1.4 K/mcL (1.6-8.9); Red Blood Count 2.54 M/mcL (3.82-4.97); Red Cell Distribution Width 16.4 % (11.5-14.5); Segmented Neutrophils % 48.4 %
[2019-04-23 04:47] LABS: Magnesium 1.5 mg/dL (1.6-2.6); Phosphorous 2.4 mg/dL (2.7-4.5); Potassium 3.4 mEq/L (3.5-5.1)
[2019-04-23 04:49] LABS: Platelet Count 60 K/mcL (140-400)
[2019-04-23] MEDS: 0.9 % Sodium Chloride 1,000 ML IVC SCH (05:27)
[2019-04-23] MEDS: Nystatin POWDER 30 GM BOTTLE TP SCH (08:43)
[2019-04-23] MEDS: cefTRIAXone 1,000 MG in Water for inj. (sterile) 10 ML IVP SCH (08:43)
[2019-04-23] MEDS ORDERED: Multivit/Ca/Min/Fe/FA 1 TAB TABLET PO SCH (09:00)
[2019-04-23] MEDS ORDERED: lisinopriL 5 MG TABLET PO SCH (09:00)
[2019-04-23] MEDS ORDERED: carvediloL 6.25 MG TABLET PO SCH (09:00)
[2019-04-23] MEDS ORDERED: Pregabalin 75 MG CAPSULE PO SCH (09:00)
[2019-04-23] MEDS ORDERED: Loratadine 10 MG TABLET PO SCH (09:00)
[2019-04-23] MEDS: Ascorbic Acid 500 MG TABLET PO SCH ×2 (09:52→10:01)
[2019-04-23 10:28] VITALS: BP 127/75
== END 2019-04-23 13:37 | disposition home health service (06) | DRG 388 ==
LOC: EMEROOARM 13:07 → SUATTDRO 15:44 → 3ANU 15:44
PROVIDERS: ADMIT Internal Medicine; ATTEND Internal Medicine

== ENCOUNTER 2019-08-27 14:13 | Inpatient (IN) ==
[2019-08-27 14:52] LABS: Hematocrit 23.9 % (35.3-44.9); Hemoglobin 7.5 g/dL (11.5-15.4); Mean Corpuscular HGB Conc 31.4 g/dL (31.6-35.5); Mean Corpuscular Hemoglobin 31.4 pg (28.0-33.3); Red Blood Count 2.39 M/mcL (3.82-4.97); Red Cell Distribution Width 15.9 % (11.5-14.5); White Blood Count 6.9 K/mcL (4.3-11.1)
[2019-08-27 14:54] LABS: Platelet Count 80 K/mcL (140-400)
[2019-08-27] MEDS ORDERED: 0.9 % Sodium Chloride 500 ML IVC ONE (14:58)
[2019-08-27 15:08] LABS: Potassium 5.3 mEq/L (3.5-5.1)
[2019-08-27 16:01] LABS: Bacteria,Urine Few per hpf (None-Few); Bilirubin,Urine Negative (Negative); Blood,Urine Moderate (Negative); Clarity,Urine Ex.Turbid (Clear); Color,Urine Orange (Yellow); Glucose,Urine (UA) Normal (Normal); Ketones,Urine Negative (Negative); Leukocyte Esterase,Urine Large (Negative); Nitrite,Urine Positive (Negative); Protein,Urine >=300 mg/dL (Neg-Trace); RBC,Urine 50-100 per hpf (0-3); Specific Gravity,Urine 1.007 (1.010-1.025); Squamous Epithelial Cell,Urine Moderate per hpf (None-Few); Urobilinogen,Urine Normal (Normal); WBC,Urine TNTC per hpf (0-3)
[2019-08-27] MEDS ORDERED: cefTRIAXone 1,000 MG in 0.9 % Sodium Chloride Mini Bag 100 ML IVPB ONE (16:52)
[2019-08-27] MEDS ORDERED: 0.9 % Sodium Chloride 1,000 ML IVC SCH (17:30)
[2019-08-27] MEDS ORDERED: cefTRIAXone 1,000 MG in Water for inj. (sterile) 10 ML IVP ONE (17:52)
[2019-08-27] MEDS ORDERED: Acetaminophen 325 MG TABLET PO PRN (19:09)
[2019-08-27 22:09] LABS: Calcium 9.1 mg/dL (8.6-10.3)
[2019-08-27] MEDS: Cefepime HCl 1,000 MG in Water for inj. (sterile) 10 ML IVP SCH (23:52)
[2019-08-28 04:15] LABS: Basophils # 0.1 K/mcL (0.0-0.2); Basophils % 0.8 %; Eosinophils # 0.1 K/mcL (0.0-0.6); Hematocrit 27.9 % (35.3-44.9); Hemoglobin 7.8 g/dL (11.5-15.4); Immature Granulocytes % 1.1 % (0-4); Immature Platelets 16.5 % (1.1-6.1); Lymphocytes # 0.8 K/mcL (0.6-4.6); Lymphocytes % 13.6 %; Mean Corpuscular Hemoglobin 30.5 pg (28.0-33.3); Monocytes # 0.3 K/mcL (0.0-1.3); Monocytes % 5.5 %; Neutrophils # 4.8 K/mcL (1.6-8.9); Nucleated Red Blood Cells 0.3 /100 WBC (0); Platelet Count 70 K/mcL (140-400); Red Blood Count 2.56 M/mcL (3.82-4.97); Red Cell Distribution Width 16.2 % (11.5-14.5); White Blood Count 6.2 K/mcL (4.3-11.1)
[2019-08-28 04:24] LABS: Calcium 9.1 mg/dL (8.6-10.3); Potassium 4.7 mEq/L (3.5-5.1)
[2019-08-28 06:19] LABS: Hypochromasia Present (Not Present); Platelet Estimate Slight Decrease (Normal)
[2019-08-28] MEDS ORDERED: Fenofibrate 54 MG TABLET PO SCH (09:00)
[2019-08-28] MEDS: Cefepime HCl 1,000 MG in Water for inj. (sterile) 10 ML IVP SCH ×2 (09:16→21:46)
[2019-08-28] MEDS: carvediloL 6.25 MG TABLET PO SCH ×2 (09:16→16:31)
[2019-08-28] MEDS: 0.9 % Sodium Chloride 1,000 ML IVC SCH (15:30)
[2019-08-28] MEDS: Insulin LISPRO 300 UNITS/3 ML VIAL SQ SCH ×2 (16:31→21:39)
[2019-08-28 17:14] LABS: Uric Acid 7.7 mg/dL (2.3-7.6)
[2019-08-28 17:32] LABS: % Iron Saturation 10 % (15-50); Iron 24 mcg/dL (50-170); Transferrin 172 mg/dL (203-362)
[2019-08-28 17:44] LABS: Folate > 22.3 ng/mL (3.0-16.0); Vitamin B12 719 pg/mL (250-1100)
[2019-08-29 05:31] LABS: Hemoglobin 6.7 g/dL (11.5-15.4); Red Cell Distribution Width 16.2 % (11.5-14.5)
[2019-08-29 05:33] LABS: Hematocrit 21.8 % (35.3-44.9); Immature Platelets 14.7 % (1.1-6.1); Mean Corpuscular HGB Conc 30.7 g/dL (31.6-35.5); Mean Corpuscular Hemoglobin 31.2 pg (28.0-33.3); Mean Corpuscular Volume 101.4 fL (83.0-100.0); Red Blood Count 2.15 M/mcL (3.82-4.97); White Blood Count 4.4 K/mcL (4.3-11.1)
[2019-08-29 05:46] LABS: Platelet Count 77 K/mcL (140-400)
[2019-08-29 05:47] LABS: % Iron Saturation 8 % (15-50); Iron 16 mcg/dL (50-170); Transferrin 152 mg/dL (203-362)
[2019-08-29] MEDS: 0.9 % Sodium Chloride 1,000 ML IVC SCH ×2 (05:47→17:27)
[2019-08-29 05:48] LABS: Calcium 8.6 mg/dL (8.6-10.3); Potassium 4.2 mEq/L (3.5-5.1)
[2019-08-29 07:26] LABS: Protein/Creatinine Ratio,Urine 2.5 mg/mg (0.00-0.20); Sodium, Urine 91.6 mEq/L
[2019-08-29] MEDS: Insulin LISPRO 300 UNITS/3 ML VIAL SQ SCH ×4 (08:20→20:29)
[2019-08-29] MEDS: carvediloL 6.25 MG TABLET PO SCH ×2 (08:20→17:28)
[2019-08-29] MEDS: Cefepime HCl 1,000 MG in Water for inj. (sterile) 10 ML IVP SCH ×2 (08:21→20:31)
[2019-08-29] MEDS ORDERED: 0.9 % Sodium Chloride 250 ML ONE (14:22)
[2019-08-29 19:55] LABS: Hemoglobin 8.9 g/dL (11.5-15.4)
[2019-08-30 02:41] LABS: Hematocrit 27.1 % (35.3-44.9); Hemoglobin 8.4 g/dL (11.5-15.4); Immature Platelets 15.9 % (1.1-6.1); Mean Corpuscular Hemoglobin 29.7 pg (28.0-33.3); Mean Corpuscular Volume 95.8 fL (83.0-100.0); Platelet Count 72 K/mcL (140-400); Red Blood Count 2.83 M/mcL (3.82-4.97); Red Cell Distribution Width 18.4 % (11.5-14.5); White Blood Count 4.7 K/mcL (4.3-11.1)
[2019-08-30 02:58] LABS: Calcium 7.9 mg/dL (8.6-10.3); Potassium 4.1 mEq/L (3.5-5.1)
[2019-08-30] MEDS: Insulin LISPRO 300 UNITS/3 ML VIAL SQ SCH ×4 (07:46→20:32)
[2019-08-30] MEDS: Cefepime HCl 1,000 MG in Water for inj. (sterile) 10 ML IVP SCH ×2 (07:58→20:31)
[2019-08-30] MEDS: carvediloL 6.25 MG TABLET PO SCH ×2 (07:58→17:03)
[2019-08-30] MEDS ORDERED: Sennosides 8.6 MG TABLET PO ONE (20:00)
[2019-08-31 02:36] LABS: Basophils % 0.7 %; Eosinophils # 0.1 K/mcL (0.0-0.6); Eosinophils % 1.6 %; Hematocrit 25.2 % (35.3-44.9); Immature Granulocytes % 1.4 % (0-4); Immature Platelets 14.7 % (1.1-6.1); Lymphocytes # 1.1 K/mcL (0.6-4.6); Lymphocytes % 25.3 %; Mean Corpuscular HGB Conc 31.7 g/dL (31.6-35.5); Mean Corpuscular Hemoglobin 30.4 pg (28.0-33.3); Mean Corpuscular Volume 95.8 fL (83.0-100.0); Mean Platelet Volume 14.3 fL (9.4-12.4); Monocytes # 0.4 K/mcL (0.0-1.3); Neutrophils # 2.7 K/mcL (1.6-8.9); Nucleated Red Blood Cells 0.5 /100 WBC (0); Red Blood Count 2.63 M/mcL (3.82-4.97); Red Cell Distribution Width 18.3 % (11.5-14.5); White Blood Count 4.3 K/mcL (4.3-11.1)
[2019-08-31 02:38] LABS: Platelet Count 77 K/mcL (140-400)
[2019-08-31 07:43] VITALS: BP 147/73
[2019-08-31] MEDS: carvediloL 6.25 MG TABLET PO SCH (07:46)
[2019-08-31] MEDS: Cefepime HCl 1,000 MG in Water for inj. (sterile) 10 ML IVP SCH (07:47)
[2019-08-31] MEDS ORDERED: Lactulose Oral Soln 20 GM/30 ML UDC PO ONE (09:39)
[2019-08-31] MEDS: Insulin LISPRO 300 UNITS/3 ML VIAL SQ SCH (10:28)
[2019-08-31] MEDS ORDERED: Sennosides 8.6 MG TABLET PO ONE (18:31)
== END 2019-08-31 12:31 | disposition home or self-care (01) | DRG 683 ==
LOC: EMEROOARM 14:13 → 2ANU 14:13 → SUATTDRO 17:39 → 2ANU 18:38
PROVIDERS: ADMIT Internal Medicine; ATTEND Internal Medicine

== ENCOUNTER 2019-09-23 10:22 | Inpatient (IN) ==
[2019-09-23] MEDS ORDERED: Isovue-370 500 ML BOTTLE IVP ONE (10:55)
[2019-09-23 11:21] LABS: Basophils % 0.4 %; Eosinophils % 0.3 %; Red Cell Distribution Width 17.4 % (11.5-14.5)
[2019-09-23 11:22] LABS: INR 1.7; Prothrombin Time 18.9 Seconds (9.4-12.1)
[2019-09-23 11:23] LABS: Immature Granulocytes % 1.5 % (0-4); Immature Platelets 16.8 % (1.1-6.1); Lymphocytes # 1.2 K/mcL (0.6-4.6); Lymphocytes % 17.3 %; Mean Corpuscular Hemoglobin 29.6 pg (28.0-33.3); Mean Corpuscular Volume 95.4 fL (83.0-100.0); Monocytes # 0.7 K/mcL (0.0-1.3); Monocytes % 9.8 %; Neutrophils # 4.9 K/mcL (1.6-8.9); Platelet Count 118 K/mcL (140-400); Red Blood Count 3.04 M/mcL (3.82-4.97); Segmented Neutrophils % 70.7 %; White Blood Count 6.9 K/mcL (4.3-11.1)
[2019-09-23 11:25] LABS: Activated Partial Thrombo Time 43.8 Seconds (26.0-36.0)
[2019-09-23 11:36] LABS: Albumin 2.9 g/dL (3.5-5.7); Albumin/Globulin Ratio 0.7 (1.1-2.2); Bilirubin,Direct 0.2 mg/dL (0.0-0.2); Bilirubin,Indirect 0.2 mg/dL (0.0-1.0); Bilirubin,Total 0.4 mg/dL (0.3-1.0); Globulin 4.2 g/dL (2.4-3.5); Total Protein 7.1 g/dL (6.4-8.9)
[2019-09-23 11:38] LABS: BUN/Creatinine Ratio 26 (6-26); Blood Urea Nitrogen 115 mg/dL (8-23); Calcium 9.4 mg/dL (8.6-10.3); Carbon Dioxide 17 mEq/L (23-29); Chloride 97 mEq/L (98-107); Glucose 107 mg/dL (70-105); Osmolality,Calculated 297 (280-300); Potassium 5.4 mEq/L (3.5-5.1); Sodium 125 mEq/L (136-145); eGFR For African Americans 12 (> 60); eGFR For Non-African Americans 10 (> 60)
[2019-09-23 11:39] LABS: Troponin I < 0.03 ng/mL (< 0.04)
[2019-09-23] MEDS ORDERED: 0.9 % Sodium Chloride 1,000 ML IV ONE (11:41)
[2019-09-23] MEDS ORDERED: 0.9 % Sodium Chloride 1,000 ML ONE ×2 (13:57→20:55)
[2019-09-23] MEDS ORDERED: Naloxone 0.4 MG/ML INJ IVP PRN (16:01)
[2019-09-23] MEDS ORDERED: Calcium Gluconate 1gm/50mL 1 GM/50 ML BAG IVPB ONE (16:29)
[2019-09-23] MEDS ORDERED: 0.9 % Sodium Chloride 1,000 ML IVC SCH ×2 (16:30→21:15)
[2019-09-23] MEDS ORDERED: 0.9 % Sodium Chloride 250 ML IVC ONE (16:40)
[2019-09-23 17:04] LABS: ABG Base Excess -11 mEq/L (-2 to 3); ABG HCO3 15 mEq/L (21-27); ABG Oxygen Saturation 96 % (95-98); ABG PCO2 35 mmHg (35-45); ABG PH 7.26 pH Units (7.32-7.45); ABG PO2 97 mmHg (85-104); ABG TCO2 16 mEq/L (20-26)
[2019-09-23] MEDS ORDERED: 0.9 % Sodium Chloride 1,000 ML IVC ONE ×2 (17:09→20:54)
[2019-09-23 17:22] LABS: Eosinophils % 0.2 %; Immature Granulocytes % 1.2 % (0-4); Monocytes % 10.2 %; Red Cell Distribution Width 17.3 % (11.5-14.5)
[2019-09-23 17:24] LABS: Basophils % 0.2 %; Hematocrit 24.2 % (35.3-44.9); Hemoglobin 7.4 g/dL (11.5-15.4); Immature Platelets 14.9 % (1.1-6.1); Lymphocytes % 17.6 %; Mean Corpuscular HGB Conc 30.6 g/dL (31.6-35.5); Mean Corpuscular Hemoglobin 29.8 pg (28.0-33.3); Mean Corpuscular Volume 97.6 fL (83.0-100.0); Monocytes # 0.6 K/mcL (0.0-1.3); Platelet Count 84 K/mcL (140-400); Red Blood Count 2.48 M/mcL (3.82-4.97); Segmented Neutrophils % 70.6 %; White Blood Count 5.6 K/mcL (4.3-11.1)
[2019-09-23 17:35] LABS: Calcium 8.1 mg/dL (8.6-10.3); Magnesium 1.6 mg/dL (1.6-2.6); Phosphorous 6.4 mg/dL (2.7-4.5); Potassium 5.2 mEq/L (3.5-5.1)
[2019-09-23 18:30] LABS: Bilirubin,Urine Negative (Negative); Blood,Urine Moderate (Negative); Clarity,Urine Ex.Turbid (Clear); Glucose,Urine (UA) Normal (Normal); Ketones,Urine Negative (Negative); Leukocyte Esterase,Urine Large (Negative); Nitrite,Urine Negative (Negative); Protein,Urine >=300 mg/dL (Neg-Trace); Urobilinogen,Urine Normal (Normal)
[2019-09-23] MEDS ORDERED: Albumin 25% 25gram/100mL 25 GM/100 ML IV.SOLN IVPB PRN (18:39)
[2019-09-23] MEDS ORDERED: 0.9 % Sodium Chloride 250 ML IVC PRN (18:39)
[2019-09-23] MEDS ORDERED: 0.9 % Sodium Chloride 1,000 ML PRIME SCH (18:45)
[2019-09-23] MEDS ORDERED: 0.9 % Sodium Chloride 500 ML IVC ONE (18:55)
[2019-09-23 19:03] LABS: Adenovirus Not Detected (Not Detect); Bordetella Pertussis Not Detected (Not Detect); Chlamydophila pneumoniae Not Detected (Not Detect); Coronavirus 229E Not Detected (Not Detect); Coronavirus HKU1 Not Detected (Not Detect); Coronavirus NL63 Not Detected (Not Detect); Coronavirus OC43 Not Detected (Not Detect); Human Metapneumovirus Not Detected (Not Detect); Human Rhinovirus/Enterovirus Not Detected (Not Detect); Influenza A Subtype 2009 H1 Not Detected (Not Detect); Influenza B Not Detected (Not Detect); Mycoplasma pneumoniae Not Detected (Not Detect); Parainfluenza Virus 1 Not Detected (Not Detect); Parainfluenza Virus 2 Not Detected (Not Detect); Parainfluenza Virus 3 Not Detected (Not Detect); Parainfluenza Virus 4 Not Detected (Not Detect); Respiratory Syncytial Virus Not Detected (Not Detect)
[2019-09-23 19:22] LABS: Hepatitis B Surface Antibody < 3.10 mIU/mL
[2019-09-23 19:33] LABS: Hepatitis B Surface Antigen Nonreactive (Nonreactive)
[2019-09-23 20:01] LABS: Hepatitis B Core IgM Nonreactive (Nonreactive)
[2019-09-23 20:07] LABS: Color,Urine Yellow (Yellow)
[2019-09-23 20:09] LABS: WBC,Urine TNTC per hpf (0-3)
[2019-09-23] MEDS ORDERED: Cefepime HCl 1,000 MG in Water for inj. (sterile) 10 ML IVP SCH (21:00)
[2019-09-23] MEDS ORDERED: Norepinephrine 4 MG/254 ML IV.SOLN IVC SCH (23:00)
[2019-09-24 00:05] LABS: Calcium 7.9 mg/dL (8.6-10.3); Magnesium 1.5 mg/dL (1.6-2.6); Phosphorous 6.2 mg/dL (2.7-4.5); Potassium 4.7 mEq/L (3.5-5.1)
[2019-09-24 06:19] LABS: Calcium 7.6 mg/dL (8.6-10.3); Potassium 4.1 mEq/L (3.5-5.1)
[2019-09-24] MEDS ORDERED: 0.9 % Sodium Chloride 250 ML IVC PRN ×2 (06:27→13:03)
[2019-09-24] MEDS ORDERED: Naloxone 0.4 MG/ML INJ IVP PRN ×2 (06:27→13:03)
[2019-09-24] MEDS ORDERED: 0.9 % Sodium Chloride 1,000 ML IVC SCH (06:27)
[2019-09-24] MEDS ORDERED: Norepinephrine 4 MG/254 ML IV.SOLN IVC SCH (06:27)
[2019-09-24] MEDS ORDERED: Albumin 25% 25gram/100mL 25 GM/100 ML IV.SOLN IVPB PRN (06:27)
[2019-09-24] MEDS ORDERED: 0.9 % Sodium Chloride 1,000 ML PRIME SCH ×2 (06:27→13:03)
[2019-09-24] MEDS ORDERED: Isovue-370 500 ML BOTTLE IVP ONE (06:27)
[2019-09-24 06:29] LABS: Basophils % 0.2 %; Eosinophils % 0.2 %; Red Cell Distribution Width 17.2 % (11.5-14.5)
[2019-09-24 06:30] LABS: Albumin 2.2 g/dL (3.5-5.7); Phosphorous 3.8 mg/dL (2.7-4.5)
[2019-09-24 06:31] LABS: Hematocrit 24.1 % (35.3-44.9); Hemoglobin 7.7 g/dL (11.5-15.4); Immature Granulocytes % 1.3 % (0-4); Immature Platelets 16.4 % (1.1-6.1); Lymphocytes # 0.5 K/mcL (0.6-4.6); Lymphocytes % 5.6 %; Mean Corpuscular Hemoglobin 30.4 pg (28.0-33.3); Mean Corpuscular Volume 95.3 fL (83.0-100.0); Monocytes # 0.5 K/mcL (0.0-1.3); Monocytes % 5.9 %; Red Blood Count 2.53 M/mcL (3.82-4.97); Segmented Neutrophils % 86.8 %; White Blood Count 8.5 K/mcL (4.3-11.1)
[2019-09-24 06:39] LABS: Platelet Count 98 K/mcL (140-400)
[2019-09-24 06:40] LABS: Neutrophils # 7.4 K/mcL (1.6-8.9)
[2019-09-24] MEDS ORDERED: Cefepime HCl 1,000 MG in Water for inj. (sterile) 10 ML IVP SCH (09:00)
[2019-09-24] MEDS ORDERED: Ondansetron 4 MG/2 ML VIAL IVP PRN (15:50)
[2019-09-24] MEDS ORDERED: D5% in Water 1,000 ML IVC PRN (15:58)
[2019-09-24] MEDS ORDERED: Dextrose Gel 15 GM/37.5 ML TUBE PO PRN ×2 (15:58)
[2019-09-24] MEDS ORDERED: *HR* Dextrose 50 % in Water (Vial) 50 ML VIAL IVP PRN (15:58)
[2019-09-24] MEDS: Insulin LISPRO 300 UNITS/3 ML VIAL SQ SCH ×2 (16:26→20:15)
[2019-09-24] MEDS: Cefepime HCl 1,000 MG in Water for inj. (sterile) 10 ML IVP SCH (20:04)
[2019-09-25 04:02] LABS: Basophils % 0.3 %; Eosinophils # 0.1 K/mcL (0.0-0.6); Eosinophils % 0.7 %; Hemoglobin 6.8 g/dL (11.5-15.4); Immature Granulocytes % 1.1 % (0-4); Lymphocytes % 13.8 %; Mean Corpuscular HGB Conc 32.4 g/dL (31.6-35.5); Mean Corpuscular Hemoglobin 30.1 pg (28.0-33.3); Mean Corpuscular Volume 92.9 fL (83.0-100.0); Monocytes # 0.5 K/mcL (0.0-1.3); Monocytes % 6.2 %; Neutrophils # 5.8 K/mcL (1.6-8.9); Red Blood Count 2.26 M/mcL (3.82-4.97); Red Cell Distribution Width 17.5 % (11.5-14.5); Segmented Neutrophils % 77.9 %; White Blood Count 7.5 K/mcL (4.3-11.1)
[2019-09-25 04:04] LABS: Platelet Count 98 K/mcL (140-400)
[2019-09-25 04:22] LABS: Calcium 7.2 mg/dL (8.6-10.3); Potassium 4.1 mEq/L (3.5-5.1)
[2019-09-25 06:12] LABS: Hemoglobin 6.8 g/dL (11.5-15.4)
[2019-09-25 06:14] LABS: Hematocrit 20.9 % (35.3-44.9)
[2019-09-25] MEDS: Insulin LISPRO 300 UNITS/3 ML VIAL SQ SCH ×4 (07:45→19:43)
[2019-09-25 07:56] LABS: Amorphous Sediment,Urine Many per hpf (None-Few); Bilirubin,Urine Negative (Negative); Blood,Urine Moderate (Negative); Clarity,Urine Ex.Turbid (Clear); Color,Urine Orange (Yellow); Glucose,Urine (UA) Normal (Normal); Ketones,Urine Negative (Negative); Leukocyte Esterase,Urine Large (Negative); Nitrite,Urine Negative (Negative); PH,Urine 6.5 pH Units (5.0-8.0); Protein,Urine >=300 mg/dL (Neg-Trace); RBC,Urine 50-100 per hpf (0-3); Specific Gravity,Urine 1.011 (1.010-1.025); Squamous Epithelial Cell,Urine Moderate per hpf (None-Few); Urobilinogen,Urine Normal (Normal); WBC,Urine TNTC per hpf (0-3)
[2019-09-25] MEDS: Vitamin E 200 UNIT (90MG) CAPSULE PO SCH (08:10)
[2019-09-25] MEDS: Multivit/Ca/Min/Fe/FA 1 TAB TABLET PO SCH (08:10)
[2019-09-25] MEDS: Loratadine 10 MG TABLET PO SCH (08:10)
[2019-09-25] MEDS: Aspirin Enteric Coated 81 MG Tablet PO SCH (08:11)
[2019-09-25] MEDS: Ascorbic Acid 500 MG TABLET PO SCH (08:11)
[2019-09-25] MEDS: Cefepime HCl 1,000 MG in Water for inj. (sterile) 10 ML IVP SCH ×2 (08:11→20:21)
[2019-09-25] MEDS ORDERED: 0.9 % Sodium Chloride 250 ML ONE (09:04)
[2019-09-25 09:12] LABS: Sodium, Urine 85.1 mEq/L
[2019-09-25 16:21] LABS: Hemoglobin 7.9 g/dL (11.5-15.4)
[2019-09-25 16:23] LABS: Hematocrit 24.6 % (35.3-44.9)
[2019-09-26] MEDS ORDERED: Acetaminophen IV 1,000 MG/100 ML INFUS..BTL IVPB ONE (03:59)
[2019-09-26 06:50] LABS: Mean Corpuscular Volume 89.5 fL (83.0-100.0)
[2019-09-26 06:52] LABS: Basophils % 0.7 %; Eosinophils # 0.1 K/mcL (0.0-0.6); Hematocrit 25.7 % (35.3-44.9); Hemoglobin 8.4 g/dL (11.5-15.4); Immature Platelets 17.3 % (1.1-6.1); Lymphocytes # 1.3 K/mcL (0.6-4.6); Lymphocytes % 22.9 %; Mean Corpuscular HGB Conc 32.7 g/dL (31.6-35.5); Mean Corpuscular Hemoglobin 29.3 pg (28.0-33.3); Monocytes # 0.5 K/mcL (0.0-1.3); Monocytes % 7.8 %; Red Blood Count 2.87 M/mcL (3.82-4.97); Segmented Neutrophils % 66.6 %; White Blood Count 5.8 K/mcL (4.3-11.1)
[2019-09-26 06:57] LABS: Neutrophils # 3.9 K/mcL (1.6-8.9); Platelet Count 75 K/mcL (140-400)
[2019-09-26] MEDS: Insulin LISPRO 300 UNITS/3 ML VIAL SQ SCH ×4 (07:07→20:31)
[2019-09-26 07:48] LABS: Calcium 7.5 mg/dL (8.6-10.3); Potassium 4.4 mEq/L (3.5-5.1)
[2019-09-26] MEDS: Cefepime HCl 1,000 MG in Water for inj. (sterile) 10 ML IVP SCH (08:03)
[2019-09-26 08:31] LABS: Calcium 7.6 mg/dL (8.6-10.3); Potassium 3.9 mEq/L (3.5-5.1)
[2019-09-26] MEDS: Vitamin E 200 UNIT (90MG) CAPSULE PO SCH (11:13)
[2019-09-26] MEDS: Multivit/Ca/Min/Fe/FA 1 TAB TABLET PO SCH (11:14)
[2019-09-26] MEDS: Ascorbic Acid 500 MG TABLET PO SCH (11:14)
[2019-09-26] MEDS: Aspirin Enteric Coated 81 MG Tablet PO SCH (11:14)
[2019-09-26] MEDS: Lactulose Oral Soln 20 GM/30 ML UDC PO SCH ×2 (11:14→20:31)
[2019-09-26] MEDS: Loratadine 10 MG TABLET PO SCH (11:14)
[2019-09-26] MEDS: 0.9 % Sodium Chloride 1,000 ML IVC SCH (15:24)
[2019-09-26] MEDS: Sucralfate 1 GM TABLET PO SCH ×2 (16:48→20:31)
[2019-09-27] MEDS: 0.9 % Sodium Chloride 1,000 ML IVC SCH (00:57)
[2019-09-27 04:59] LABS: Basophils # 0.1 K/mcL (0.0-0.2); Basophils % 1.1 %; Eosinophils # 0.1 K/mcL (0.0-0.6); Eosinophils % 1.1 %; Hematocrit 29.1 % (35.3-44.9); Hemoglobin 8.7 g/dL (11.5-15.4); Immature Granulocytes % 1.5 % (0-4); Lymphocytes # 1.1 K/mcL (0.6-4.6); Lymphocytes % 20.7 %; Mean Corpuscular HGB Conc 29.9 g/dL (31.6-35.5); Mean Corpuscular Hemoglobin 29.8 pg (28.0-33.3); Monocytes # 0.4 K/mcL (0.0-1.3); Neutrophils # 3.7 K/mcL (1.6-8.9); Red Blood Count 2.92 M/mcL (3.82-4.97); Red Cell Distribution Width 18.8 % (11.5-14.5); Segmented Neutrophils % 68.6 %; White Blood Count 5.4 K/mcL (4.3-11.1)
[2019-09-27 05:04] LABS: Mean Corpuscular Volume 99.7 fL (83.0-100.0); Platelet Count 85 K/mcL (140-400)
[2019-09-27 05:18] LABS: Calcium 7.4 mg/dL (8.6-10.3); Potassium 3.9 mEq/L (3.5-5.1)
[2019-09-27] MEDS: Vitamin E 200 UNIT (90MG) CAPSULE PO SCH (09:41)
[2019-09-27] MEDS: Lactulose Oral Soln 20 GM/30 ML UDC PO SCH ×2 (09:41→21:04)
[2019-09-27] MEDS: Sucralfate 1 GM TABLET PO SCH ×4 (09:42→21:03)
[2019-09-27] MEDS: Multivit/Ca/Min/Fe/FA 1 TAB TABLET PO SCH (09:42)
[2019-09-27] MEDS: Loratadine 10 MG TABLET PO SCH (09:42)
[2019-09-27] MEDS: Ascorbic Acid 500 MG TABLET PO SCH (09:42)
[2019-09-27] MEDS: Cefepime HCl 1,000 MG in Water for inj. (sterile) 10 ML IVP SCH (09:44)
[2019-09-27] MEDS: Insulin LISPRO 300 UNITS/3 ML VIAL SQ SCH ×4 (09:45→21:03)
[2019-09-27] MEDS: *HR* Heparin 5,000 UNIT/ML VIAL SQ SCH ×2 (15:04→21:04)
[2019-09-27] MEDS: Acetaminophen 325 MG TABLET PO SCH (15:04)
[2019-09-28] MEDS: Acetaminophen 325 MG TABLET PO SCH ×3 (00:13→16:47)
[2019-09-28] MEDS: *HR* Heparin 5,000 UNIT/ML VIAL SQ SCH ×3 (05:19→21:18)
[2019-09-28 05:42] LABS: Immature Granulocytes % 1.4 % (0-4); Red Blood Count 2.83 M/mcL (3.82-4.97)
[2019-09-28 05:44] LABS: Basophils % 0.6 %; Eosinophils # 0.1 K/mcL (0.0-0.6); Eosinophils % 1.6 %; Hematocrit 26.2 % (35.3-44.9); Hemoglobin 8.2 g/dL (11.5-15.4); Immature Platelets 14.2 % (1.1-6.1); Lymphocytes % 26.8 %; Mean Corpuscular HGB Conc 31.3 g/dL (31.6-35.5); Mean Corpuscular Volume 92.6 fL (83.0-100.0); Monocytes # 0.4 K/mcL (0.0-1.3); Monocytes % 8.2 %; Neutrophils # 3.1 K/mcL (1.6-8.9); Red Cell Distribution Width 18.2 % (11.5-14.5); Segmented Neutrophils % 61.4 %
[2019-09-28 05:46] LABS: Lymphocytes # 1.3 K/mcL (0.6-4.6); Platelet Count 90 K/mcL (140-400)
[2019-09-28 06:02] LABS: Calcium 7.7 mg/dL (8.6-10.3); Potassium 3.7 mEq/L (3.5-5.1)
[2019-09-28 07:40] LABS: Magnesium 1.4 mg/dL (1.6-2.6)
[2019-09-28] MEDS: Vitamin E 200 UNIT (90MG) CAPSULE PO SCH (08:08)
[2019-09-28] MEDS: Ascorbic Acid 500 MG TABLET PO SCH (08:08)
[2019-09-28] MEDS: Loratadine 10 MG TABLET PO SCH (08:09)
[2019-09-28] MEDS: Multivit/Ca/Min/Fe/FA 1 TAB TABLET PO SCH (08:09)
[2019-09-28] MEDS: Lactulose Oral Soln 20 GM/30 ML UDC PO SCH ×2 (08:09→21:16)
[2019-09-28] MEDS: Sucralfate 1 GM TABLET PO SCH ×4 (08:09→21:17)
[2019-09-28] MEDS: Cefepime HCl 1,000 MG in Water for inj. (sterile) 10 ML IVP SCH (08:10)
[2019-09-28] MEDS: Insulin LISPRO 300 UNITS/3 ML VIAL SQ SCH ×4 (10:58→21:23)
[2019-09-29] MEDS: Acetaminophen 325 MG TABLET PO SCH ×3 (01:07→16:22)
[2019-09-29 03:35] LABS: Calcium 8.3 mg/dL (8.6-10.3); Potassium 3.8 mEq/L (3.5-5.1)
[2019-09-29 03:54] LABS: Hematocrit 32.4 % (35.3-44.9); Hemoglobin 9.8 g/dL (11.5-15.4); Immature Platelets 12.3 % (1.1-6.1); Mean Corpuscular HGB Conc 30.2 g/dL (31.6-35.5); Mean Corpuscular Hemoglobin 29.3 pg (28.0-33.3); Red Blood Count 3.34 M/mcL (3.82-4.97); Red Cell Distribution Width 18.6 % (11.5-14.5); White Blood Count 5.1 K/mcL (4.3-11.1)
[2019-09-29 03:55] LABS: Platelet Count 96 K/mcL (140-400)
[2019-09-29] MEDS: *HR* Heparin 5,000 UNIT/ML VIAL SQ SCH ×3 (04:29→21:58)
[2019-09-29] MEDS: Loratadine 10 MG TABLET PO SCH (08:08)
[2019-09-29] MEDS: Vitamin E 200 UNIT (90MG) CAPSULE PO SCH (08:08)
[2019-09-29] MEDS: Ascorbic Acid 500 MG TABLET PO SCH (08:08)
[2019-09-29] MEDS: Multivit/Ca/Min/Fe/FA 1 TAB TABLET PO SCH (08:08)
[2019-09-29] MEDS: Sucralfate 1 GM TABLET PO SCH ×4 (08:09→21:58)
[2019-09-29] MEDS: Lactulose Oral Soln 20 GM/30 ML UDC PO SCH ×2 (08:09→21:58)
[2019-09-29] MEDS: Cefepime HCl 1,000 MG in Water for inj. (sterile) 10 ML IVP SCH (08:09)
[2019-09-29] MEDS: Insulin LISPRO 300 UNITS/3 ML VIAL SQ SCH ×4 (09:08→21:59)
[2019-09-30] MEDS: Acetaminophen 325 MG TABLET PO SCH ×2 (00:21→08:46)
[2019-09-30 04:13] LABS: Hemoglobin 8.6 g/dL (11.5-15.4)
[2019-09-30 04:15] LABS: Hematocrit 27.1 % (35.3-44.9); Immature Platelets 16.8 % (1.1-6.1); Mean Corpuscular HGB Conc 31.7 g/dL (31.6-35.5); Mean Corpuscular Hemoglobin 29.3 pg (28.0-33.3); Mean Corpuscular Volume 92.2 fL (83.0-100.0); Red Blood Count 2.94 M/mcL (3.82-4.97); Red Cell Distribution Width 18.2 % (11.5-14.5); White Blood Count 5.2 K/mcL (4.3-11.1)
[2019-09-30 04:16] LABS: Platelet Count 81 K/mcL (140-400)
[2019-09-30 04:21] LABS: Calcium 8.2 mg/dL (8.6-10.3); Potassium 3.8 mEq/L (3.5-5.1)
[2019-09-30] MEDS: *HR* Heparin 5,000 UNIT/ML VIAL SQ SCH ×2 (05:56→13:38)
[2019-09-30] MEDS: Insulin LISPRO 300 UNITS/3 ML VIAL SQ SCH ×2 (07:47→13:38)
[2019-09-30] MEDS: Ascorbic Acid 500 MG TABLET PO SCH (08:45)
[2019-09-30] MEDS: Sucralfate 1 GM TABLET PO SCH ×2 (08:45→13:38)
[2019-09-30] MEDS: Loratadine 10 MG TABLET PO SCH (08:45)
[2019-09-30] MEDS: Multivit/Ca/Min/Fe/FA 1 TAB TABLET PO SCH (08:46)
[2019-09-30] MEDS: Vitamin E 200 UNIT (90MG) CAPSULE PO SCH (08:46)
[2019-09-30] MEDS: Lactulose Oral Soln 20 GM/30 ML UDC PO SCH (08:47)
[2019-09-30] MEDS: Cefepime HCl 1,000 MG in Water for inj. (sterile) 10 ML IVP SCH (08:47)
[2019-09-30 12:21] VITALS: BP 148/79
== END 2019-09-30 14:11 | DRG 682 ==
LOC: EMEROOARM 10:22 → 2ANU 10:22 → SUATTDRO 17:30 → ICNU 21:02 → 2ANU 09-24 23:12
PROVIDERS: ADMIT Family Medicine; ATTEND Internal Medicine
PROC: ENDOEBX (2019-09-26 10:20)

== ENCOUNTER 2019-10-03 09:11 | Inpatient (IN) ==
[2019-10-03] MEDS ORDERED: 0.9 % Sodium Chloride 500 ML IVC ONE (09:17)
[2019-10-03] MEDS ORDERED: cefTRIAXone 1,000 MG in 0.9 % Sodium Chloride Mini Bag 100 ML IVPB ONE (09:33)
[2019-10-03 09:38] LABS: Basophils % 0.3 %; Red Blood Count 2.06 M/mcL (3.82-4.97)
[2019-10-03 09:40] LABS: Eosinophils # 0.1 K/mcL (0.0-0.6); Eosinophils % 0.7 %; Hematocrit 19.8 % (35.3-44.9); Hemoglobin 6.1 g/dL (11.5-15.4); Immature Granulocytes % 1.5 % (0-4); Immature Platelets 12.2 % (1.1-6.1); Lymphocytes # 1.2 K/mcL (0.6-4.6); Mean Corpuscular HGB Conc 30.8 g/dL (31.6-35.5); Mean Corpuscular Hemoglobin 29.6 pg (28.0-33.3); Mean Corpuscular Volume 96.1 fL (83.0-100.0); Mean Platelet Volume 13.3 fL (9.4-12.4); Monocytes # 0.4 K/mcL (0.0-1.3); Monocytes % 5.3 %; Neutrophils # 5.5 K/mcL (1.6-8.9); Nucleated Red Blood Cells 0.4 /100 WBC (0); Platelet Count 102 K/mcL (140-400); Red Cell Distribution Width 18.6 % (11.5-14.5); Segmented Neutrophils % 76.2 %; White Blood Count 7.2 K/mcL (4.3-11.1)
[2019-10-03 09:48] LABS: Albumin 2.2 g/dL (3.5-5.7); Albumin/Globulin Ratio 0.8 (1.1-2.2); Bilirubin,Total 0.3 mg/dL (0.3-1.0); Calcium 8.5 mg/dL (8.6-10.3); Globulin 2.9 g/dL (2.4-3.5); Total Protein 5.1 g/dL (6.4-8.9)
[2019-10-03 10:11] LABS: Troponin I 0.07 ng/mL (< 0.04)
[2019-10-03 10:33] LABS: Bilirubin,Urine Negative (Negative); Blood,Urine Large (Negative); Clarity,Urine Turbid (Clear); Color,Urine Light-Brown (Yellow); Glucose,Urine (UA) Normal (Normal); Ketones,Urine Negative (Negative); Leukocyte Esterase,Urine Large (Negative); Nitrite,Urine Negative (Negative); Protein,Urine 70 mg/dL (Neg-Trace); Specific Gravity,Urine 1.013 (1.010-1.025); Urobilinogen,Urine Normal (Normal)
[2019-10-03 10:37] LABS: Bacteria,Urine Moderate per hpf (None-Few)
[2019-10-03 10:38] LABS: RBC,Urine 30-50 per hpf (0-3); Squamous Epithelial Cell,Urine Few per hpf (None-Few); WBC,Urine TNTC per hpf (0-3)
[2019-10-03] MEDS ORDERED: Naloxone 0.4 MG/ML INJ IVP PRN (12:03)
[2019-10-03] MEDS ORDERED: Ondansetron 4 MG/2 ML VIAL IVP PRN (12:03)
[2019-10-03] MEDS ORDERED: *HR* Dextrose 50 % in Water (Vial) 50 ML VIAL IVP PRN (12:10)
[2019-10-03] MEDS ORDERED: D5% in Water 1,000 ML IVC PRN (12:10)
[2019-10-03] MEDS ORDERED: Dextrose Gel 15 GM/37.5 ML TUBE PO PRN ×2 (12:10)
[2019-10-03] MEDS ORDERED: 0.9 % Sodium Chloride 1,000 ML IVC SCH (12:15)
[2019-10-03] MEDS ORDERED: Lidocaine -MPF 2% 2 ML VIAL ONE ×2 (14:34→14:45)
[2019-10-03] MEDS ORDERED: *HR* Propofol 200 MG/20 ML VIAL IVP ONE (14:35)
[2019-10-03] MEDS ORDERED: *HR* EPINEPHrine 1 MG/10 ML SYRINGE INTRATRACH ONE (15:18)
[2019-10-03] MEDS ORDERED: 0.9 % Sodium Chloride 250 ML ONE (15:59)
[2019-10-03 16:03] LABS: Iron 70 mcg/dL (50-170)
[2019-10-03] MEDS: Cefepime HCl 1,000 MG in Water for inj. (sterile) 10 ML IVP SCH (16:03)
[2019-10-03] MEDS: Aspirin 81 MG TAB.CHEW PO SCH (16:04)
[2019-10-03] MEDS: Pantoprazole 40 MG VIAL IVP SCH ×2 (16:04→16:38)
[2019-10-03] MEDS: Insulin LISPRO 300 UNITS/3 ML VIAL SQ SCH (16:05)
[2019-10-03 16:21] LABS: Ferritin 504 ng/mL (10-120)
[2019-10-03] MEDS ORDERED: Insulin DETEMIR 100 UNIT/ML X5UNITS SQ SCH (21:00)
[2019-10-03] MEDS ORDERED: Insulin LISPRO 300 UNITS/3 ML VIAL SQ SCH (21:00)
[2019-10-03] MEDS: Pregabalin 75 MG CAPSULE PO SCH (21:08)
[2019-10-04 01:46] LABS: INR 1.5; Prothrombin Time 16.6 Seconds (9.4-12.1)
[2019-10-04 01:52] LABS: Basophils % 0.6 %; Eosinophils % 1.2 %; Immature Granulocytes % 1.2 % (0-4)
[2019-10-04 01:53] LABS: Eosinophils # 0.1 K/mcL (0.0-0.6); Hematocrit 26.4 % (35.3-44.9); Hemoglobin 8.4 g/dL (11.5-15.4); Immature Platelets 13.3 % (1.1-6.1); Lymphocytes # 0.6 K/mcL (0.6-4.6); Lymphocytes % 8.4 %; Mean Corpuscular HGB Conc 31.8 g/dL (31.6-35.5); Mean Corpuscular Volume 94.3 fL (83.0-100.0); Monocytes # 0.3 K/mcL (0.0-1.3); Monocytes % 4.1 %; Nucleated Red Blood Cells 0.4 /100 WBC (0); Red Cell Distribution Width 16.7 % (11.5-14.5); Segmented Neutrophils % 84.5 %; White Blood Count 6.9 K/mcL (4.3-11.1)
[2019-10-04 01:54] LABS: Neutrophils # 5.8 K/mcL (1.6-8.9); Platelet Count 84 K/mcL (140-400)
[2019-10-04 02:22] LABS: Magnesium 1.4 mg/dL (1.6-2.6); Phosphorous 2.2 mg/dL (2.7-4.5); Potassium 3.5 mEq/L (3.5-5.1)
[2019-10-04] MEDS: Pantoprazole 40 MG VIAL IVP SCH ×2 (05:56→16:27)
[2019-10-04] MEDS: Cefepime HCl 1,000 MG in Water for inj. (sterile) 10 ML IVP SCH ×2 (05:57→16:27)
[2019-10-04 06:39] LABS: Monocytes # 0.2 K/mcL (0.0-1.3); Monocytes % 4.9 %; White Blood Count 4.7 K/mcL (4.3-11.1)
[2019-10-04 06:40] LABS: Basophils % 0.9 %; Eosinophils # 0.1 K/mcL (0.0-0.6); Eosinophils % 1.5 %; Hematocrit 25.3 % (35.3-44.9); Hemoglobin 7.9 g/dL (11.5-15.4); Immature Granulocytes % 0.6 % (0-4); Immature Platelets 13.2 % (1.1-6.1); Lymphocytes # 0.6 K/mcL (0.6-4.6); Lymphocytes % 13.7 %; Mean Corpuscular HGB Conc 31.2 g/dL (31.6-35.5); Mean Corpuscular Hemoglobin 29.5 pg (28.0-33.3); Mean Corpuscular Volume 94.4 fL (83.0-100.0); Mean Platelet Volume 14.3 fL (9.4-12.4); Neutrophils # 3.7 K/mcL (1.6-8.9); Nucleated Red Blood Cells 0.4 /100 WBC (0); Red Blood Count 2.68 M/mcL (3.82-4.97); Red Cell Distribution Width 17.1 % (11.5-14.5); Segmented Neutrophils % 78.4 %
[2019-10-04 06:45] LABS: Platelet Count 84 K/mcL (140-400)
[2019-10-04 07:19] LABS: Platelet Estimate Normal (Normal)
[2019-10-04 08:21] LABS: Albumin 2.1 g/dL (3.5-5.7); Albumin/Globulin Ratio 0.8 (1.1-2.2); Bilirubin,Direct 0.1 mg/dL (0.0-0.2); Bilirubin,Indirect 0.2 mg/dL (0.0-1.0); Bilirubin,Total 0.3 mg/dL (0.3-1.0); Globulin 2.7 g/dL (2.4-3.5); Total Protein 4.8 g/dL (6.4-8.9); Troponin I 0.09 ng/mL (< 0.04)
[2019-10-04] MEDS: Insulin LISPRO 300 UNITS/3 ML VIAL SQ SCH ×3 (08:36→16:01)
[2019-10-04] MEDS: Aspirin 81 MG TAB.CHEW PO SCH (08:46)
[2019-10-04] MEDS: Pregabalin 75 MG CAPSULE PO SCH ×2 (08:46→21:04)
[2019-10-04] MEDS ORDERED: cefTRIAXone 1,000 MG in Water for inj. (sterile) 10 ML IVP SCH (09:00)
[2019-10-04 13:29] LABS: Hemoglobin 8.6 g/dL (11.5-15.4)
[2019-10-04 13:31] LABS: Hematocrit 28.4 % (35.3-44.9)
[2019-10-04] MEDS ORDERED: Insulin DETEMIR 100 UNIT/ML X5UNITS SQ SCH (21:00)
[2019-10-04] MEDS ORDERED: Acetaminophen IV 1,000 MG/100 ML INFUS..BTL IVPB ONE (23:05)
[2019-10-05 03:48] LABS: Hematocrit 25.4 % (35.3-44.9); Hemoglobin 7.9 g/dL (11.5-15.4); Immature Platelets 14.3 % (1.1-6.1); Mean Corpuscular HGB Conc 31.1 g/dL (31.6-35.5); Mean Corpuscular Hemoglobin 29.8 pg (28.0-33.3); Mean Corpuscular Volume 95.8 fL (83.0-100.0); Mean Platelet Volume 14.2 fL (9.4-12.4); Red Blood Count 2.65 M/mcL (3.82-4.97); Red Cell Distribution Width 17.1 % (11.5-14.5); White Blood Count 4.9 K/mcL (4.3-11.1)
[2019-10-05 04:05] LABS: INR 1.4; Prothrombin Time 16.3 Seconds (9.4-12.1)
[2019-10-05 04:08] LABS: Albumin 2.1 g/dL (3.5-5.7); Albumin/Globulin Ratio 0.8 (1.1-2.2); Bilirubin,Total 0.3 mg/dL (0.3-1.0); Calcium 7.8 mg/dL (8.6-10.3); Globulin 2.6 g/dL (2.4-3.5); Magnesium 1.6 mg/dL (1.6-2.6); Potassium 3.6 mEq/L (3.5-5.1); Total Protein 4.7 g/dL (6.4-8.9)
[2019-10-05] MEDS: Cefepime HCl 1,000 MG in Water for inj. (sterile) 10 ML IVP SCH ×2 (05:20→16:35)
[2019-10-05] MEDS: Pantoprazole 40 MG VIAL IVP SCH ×2 (05:20→16:35)
[2019-10-05] MEDS: Insulin LISPRO 300 UNITS/3 ML VIAL SQ SCH ×3 (07:44→16:07)
[2019-10-05] MEDS: Pregabalin 75 MG CAPSULE PO SCH ×2 (08:14→20:38)
[2019-10-05 10:55] LABS: Estimated Average Glucose 114 mg/dl
[2019-10-05] MEDS: Acetaminophen 325 MG TABLET PO PRN ×2 (12:56→20:38)
[2019-10-06] MEDS: Acetaminophen 325 MG TABLET PO PRN (02:55)
[2019-10-06 04:23] LABS: Basophils # 0.1 K/mcL (0.0-0.2); Basophils % 0.8 %; Eosinophils # 0.1 K/mcL (0.0-0.6); Hematocrit 29.4 % (35.3-44.9); Hemoglobin 9.3 g/dL (11.5-15.4); Immature Granulocytes % 0.8 % (0-4); Immature Platelets 14.1 % (1.1-6.1); Lymphocytes # 0.9 K/mcL (0.6-4.6); Lymphocytes % 14.7 %; Mean Corpuscular HGB Conc 31.6 g/dL (31.6-35.5); Mean Corpuscular Hemoglobin 30.1 pg (28.0-33.3); Mean Corpuscular Volume 95.1 fL (83.0-100.0); Mean Platelet Volume 13.9 fL (9.4-12.4); Monocytes # 0.4 K/mcL (0.0-1.3); Monocytes % 6.4 %; Neutrophils # 4.7 K/mcL (1.6-8.9); Nucleated Red Blood Cells 0.3 /100 WBC (0); Platelet Count 100 K/mcL (140-400); Red Blood Count 3.09 M/mcL (3.82-4.97); Red Cell Distribution Width 17.4 % (11.5-14.5); Segmented Neutrophils % 76.3 %; White Blood Count 6.1 K/mcL (4.3-11.1)
[2019-10-06 04:41] LABS: Calcium 8.2 mg/dL (8.6-10.3); Magnesium 1.4 mg/dL (1.6-2.6); Potassium 3.7 mEq/L (3.5-5.1)
[2019-10-06] MEDS: Cefepime HCl 1,000 MG in Water for inj. (sterile) 10 ML IVP SCH (05:27)
[2019-10-06] MEDS: Pantoprazole 40 MG VIAL IVP SCH (05:27)
[2019-10-06] MEDS: Insulin LISPRO 300 UNITS/3 ML VIAL SQ SCH ×2 (07:09→11:48)
[2019-10-06] MEDS: Pregabalin 75 MG CAPSULE PO SCH (07:21)
[2019-10-06 11:40] VITALS: BP 121/69
== END 2019-10-06 13:10 | DRG 377 ==
LOC: 2ANU 09:11 → EMEROOARM 09:11 → SUATTDRO 12:34 → 2ANU 13:11
PROVIDERS: ADMIT Student in an Organized Health Care Education/Training Program; ATTEND Internal Medicine

== ENCOUNTER 2019-10-22 23:20 | Inpatient (IN) ==
[2019-10-22] MEDS ORDERED: 0.9 % Sodium Chloride 1,000 ML IVC ONE (23:37)
[2019-10-23 00:26] LABS: Eosinophils % 0.7 %; Nucleated Red Blood Cells 0.2 /100 WBC (0)
[2019-10-23 00:28] LABS: Basophils # 0.1 K/mcL (0.0-0.2); Basophils % 0.6 %; Eosinophils # 0.1 K/mcL (0.0-0.6); Hematocrit 25.3 % (35.3-44.9); Immature Granulocytes % 2.1 % (0-4); Immature Platelets 12.6 % (1.1-6.1); Lymphocytes # 2.2 K/mcL (0.6-4.6); Lymphocytes % 17.7 %; Mean Corpuscular HGB Conc 31.6 g/dL (31.6-35.5); Mean Corpuscular Hemoglobin 29.7 pg (28.0-33.3); Mean Corpuscular Volume 94.1 fL (83.0-100.0); Monocytes # 0.6 K/mcL (0.0-1.3); Monocytes % 5.2 %; Platelet Count 293 K/mcL (140-400); Red Blood Count 2.69 M/mcL (3.82-4.97); Red Cell Distribution Width 17.3 % (11.5-14.5); Segmented Neutrophils % 73.7 %; White Blood Count 12.2 K/mcL (4.3-11.1)
[2019-10-23 00:31] LABS: INR 1.6; Prothrombin Time 18.6 Seconds (9.4-12.1)
[2019-10-23] MEDS ORDERED: Piperacillin/Tazobactam 3.375 GM in 0.9 % Sodium Chloride Mini Bag 100 ML IVPB ONE (00:33)
[2019-10-23] MEDS ORDERED: Vancomycin 1,250 MG/262.5 ML IV.SOLN IVPB ONE (00:33)
[2019-10-23 00:34] LABS: Activated Partial Thrombo Time 37.3 Seconds (26.0-36.0)
[2019-10-23 00:48] LABS: Alanine Aminotransferase 7 Units/L (7-52); Albumin 2.1 g/dL (3.5-5.7); Albumin/Globulin Ratio 0.7 (1.1-2.2); Alkaline Phosphatase 42 Units/L (34-104); Aspartate Amino Transferase 17 Units/L (13-39); BUN/Creatinine Ratio 22 (6-26); Bilirubin,Indirect 0.3 mg/dL (0.0-1.0); Bilirubin,Total 0.3 mg/dL (0.3-1.0); Blood Urea Nitrogen 60 mg/dL (8-23); Calcium 8.4 mg/dL (8.6-10.3); Carbon Dioxide 14 mEq/L (23-29); Chloride 105 mEq/L (98-107); Globulin 3.1 g/dL (2.4-3.5); Glucose 159 mg/dL (70-105); Lipase 114 Units/L (11-82); Magnesium 1.2 mg/dL (1.6-2.6); Osmolality,Calculated 288 (280-300); Phosphorous 4.3 mg/dL (2.7-4.5); Potassium 4.8 mEq/L (3.5-5.1); Sodium 129 mEq/L (136-145); Total Protein 5.2 g/dL (6.4-8.9); Troponin I < 0.03 ng/mL (< 0.04); eGFR For African Americans 21 (> 60); eGFR For Non-African Americans 17 (> 60)
[2019-10-23] MEDS ORDERED: 0.9 % Sodium Chloride 1,000 ML IVC ONE ×2 (01:40→11:59)
[2019-10-23 02:29] LABS: Adenovirus Not Detected (Not Detect); Coronavirus 229E Not Detected (Not Detect); Coronavirus HKU1 Not Detected (Not Detect); Coronavirus NL63 Not Detected (Not Detect); Coronavirus OC43 Not Detected (Not Detect)
[2019-10-23 02:30] LABS: Bordetella Pertussis Not Detected (Not Detect); Chlamydophila pneumoniae Not Detected (Not Detect); Human Metapneumovirus Not Detected (Not Detect); Human Rhinovirus/Enterovirus Not Detected (Not Detect); Influenza A Subtype 2009 H1 Not Detected (Not Detect); Influenza B Not Detected (Not Detect); Mycoplasma pneumoniae Not Detected (Not Detect); Parainfluenza Virus 1 Not Detected (Not Detect); Parainfluenza Virus 2 Not Detected (Not Detect); Parainfluenza Virus 3 Not Detected (Not Detect); Parainfluenza Virus 4 Not Detected (Not Detect); Respiratory Syncytial Virus Not Detected (Not Detect); SARS-CoV-2 Not Detected (Not Detect)
[2019-10-23 02:36] LABS: Bilirubin,Urine Small (Negative); Blood,Urine Large (Negative); Clarity,Urine Turbid (Clear); Color,Urine Yellow (Yellow); Glucose,Urine (UA) Normal (Normal); Ketones,Urine Negative (Negative); Leukocyte Esterase,Urine Large (Negative); Nitrite,Urine Negative (Negative); PH,Urine 5.5 pH Units (5.0-8.0); Protein,Urine >=300 mg/dL (Neg-Trace); Specific Gravity,Urine 1.025 (1.010-1.025); Urobilinogen,Urine Normal (Normal)
[2019-10-23 02:44] LABS: RBC,Urine 30-50 per hpf (0-3); Squamous Epithelial Cell,Urine Many per hpf (None-Few); WBC,Urine TNTC per hpf (0-3)
[2019-10-23 02:45] LABS: Bacteria,Urine Few per hpf (None-Few); Hyaline Casts,Urine None Seen per lpf (None Seen); Mucus,Urine Few per lpf (None-Few)
[2019-10-23] MEDS ORDERED: Ondansetron 4 MG/2 ML VIAL IVP PRN (02:53)
[2019-10-23] MEDS ORDERED: Naloxone 0.4 MG/ML INJ IVP PRN (02:53)
[2019-10-23] MEDS ORDERED: *HR* OxyCODONE/APAP 5/325 TABLET PO PRN (03:01)
[2019-10-23] MEDS ORDERED: D5% in Water 1,000 ML IVC PRN (03:08)
[2019-10-23] MEDS ORDERED: *HR* Dextrose 50 % in Water (Vial) 50 ML VIAL IVP PRN (03:08)
[2019-10-23] MEDS ORDERED: Dextrose Gel 15 GM/37.5 ML TUBE PO PRN ×2 (03:08)
[2019-10-23] MEDS: Ringers Solution, Lactated 1,000 ML IVC SCH ×2 (03:56→11:43)
[2019-10-23] MEDS ORDERED: Vancomycin 1 EACH in 0.9 % Sodium Chloride 250 ML IVPB PRN (04:00)
[2019-10-23 05:14] LABS: Calcium 7.9 mg/dL (8.6-10.3); Magnesium 1.1 mg/dL (1.6-2.6); Potassium 4.4 mEq/L (3.5-5.1)
[2019-10-23 06:36] LABS: Sodium, Urine 62.4 mEq/L
[2019-10-23] MEDS ORDERED: Piperacillin/Tazobactam 3.375 GM in 0.9 % Sodium Chloride Mini Bag 100 ML IVPB SCH ×2 (08:00→14:00)
[2019-10-23 08:40] LABS: Protein/Creatinine Ratio,Urine 3.67 mg/mg (0.00-0.20)
[2019-10-23] MEDS: Insulin LISPRO 300 UNITS/3 ML VIAL SQ SCH ×3 (08:53→18:31)
[2019-10-23] MEDS: Nystatin Ointment 15 GM TUBE TP SCH ×4 (08:59→21:43)
[2019-10-23] MEDS ORDERED: Fenofibrate 54 MG TABLET PO SCH (09:00)
[2019-10-23] MEDS ORDERED: Aspirin Enteric Coated 81 MG Tablet PO SCH (09:00)
[2019-10-23] MEDS ORDERED: Ascorbic Acid 500 MG TABLET PO SCH (09:00)
[2019-10-23] MEDS ORDERED: Lactobacillus 1 EACH CAP.SPRINK PO SCH (09:00)
[2019-10-23] MEDS ORDERED: Loratadine 10 MG TABLET PO SCH (09:00)
[2019-10-23] MEDS ORDERED: Silver Nitrate Applicator 1 STICK..EA. TP ONE ×2 (10:55→11:22)
[2019-10-23] MEDS ORDERED: 0.9 % Sodium Chloride 1,000 ML ONE (12:07)
[2019-10-23] MEDS ORDERED: DAPTOmycin 500 MG in 0.9 % Sodium Chloride 100 ML IVPB SCH (14:00)
[2019-10-23] MEDS ORDERED: *HR* LORazepam Oral Conc 2 MG/ML PO PRN (16:43)
[2019-10-23] MEDS: Morphine Sulfate Oral CONC 10 MG/0.5 ML ORAL.SYG SL PRN (18:32)
[2019-10-23] MEDS ORDERED: Insulin DETEMIR 100 UNIT/ML X5UNITS SQ SCH (21:00)
[2019-10-23] MEDS ORDERED: Insulin LISPRO 300 UNITS/3 ML VIAL SQ SCH (21:00)
[2019-10-24] MEDS: Morphine Sulfate Oral CONC 10 MG/0.5 ML ORAL.SYG SL PRN ×4 (00:40→23:25)
[2019-10-24] MEDS: Atropine Sulfate 1% 40 DROP/2 ML BOTTLE SL PRN ×2 (00:41→03:46)
[2019-10-24 02:55] LABS: Basophils % 0.2 %; Eosinophils % 0.1 %; Hematocrit 20.4 % (35.3-44.9); Hemoglobin 6.4 g/dL (11.5-15.4); Immature Granulocytes % 3.7 % (0-4); Immature Platelets 12.3 % (1.1-6.1); Lymphocytes # 1.3 K/mcL (0.6-4.6); Lymphocytes % 6.2 %; Mean Corpuscular HGB Conc 31.4 g/dL (31.6-35.5); Mean Corpuscular Hemoglobin 29.8 pg (28.0-33.3); Mean Corpuscular Volume 94.9 fL (83.0-100.0); Mean Platelet Volume 13.3 fL (9.4-12.4); Monocytes # 0.7 K/mcL (0.0-1.3); Monocytes % 3.4 %; Nucleated Red Blood Cells 0.1 /100 WBC (0); Platelet Count 256 K/mcL (140-400); Red Blood Count 2.15 M/mcL (3.82-4.97); Red Cell Distribution Width 17.4 % (11.5-14.5); Segmented Neutrophils % 86.4 %; White Blood Count 20.9 K/mcL (4.3-11.1)
[2019-10-24 02:57] LABS: Neutrophils # 18.1 K/mcL (1.6-8.9)
[2019-10-24 03:00] LABS: Calcium 7.8 mg/dL (8.6-10.3); Phosphorous 5.9 mg/dL (2.7-4.5); Potassium 5.4 mEq/L (3.5-5.1)
[2019-10-24 07:24] VITALS: BP 82/34
[2019-10-24] MEDS: Insulin LISPRO 300 UNITS/3 ML VIAL SQ SCH (07:47)
[2019-10-24] MEDS: Nystatin Ointment 15 GM TUBE TP SCH ×4 (07:55→20:55)
[2019-11-02] MEDS ORDERED: SECUKINUMAB 300 MG SQ SCH (09:00)
== END 2019-10-25 04:05 | disposition expired | DRG 853 ==
LOC: 2NNU 23:20 → EMEROOARM 23:20 → SUATTDRO 10-23 02:32 → 2NNU 10-23 03:03 → 2ANU 10-24 15:53
PROVIDERS: ADMIT Family Medicine; ATTEND Internal Medicine